=== PATIENT | female | born 1940 | race Caucasian/White ===

== ENCOUNTER → 2016-08-15 | Outpatient (CLI) | payer MEDICARE ==
[2016-08-15 12:30] LABS: Anion Gap 9 mmol/L; Blood Urea Nitrogen 22 mg/dL (7-17); Calcium 9.4 mg/dL (8.4-10.2); Carbon Dioxide 34 mmol/L (22-30); Chloride 99 mmol/L (98-107); Glucose 101 mg/dL (74-99); Magnesium 1.9 mg/dL (1.6-2.3); Non-African American GFR(MDRD) >60 (>60 ml/min/1.73 sqM); Sodium 142 mmol/L (137-145)
== END | disposition home or self-care (01) ==
LOC: LABWHC1 11:45
PROVIDERS: ATTEND Internal Medicine Interventional Cardiology
DX: I50.9 Heart failure, unspecified (principal); I10 Essential (primary) hypertension
CPT/HCPCS: 36415; 80048; 83735

== ENCOUNTER → 2016-09-29 | Outpatient (CLI) | payer MEDICARE ==
[2016-09-29 09:06] LABS: Basophils % (A) 1 %; CH 31.2; CHCM 31.3; Eosinophils # (A) 0.1 k/uL (0-0.7); Eosinophils % (A) 3 %; HCT 42.8 % (34.0-46.0); HGB 13.5 gm/dL (11.4-16.0); Hypochromasia Slight; Luc # (Auto) 0.16; Luc % (Auto) 3; Lymphocytes # (A) 1.6 k/uL (1.0-4.8); Lymphocytes % (A) 34 %; MCH 31.6 pg (25.0-35.0); MCHC 31.5 g/dL (31.0-37.0); MCV 100.2 fL (80.0-100.0); Macrocytosis Slight; Mean Platelet Volume 9.6; Monocytes # (A) 0.5 k/uL (0-1.0); Monocytes % (A) 10 %; Neutrophils # (A) 2.4 k/uL (1.3-7.7); Neutrophils % (A) 50 %; RBC 4.27 m/uL (3.80-5.40); RDW 14.4 % (11.5-15.5); WBC 4.8 k/uL (3.8-10.6); WBC (Perox) 5.26
[2016-09-29 09:08] LABS: INR 4.7 (<1.1); Prothrombin Time 46.1 sec (9.0-12.0)
[2016-09-29 09:20] LABS: Anion Gap 10 mmol/L; Blood Urea Nitrogen 18 mg/dL (7-17); Calcium 9.3 mg/dL (8.4-10.2); Carbon Dioxide 33 mmol/L (22-30); Chloride 101 mmol/L (98-107); Glucose 112 mg/dL (74-99); Non-African American GFR(MDRD) >60 (>60 ml/min/1.73 sqM); Potassium 4.1 mmol/L (3.5-5.1); Sodium 144 mmol/L (137-145)
== END | disposition home or self-care (01) ==
LOC: LABWHC1 08:35
PROVIDERS: ATTEND Internal Medicine Clinical Cardiac Electrophysiology
DX: E78.00 Pure hypercholesterolemia, unspecified (principal); I42.8 Other cardiomyopathies; I10 Essential (primary) hypertension
CPT/HCPCS: 36415; 80048; 85025; 85610

== ENCOUNTER 2016-10-02 14:30 | Day surgery (SDC) | payer MEDICARE ==
[2016-09-30 08:52] VITALS: BMI 31.0
[~2016-10-02 14:30] MED LIST: LACTATED RINGERS 1,000 ML IV SCH; LIDOCAINE 2% INJ 20 MG/ML SQ ONE; SODIUM CHLORIDE 0.9% 1,000 ML IV SCH; ceFAZolin 1,000 MG in SODIUM CHLORIDE 0.9% IRRIGATIO 250 ML IRRIGATION ONE; ceFAZolin 2 GM in SODIUM CHLORIDE 0.9% 100 ML IVPB ONE
[2016-10-02 15:20] LABS: INR 3.4 (<1.1); Prothrombin Time 33.3 sec (9.0-12.0)
--- NOTE | 2016-10-02 16:06 | P.PN ---
Progress Note - Text Patient arrived in the ESU at 1436 It is 4:06 PM at this time and the patient is not in the room on account of patient not being seen by the page designer
[2016-10-02] MEDS ORDERED: PROPOFOL 10 MG/ML 20 ML VIAL IV ONE (16:08)
[2016-10-02] MEDS ORDERED: MIDAZOLAM 2 MG/2 ML VIAL ONE (16:08)
[2016-10-02] MEDS ORDERED: ePHEDrine 50 MG/ML 1 ML AMP ONE (16:08)
[2016-10-02] MEDS ORDERED: fentaNYL (PF) 50 MCG/ML 2 ML AMP ONE (16:08)
[2016-10-02] MEDS ORDERED: IV FLUID CONTINUATION 1,000 ML IV ONE (16:08)
[2016-10-02] MEDS: ceFAZolin 1,000 MG in DEXTROSE/WATER 1 50ML.BAG IVPB STA ×2 (16:10→16:40)
--- NOTE | 2016-10-02 16:48 | P.PCN ---
Preoperative Diagnosis: Transvenous temporary pacing procedure Indication for the procedure: Severe underlying bradycardia, complete heart block, awaiting biventricular ICD generator change Patient was brought to the EP lab in a fasting state. Written informed consent was obtained prior to the procedure. The right groin was prepped and draped as a protocol. A 6-Kiswahili sheath was placed in the right femoral vein. Via this, a temporary pacing catheter was placed in the right ventricle. Thresholds were interrogated. Temporary pacing was performed through the rest of the procedure. At the end of the entire procedure, the TVP was removed. The sheath was removed and hemostasis was assured. Patient tolerated the procedure well without any acute complications. Procedure performed Transvenous temporary pacing
[2016-10-02] MEDS ORDERED: LIDOCAINE 1% INJ 10MG/ML (20 ML MDV) SQ ONE ×2 (17:06→17:25)
[2016-10-02] MEDS ORDERED: ACETAMINOPHEN TAB 325 MG TAB PO PRN (17:46)
[2016-10-02] MEDS ORDERED: HYDROcodone/APAP 5-325MG 1 EACH TAB PO PRN (17:46)
[2016-10-02] MEDS ORDERED: LORazepam 0.5 MG TAB PO PRN (17:47)
[2016-10-02] MEDS ORDERED: ACETAMINOPHEN IV (For NPO) 1,000 MG in EMPTY BAG 1 BAG IVPB ONE (18:15)
[2016-10-02] MEDS ORDERED: SODIUM CHLORIDE 0.9% 1,000 ML IV ONE ×2 (18:19)
[2016-10-02 18:35] VITALS: RESP 16
--- NOTE | 2016-10-02 19:12 | PCN ---
DATE OF PROCEDURE: Glenis Feliciano is a 75-year-old female with severe nonischemic cardiomyopathy with severe LV dysfunction and worsening heart failure status, class III. Over the last one year she has been more and more short of breath with tiredness and fatigue. She has also developed persistent atrial fibrillation. She has a biventricular ICD and is undergoing biventricular ICD generator change for normal battery depletion. The patient was brought to the EP lab in a fasting state. Written informed consent was obtained prior to the procedure. After the TVP was placed IV antibiotics were administered and then the left pectoral area was prepped and draped as per protocol. Lidocaine 1% was used for local anesthesia. An incision was made over the previous surgical site and carried down to the level of the generator. The old generator was explanted. The new generator was implanted. The leads were interrogated. The new generator was then implanted and secured to the underlying pectoralis muscle. The wound was closed in 3 layers and dressed per protocol. The chronic atrial lead was a Medtronic model #5076, serial #[id number]. She was in atrial fibrillation, pacing impedance 480 ohms. Chronic RV lead is a Medtronic model #6935, serial #[id number]. The patient has complete heart block, impedance 390 ohms. Pacing threshold 1 v at 0.5 ms. LV lead was a Medtronic model #4396, serial #[id number]. Pacing impedance 330 ohms. Pacing threshold 0.6 v at 0.5 ms. The old generator was a Medtronic [id number], serial #[id number]. The new generator was a [employer] model #ZV8747-52X, serial #[id number]. PROCEDURE: DFT testing under anesthesia. A shock and T-wave protocol was used to induce ventricular fibrillation. This was adequately and appropriately detected at least sensitivity and successfully internally defibrillated with a 10-joule shock. The charge time was 1.5 seconds. Shocking impedance 51 ohms. No post-shock noise. The device was then programmed to the MADIT-RIT programming. However, she does have complete heart block. PLAN: IV antibiotics. Start spironolactone. Check BNP. TSH was normal within the last 3 months. In view of worsening heart failure status, I would consider Entresto and conversion to sinus rhythm and maintenance rhythm with dofetilide.
--- NOTE | 2016-10-02 19:20 | LTR ---
October 02, 2016 RE: Glenis Feliciano Dear Taina, I had the pleasure of seeing Glenis Saezarirohit in electrophysiology followup. Taina underwent biventricular ICD generator change successfully. Leads are functioning normally. From a heart failure standpoint, she has shown progressive worsening over the last one year, probably corresponding with atrial fibrillation, and we will consider antiarrhythmic drug therapy for maintenance of sinus rhythm. I have also added spironolactone and will speak to Dr. Sanchez regarding addition of Entresto. Thank you for entrusting us with the care of your patient. Sincerely, ELIZABETH BADILLO MD
[2016-10-02] MEDS: SPIRONOLACTONE 25 MG TAB PO SCH (20:26)
[2016-10-02] MEDS: CARVEDILOL 6.25 MG TAB PO SCH (20:26)
[2016-10-02] MEDS: levETIRAcetam 500 MG TAB PO SCH (20:26)
[2016-10-02 20:38] LABS: Anion Gap 7 mmol/L; Blood Urea Nitrogen 14 mg/dL (7-17); Calcium 8.8 mg/dL (8.4-10.2); Carbon Dioxide 31 mmol/L (22-30); Chloride 102 mmol/L (98-107); Glucose 89 mg/dL (74-99); Non-African American GFR(MDRD) >60 (>60 ml/min/1.73 sqM); Potassium 3.9 mmol/L (3.5-5.1); Sodium 140 mmol/L (137-145)
[2016-10-02] MEDS: ceFAZolin 2 GM in SODIUM CHLORIDE 0.9% 100 ML IVPB SCH (22:27)
[2016-10-03] MEDS: ceFAZolin 2 GM in SODIUM CHLORIDE 0.9% 100 ML IVPB SCH ×3 (04:12→15:08)
[2016-10-03] MEDS ORDERED: LEVOTHYROXINE 100 MCG TAB PO SCH (06:30)
[2016-10-03] MEDS: CARVEDILOL 6.25 MG TAB PO SCH ×2 (08:10→18:36)
[2016-10-03] MEDS: SPIRONOLACTONE 25 MG TAB PO SCH (08:11)
[2016-10-03] MEDS: levETIRAcetam 500 MG TAB PO SCH (08:11)
--- NOTE | 2016-10-03 08:25 | DS ---
DATE OF ADMISSION: 10/02/2016 DATE OF DISCHARGE: Glenis is doing well. She is lying flat in bed. There is minimal soakage of the dressing. I removed her dressing over the ICD site. It is healing well. Heart sounds are normal. Breath sounds are normal. Her blood pressure is in normal range. She does have bilateral lower extremity edema and she is in atrial fibrillation. SUGGEST: Discharge home after completion of IV antibiotics, start spironolactone 25 mg p.o. daily and maximize further as tolerated. Her potassium is normal. Kidney function is normal. She has been complaining of increasing shortness of breath on exertion especially now more so with activities of daily living. She has been in atrial fibrillation for almost 1 year now. ( ) include maintenance of sinus rhythm with dofetilide since his renal function and potassium is normal and consideration for Entresto.
[2016-10-03 09:00] LABS: INR 3.2 (<1.1); Partial Thromboplastin Time 33.7 sec (22.0-30.0)
[2016-10-03] MEDS ORDERED: ASPIRIN 81 MG CHEW PO SCH (09:00)
[2016-10-03] MEDS ORDERED: FUROSEMIDE 20 MG TAB PO SCH (09:00)
[2016-10-03] MEDS ORDERED: LOSARTAN 50 MG TAB PO SCH (12:00)
[2016-10-03 12:56] VITALS: PULSE 59
[2016-10-03 16:17] VITALS: BP 116/68; TEMP 98.1
== END 2016-10-03 18:32 | disposition home or self-care (01) ==
LOC: CATHEP 14:30 → 3OBS 17:50 → CATHEP 10-03 18:32
PROVIDERS: ATTEND Internal Medicine Clinical Cardiac Electrophysiology
DX: Z45.02 Encounter for adjustment and management of automatic implantable cardiac defibrillator (principal); I44.2 Atrioventricular block, complete; R00.1 Bradycardia, unspecified; I48.2 Chronic atrial fibrillation; I34.0 Nonrheumatic mitral (valve) insufficiency; I42.8 Other cardiomyopathies; E78.00 Pure hypercholesterolemia, unspecified; I10 Essential (primary) hypertension; E03.9 Hypothyroidism, unspecified; G40.909 Epilepsy, unspecified, not intractable, without status epilepticus; Z86.73 Personal history of transient ischemic attack (TIA), and cerebral infarction without residual deficits; E78.5 Hyperlipidemia, unspecified; Z79.01 Long term (current) use of anticoagulants; Z79.82 Long term (current) use of aspirin; Z79.899 Other long term (current) drug therapy; Z88.8 Allergy status to other drugs, medicaments and biological substances; Z91.013 Allergy to seafood; Z87.891 Personal history of nicotine dependence
CPT/HCPCS: 93641; 33264; 80048; 85610 ×2; 85730; C1894; C1769; C1730; C1882; J2001 ×2; J2250; J0690 ×4; J3010; J2704

== ENCOUNTER 2016-10-30 12:05 | Day surgery (SDC) | payer MEDICARE ==
[~2016-10-30 12:05] MED LIST changes: -LACTATED RINGERS 1,000 ML IV SCH; -LIDOCAINE 2% INJ 20 MG/ML SQ ONE; -ceFAZolin 1,000 MG in SODIUM CHLORIDE 0.9% IRRIGATIO 250 ML IRRIGATION ONE
[2016-10-30 12:44] LABS: CH 32.1; HCT 36.7 % (34.0-46.0); HDW 2.15; HGB 11.9 gm/dL (11.4-16.0); MCH 32.8 pg (25.0-35.0); MCHC 32.5 g/dL (31.0-37.0); Macrocytosis Slight; Mean Platelet Volume 9.1; RBC 3.63 m/uL (3.80-5.40); RDW 14.9 % (11.5-15.5); WBC 4.2 k/uL (3.8-10.6)
[2016-10-30] MEDS ORDERED: LIDOCAINE 1% (PF) 10MG/ML VIAL SQ ONE ×2 (12:48)
[2016-10-30 12:50] LABS: INR 2.2 (<1.1); Prothrombin Time 21.1 sec (9.0-12.0)
[2016-10-30] MEDS ORDERED: CEPHALEXIN 500 MG CAP PO STA (12:56)
[2016-10-30 13:11] LABS: Anion Gap 8 mmol/L; Blood Urea Nitrogen 30 mg/dL (7-17); Calcium 9.6 mg/dL (8.4-10.2); Carbon Dioxide 30 mmol/L (22-30); Chloride 100 mmol/L (98-107); Glucose 91 mg/dL (74-99); Non-African American GFR(MDRD) >60 (>60 ml/min/1.73 sqM); Potassium 4.6 mmol/L (3.5-5.1); Sodium 138 mmol/L (137-145)
--- NOTE | 2016-10-30 13:18 | PCN ---
DATE OF PROCEDURE: Glenis Feliciano is an elderly female who underwent a generator change. She has a hematoma with a small area of oozing at the lateral border of the incision. She is brought in for suturing of that skin at the edge of the wound. Under local anesthesia, 3 silk sutures were placed at the lateral end of the wound; approximated the skin better. This was then dressed per protocol. Oral antibiotics were administered and she was discharged home in stable condition. We will see her in a week's time for suture removal.
== END 2016-10-30 13:25 | disposition home or self-care (01) ==
LOC: CATHEP 12:05
PROVIDERS: ATTEND Internal Medicine Clinical Cardiac Electrophysiology
DX: T81.31XA Disruption of external operation (surgical) wound, not elsewhere classified, initial encounter (principal); Z95.810 Presence of automatic (implantable) cardiac defibrillator; I48.2 Chronic atrial fibrillation; Z79.01 Long term (current) use of anticoagulants; I42.8 Other cardiomyopathies; E78.00 Pure hypercholesterolemia, unspecified; I10 Essential (primary) hypertension; E78.5 Hyperlipidemia, unspecified; Z87.891 Personal history of nicotine dependence; Z79.82 Long term (current) use of aspirin; Z79.899 Other long term (current) drug therapy; Z88.8 Allergy status to other drugs, medicaments and biological substances; Z91.013 Allergy to seafood
CPT/HCPCS: 83880; 80048; 85027; 85610; 12020; J2001

== ENCOUNTER → 2017-03-20 | Outpatient (CLI) | payer MEDICARE ==
[2017-03-20 11:46] LABS: CH 32.1; HCT 34.7 % (34.0-46.0); HDW 2.12; HGB 11.5 gm/dL (11.4-16.0); MCH 33.4 pg (25.0-35.0); MCHC 33.1 g/dL (31.0-37.0); MCV 100.9 fL (80.0-100.0); Mean Platelet Volume 9.1; RBC 3.44 m/uL (3.80-5.40); RDW 12.9 % (11.5-15.5); WBC 4.8 k/uL (3.8-10.6)
[2017-03-20 11:59] LABS: Anion Gap 8 mmol/L; Blood Urea Nitrogen 39 mg/dL (7-17); Calcium 9.5 mg/dL (8.4-10.2); Carbon Dioxide 27 mmol/L (22-30); Chloride 104 mmol/L (98-107); Cholesterol 182 mg/dL (<200); Glucose 99 mg/dL (74-99); HDL Cholesterol 76 mg/dL (40-60); Magnesium 1.8 mg/dL (1.6-2.3); Non-African American GFR(MDRD) 51 (>60 ml/min/1.73 sqM); Potassium 4.7 mmol/L (3.5-5.1); Sodium 139 mmol/L (137-145)
== END | disposition home or self-care (01) ==
LOC: LABWHC1 11:07
PROVIDERS: ATTEND Internal Medicine Interventional Cardiology
DX: E03.9 Hypothyroidism, unspecified (principal)
CPT/HCPCS: 36415; 80048; 80061; 83735; 84439; 84443; 85027

== ENCOUNTER → 2017-07-30 | Outpatient (CLI) | payer MEDICARE | END | disposition home or self-care (01) | LOC: MMGSC 15:39 | PROVIDERS: ATTEND Family Medicine | DX: R31.9 Hematuria, unspecified (principal) | CPT/HCPCS: 87086 ==

== ENCOUNTER 2017-12-03 10:26 | Day surgery (SDC) | payer MEDICARE ==
[2017-12-01 15:26] VITALS: BMI 25.4
[~2017-12-03 10:26] MED LIST changes: +LACTATED RINGERS 1,000 ML IV SCH; -SODIUM CHLORIDE 0.9% 1,000 ML IV SCH; -ceFAZolin 2 GM in SODIUM CHLORIDE 0.9% 100 ML IVPB ONE
[2017-12-03 11:19] VITALS: RESP 16; TEMP 97
[2017-12-03] MEDS ORDERED: LIDOCAINE 1% 20 ML VIAL (10MG/ML) FOR IV START INTRADERMA ONE (11:24)
[2017-12-03] MEDS ORDERED: PROPOFOL 10 MG/ML 20 ML VIAL IV ONE (11:47)
--- NOTE | 2017-12-03 12:31 | P.PCN ---
Date of Procedure: 12/03/17 Procedure(s) Performed: Procedure: Esophagogastroduodenoscopy and biopsy and esophageal dilation using the Microvasive mimtfem-cko-udpra balloon dilator up to 11 mm.. Preoperative diagnosis: Dysphagia. Postoperative diagnosis: 1. Hiatal hernia and stenosis in the distal esophagus that could represent benign or malignant stricture with retained food material proximal to the stricture. 2. Microvasive xuoqphu-fcd-cwzhs balloon dilator size then to 12 mm was used and was inflated to 11 mm to allow the advancement of the pediatric upper endoscope. 3. No obvious pathology in the stomach and duodenum including the retroflex view in the cardia. 4. Biopsies obtained in the distal esophagus to rule out malignancy. Preparation and sedation: Was provided by anesthesia. Brief clinical history: The patient is a 77-year-old female who was evaluated in the office and scheduled for this examination because of dysphagia of 1 month duration and weight loss. Procedure: With the patient on her left lateral decubitus position and after informed consent and adequate sedation, I passed the Olympus-GIF 160 video upper endoscope, which measures 9.9 mm, through the cricopharyngeus down the esophagus. There was retained food material in the esophagus that was gently advanced into the stomach by pressure with the endoscope. There was stenosis in the distal esophagus that would not allow the advancement of the endoscope. The distal esophagus showed irregularity and friability that in part could be related to the impacted food material as well as trauma from the endoscope. I proceeded to dilate the esophagus using the Microvasive alphrsl-oqk-mzqys balloon dilator size 10 to 12 mm., I centered it at the level of the stricture and inflated it in a stepwise fashion to 11 mm. As I was still not able to pass the endoscope through into the stomach despite dilation, I exchanged the endoscope for a pediatric upper endoscope which measured 9.2 mm. I was then able to pass the endoscope across the distal esophagus through a hiatal hernia into the stomach. The distal esophagus was showing some friability, nodularity and edema limited to the level of the GE junction and I suspected there could be a short segment of Paz's esophagus. I insufflated the stomach with air and inspected in the retroflex view in the cardia. No obvious abnormalities seen. Pyloric channel, duodenal bulb, post bulbar area and descending duodenum appeared within normal limits. At this point, I obtained biopsies in the distal esophagus before the endoscope was withdrawn. The patient tolerated the procedure well. Plan: I summarized the findings to the patient and the family. We will keep on clear liquids today before she can advance her diet tomorrow to full fluids then to advance further after that as tolerated. I will see her in the office in follow-up in a week or 10 days and consider repeat endoscopy and dilation or other interventions depending on her symptoms and biopsy results. I will keep you updated on her progress.
[2017-12-03 12:57] VITALS: BP 95/53; PULSE 62
== END 2017-12-03 13:18 | disposition home or self-care (01) ==
LOC: ORWHC2ENDO 10:26
DX: C15.9 Malignant neoplasm of esophagus, unspecified (principal); K44.9 Diaphragmatic hernia without obstruction or gangrene; K22.2 Esophageal obstruction; I48.91 Unspecified atrial fibrillation; I11.0 Hypertensive heart disease with heart failure; I50.9 Heart failure, unspecified; R56.9 Unspecified convulsions; E78.5 Hyperlipidemia, unspecified; Z95.810 Presence of automatic (implantable) cardiac defibrillator; Z86.73 Personal history of transient ischemic attack (TIA), and cerebral infarction without residual deficits; Z79.82 Long term (current) use of aspirin; Z79.899 Other long term (current) drug therapy; Z88.8 Allergy status to other drugs, medicaments and biological substances; Z91.013 Allergy to seafood
CPT/HCPCS: 88305; 43239; 43249; J2704; C1726

== ENCOUNTER → 2017-12-26 | Outpatient (CLI) | payer MEDICARE | END | disposition home or self-care (01) | LOC: RADPETMAIN 09:31 | PROVIDERS: ATTEND Internal Medicine Hematology & Oncology | DX: C15.9 Malignant neoplasm of esophagus, unspecified (principal); Z53.9 Procedure and treatment not carried out, unspecified reason ==

== ENCOUNTER 2018-01-28 14:18 | Observation (INO) | payer MEDICARE ==
[2018-01-28] MEDS ORDERED: IPRATROPIUM-ALBUTEROL 3 ML NEB INHALATION STA (14:52)
--- NOTE | 2018-01-28 14:58 | ED ---
General Adult HPI - General Chief complaint: Shortness of Breath Stated complaint: FAUSTINO/Esophagal Ca Time Seen by Provider: 01/28/18 14:36 Source: patient, family, RN notes reviewed Mode of arrival: wheelchair Limitations: no limitations - History of Present Illness Initial comments: Patient is a pleasant 77-year-old female presenting to the emergency department with shortness of breath and pain. Pain is throughout her abdomen and somewhat the left chest. Symptoms started around 24 hours or so ago. Patient has a known history of blood clots in her legs and is on anticoagulation for this. Patient has a recent diagnosis less than 2 months ago esophageal cancer. Patient did have PET scan showing metastasis to the liver. Patient has been here as well as on for hospital as well as [facility]. Patient did have stent placement of the esophagus twice and removed. Patient now does have a feeding tube present. - Related Data Home Medications Medication Instructions Recorded Confirmed Aspirin 81 mg PO DAILY 08/01/14 01/28/18 Levothyroxine Sodium [Synthroid] 100 mcg PO QAM 08/01/14 01/28/18 Sacubitril/Valsartan [Entresto 24 1 each PO BID 12/01/17 01/28/18 mg-26 mg Tablet] Acetaminophen Tab [Tylenol Tab] 325 - 650 mg PO Q4H PRN 01/28/18 01/28/18 Enoxaparin [Lovenox] 80 mg SQ Q12H 01/28/18 01/28/18 Folic Acid 1 mg PO DAILY 01/28/18 01/28/18 Furosemide [Lasix] 40 mg PO BID 01/28/18 01/28/18 Gabapentin [Neurontin] 100 mg PO TID 01/28/18 01/28/18 Hydrocodone/Acetaminophen [Hycet 5 - 10 ml PO Q4HR PRN 01/28/18 01/28/18 7.5 mg-325 mg/15 ml Soln] Omeprazole [PriLOSEC] 20 mg PO AC-BRKFST 01/28/18 01/28/18 Thiamine [Vitamin B-1] 100 mg PO DAILY 01/28/18 01/28/18 Allergies Allergy/AdvReac Type Severity Reaction Status Date / Time shellfish derived Allergy Vomiting Verified 01/28/18 15:56 Qxskyhh-Mfb-Rxz Reductase AdvReac MUSCLE Verified 01/28/18 15:56 Inhibitor PAINS Review of Systems ROS Statement: Those systems with pertinent positive or pertinent negative responses have been documented in the HPI. ROS Other: All systems not noted in ROS Statement are negative. Constitutional: Denies: fever Eyes: Denies: eye pain ENT: Denies: ear pain Respiratory: Reports: dyspnea. 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, pneumonia,bronchitis, esaphegal cancer History of Any Multi-Drug Resistant Organisms: None Reported Past Surgical History: AICD, Bladder Surgery, Cholecystectomy, Hysterectomy Additional Past Surgical History / Comment(s): difibrillator/pacemaker left chest-Medtronic, stent in esaphagus december 2017, feeding tube Past Anesthesia/Blood Transfusion Reactions: No Reported Reaction, Family History of Problems w/ Anesthesia Additional Past Anesthesia/Blood Transfusion Reaction / Comment(s): father had anesthesia for bladder bx and did not wake up after surgery at age 80 Type of Cardiac Device: AICD Device Placement Date:: 2016 Past Psychological History: No Psychological Hx Reported Smoking Status: Former smoker Past Alcohol Use History: Rare Past Drug Use History: None Reported - Past Family History father Family Medical History: Cancer Additional Family Medical History / Comment(s): bladder mother Family Medical History: Congestive Heart Failure (CHF), Deep Vein Thrombosis ( DVT) General Exam Limitations: no limitations General appearance: alert, in no apparent distress Head exam: Present: atraumatic Eye exam: Present: normal appearance, PERRL ENT exam: Present: normal oropharynx Neck exam: Present: normal inspection Respiratory exam: Present: decreased breath sounds (Left lower lobe) Cardiovascular Exam: Present: irregular rhythm GI/Abdominal exam: Present: soft, tenderness (Diffuse abdominal tenderness). Absent: distended Extremities exam: Present: pedal edema. Absent: calf tenderness Neurological exam: Present: alert Psychiatric exam: Present: normal affect, normal mood Skin exam: Present: normal color Course Vital Signs 07/26/18 07/26/18 07/26/18 14:21 15:15 15:27 Temperature 98.2 F Pulse Rate 61 55 L 49 L Respiratory 22 Rate Blood Pressure 106/66 O2 Sat by Pulse 99 Oximetry EKG Findings - EKG Comments: EKG Findings:: Atrial flutter with a rate of 67. QRS 152. QT 508. QTC 536. Normal axis. Left bundle branch block. Nonspecific ST-T. Medical Decision Making - Medical Decision Making Patient does have CHF. Case was discussed in detail with Dr. Dyson, covering with [facility], who will admit for Dr. Denis. He is aware CT is pending. Patient updated. - Lab Data Result diagrams: 01/28/18 14:58 01/28/18 14:58 Lab Results 01/28/18 01/28/18 01/28/18 Range/Units 14:58 14:58 14:58 WBC 8.1 (3.8-10.6) k/uL RBC 2.91 L (3.80-5.40) m/uL Hgb 8.7 L (11.4-16.0) gm/dL Hct 27.6 L (34.0-46.0) % MCV 94.7 (80.0-100.0) fL MCH 30.0 (25.0-35.0) pg MCHC 31.6 (31.0-37.0) g/dL RDW 15.4 (11.5-15.5) % Plt Count 307 (150-450) k/uL Neutrophils % 71 % Lymphocytes % 19 % Monocytes % 7 % Eosinophils % 0 % Basophils % 0 % Neutrophils # 5.7 (1.3-7.7) k/uL Lymphocytes # 1.5 (1.0-4.8) k/uL Monocytes # 0.6 (0-1.0) k/uL Eosinophils # 0.0 (0-0.7) k/uL Basophils # 0.0 (0-0.2) k/uL Hypochromasia Marked Poikilocytosis Slight PT (9.0-12.0) sec INR (<1.2) APTT (22.0-30.0) sec Sodium 134 L (137-145) mmol/L Potassium 4.1 (3.5-5.1) mmol/L Chloride 91 L (98-107) mmol/L Carbon Dioxide 32 H (22-30) mmol/L Anion Gap 11 mmol/L BUN 24 H (7-17) mg/dL Creatinine 0.60 (0.52-1.04) mg/dL Est GFR (CKD-EPI)AfAm >90 (>60 ml/min/1.73 sqM) Est GFR (CKD-EPI)NonAf 89 (>60 ml/min/1.73 sqM) Glucose 145 H (74-99) mg/dL Calcium 8.3 L (8.4-10.2) mg/dL Total Bilirubin 0.6 (0.2-1.3) mg/dL AST 58 H (14-36) U/L ALT 52 (9-52) U/L Alkaline Phosphatase 133 H (38-126) U/L NT-Pro-B Natriuret Pep 8570 pg/mL Total Protein 7.0 (6.3-8.2) g/dL Albumin 3.0 L (3.5-5.0) g/dL 01/28/18 Range/Units 14:58 WBC (3.8-10.6) k/uL RBC (3.80-5.40) m/uL Hgb (11.4-16.0) gm/dL Hct (34.0-46.0) % MCV (80.0-100.0) fL MCH (25.0-35.0) pg MCHC (31.0-37.0) g/dL RDW (11.5-15.5) % Plt Count (150-450) k/uL Neutrophils % % Lymphocytes % % Monocytes % % Eosinophils % % Basophils % % Neutrophils # (1.3-7.7) k/uL Lymphocytes # (1.0-4.8) k/uL Monocytes # (0-1.0) k/uL Eosinophils # (0-0.7) k/uL Basophils # (0-0.2) k/uL Hypochromasia Poikilocytosis PT 13.2 H (9.0-12.0) sec INR 1.4 H (<1.2) APTT 36.6 H (22.0-30.0) sec Sodium (137-145) mmol/L Potassium (3.5-5.1) mmol/L Chloride (98-107) mmol/L Carbon Dioxide (22-30) mmol/L Anion Gap mmol/L BUN (7-17) mg/dL Creatinine (0.52-1.04) mg/dL Est GFR (CKD-EPI)AfAm (>60 ml/min/1.73 sqM) Est GFR (CKD-EPI)NonAf (>60 ml/min/1.73 sqM) Glucose (74-99) mg/dL Calcium (8.4-10.2) mg/dL Total Bilirubin (0.2-1.3) mg/dL AST (14-36) U/L ALT (9-52) U/L Alkaline Phosphatase (38-126) U/L NT-Pro-B Natriuret Pep pg/mL Total Protein (6.3-8.2) g/dL Albumin (3.5-5.0) g/dL - Radiology Data Radiology results: image reviewed (Chest x-ray shows cardiomegaly with pulmonary venous congestion. Left basilar infiltrate.) Disposition Clinical Impression: Congestive heart failure Disposition: ADMITTED IP TO THIS HOSP Is patient prescribed a controlled substance at d/c from ED?: No Referrals: Taina Ramirez MD [Primary Care Provider] - 1-2 days Decision Time: 17:22
[2018-01-28 15:14] LABS: Basophils % (A) 0 %; Eosinophils % (A) 0 %; HCT 27.6 % (34.0-46.0); HGB 8.7 gm/dL (11.4-16.0); Hypochromasia Marked; Lymphocytes # (A) 1.5 k/uL (1.0-4.8); Lymphocytes % (A) 19 %; MCHC 31.6 g/dL (31.0-37.0); MCV 94.7 fL (80.0-100.0); Monocytes # (A) 0.6 k/uL (0-1.0); Monocytes % (A) 7 %; Neutrophils # (A) 5.7 k/uL (1.3-7.7); Neutrophils % (A) 71 %; Platelet Count 307 k/uL (150-450); Poikilocytosis Slight; RBC 2.91 m/uL (3.80-5.40); RDW 15.4 % (11.5-15.5); WBC 8.1 k/uL (3.8-10.6)
[2018-01-28 15:20] LABS: ALT 52 U/L (9-52); Alkaline Phosphatase 133 U/L (38-126); Anion Gap 11 mmol/L; Calcium 8.3 mg/dL (8.4-10.2); Carbon Dioxide 32 mmol/L (22-30); Chloride 91 mmol/L (98-107); Glucose 145 mg/dL (74-99); Sodium 134 mmol/L (137-145); Total Bilirubin 0.6 mg/dL (0.2-1.3)
[2018-01-28 15:27] LABS: INR 1.4 (<1.2); Partial Thromboplastin Time 36.6 sec (22.0-30.0); Prothrombin Time 13.2 sec (9.0-12.0)
[2018-01-28 15:31] LABS: AST 58 U/L (14-36); Blood Urea Nitrogen 24 mg/dL (7-17); Potassium 4.1 mmol/L (3.5-5.1)
[2018-01-28] MEDS ORDERED: methylPREDNISolone SOD SUCCI 125 MG/2 ML VIAL IV STA (15:40)
[2018-01-28] MEDS ORDERED: FAMOTIDINE 20 MG/2 ML VIAL IV STA (15:40)
[2018-01-28] MEDS ORDERED: diphenhydrAMINE 50 MG/ML 1 ML VIAL IVP STA (15:40)
--- NOTE | 2018-01-28 15:54 | XR ---
EXAMINATION TYPE: XR chest 2V DATE OF EXAM: 01/28/2018 COMPARISON: August 29, 2015 HISTORY: Shortness of breath TECHNIQUE: Frontal and lateral views of the chest are obtained. FINDINGS: Scattered senescent parenchymal changes noted. Hyperinflation compatible with COPD. Cardiomegaly with pulmonary venous congestion and left basilar infiltrate. Mediastinal structures are stable and grossly unremarkable. No evidence for hilar prominence. Degenerative changes dorsal spine. IMPRESSION: 1. Cardiomegaly with pulmonary venous congestion and left basilar infiltrate.
[2018-01-28] MEDS ORDERED: ASPIRIN 325 MG TAB PO STA (17:23)
--- NOTE | 2018-01-28 17:39 | CT ---
EXAMINATION TYPE: CT angio chest with contrast and with 3-D reconstruction renderings DATE OF EXAM: 01/28/2018 5:29 PM COMPARISON: None. HISTORY: Difficulty breathing. CT DLP: 110.2 mGycm Automated exposure control for dose reduction was used. CONTRAST: CTA scan of the thorax is performed with IV Contrast, patient injected with 100 mL of Isovue 370, pul monary embolism protocol. 3-D reconstructions. FINDINGS: There is marked cardiomegaly and panchamber enlargement with coronary calcifications. There are moderate bilateral pleural effusions with moderate passive atelectasis of the lower lobes b ilaterally. There is evidence of interstitial phase pulmonary edema. The pulmonary arterial tree is widely patent without evidence of pulmonary emboli, but the pulmonary arterial tree is prominent in caliber which can correlate with a clinical diagnosis of pulmonary hype rtension. The aorta is not opacified well, but is unremarkable as seen. Skeletal structures are unremarkable. Visualized extrathoracic soft tissues are unremarkable. IMPRESSION: 1. Negative for pulmonary embolism. 2. Positive for bilateral pleural effusions and bibasilar atelectasis and interstitial phase pulmonar y edema.
[2018-01-28] MEDS: FUROSEMIDE 10 MG/ML 4 ML VIAL IV SCH (17:57)
--- NOTE | 2018-01-28 17:58 | CT ---
EXAMINATION TYPE: CT abdomen pelvis w con DATE OF EXAM: 01/28/2018 COMPARISON: None HISTORY: Pain CT DLP: 1301.6 mGycm Automated exposure control for dose reduction was used. TECHNIQUE: Helical acquisition of images was performed from the lung bases through the pelvis. CONTRAST: Performed without Oral Contrast and with IV Contrast, patient injected with 100 mL of Isovu e 370. FINDINGS: VISUALIZED SUPRADIAPHRAGMATIC STRUCTURES: Please refer to chest CTA report. Moderate bilateral pleura l effusions with prominent bibasilar atelectasis. Marked cardiomegaly with interstitial phase pulmona ry edema. LIVER/GB: There are numerous 1 cm, too centimeter and 3 cm low-attenuation spherical lesions within t he liver, having the appearance of metastatic neoplasm. Biliary tree unremarkable. PANCREAS: No significant abnormality is seen. SPLEEN: No significant abnormality is seen. ADRENALS: No significant abnormality is seen. KIDNEYS: No significant abnormality is seen. PERITONEAL CAVITY: There is a small volume of dependent fluid in the pelvic cul-de-sac. No pneumoperi toneum. ADENOPATHY: None visualized REPRODUCTIVE ORGANS: No significant abnormality is seen URINARY BLADDER: No significant abnormality is seen. PELVIC ADENOPATHY: None visualized. OSSEOUS STRUCTURES: No significant abnormality is seen. BOWEL: No significant abnormality is seen. VASCULATURE: No acute findings. OTHER: Prominent subcutaneous edematous changes seen circumferentially. IMPRESSION: 1. MULTIFOCAL LIVER LESIONS, HAVING THE APPEARANCE OF METASTATIC NEOPLASM. 2. MILD VOLUME SIMPLE-APPEARING PERITONEAL FLUID WITHIN THE CUL-DE-SAC.
[2018-01-28] MEDS ORDERED: Potassium Replacement Protocol 1 EACH MISC MISCELLANE PRN (17:59)
[2018-01-28] MEDS ORDERED: Magnesium Replacement Protocol 1 EACH MISC MISCELLANE PRN (17:59)
[2018-01-28] MEDS ORDERED: LACTULOSE 20 GM/30 ML CUP PO ONE (18:03)
--- NOTE | 2018-01-28 18:12 | P.HPIM ---
History of Present Illness H&P Date: 01/28/18 Chief Complaint: Shortness of breath This is a 77-year-old female with very complex past medical history significant for recently diagnosed metastatic esophageal cancer, underlying systolic heart failure, and chronic atrial fibrillation who presented to the emergency room with shortness of breath. Patient is a very poor historian. She told me that she had a follow-up appointment with her oncologist last week and after work she started feeling more short of breath. She said that her shortness of breath got significantly worse yesterday and today. She said that usually she is able to ambulate but in the last 24 hours she was feeling short of breath with minimal exertion. She also reported worsening bilateral lower extremity edema. Apparently, patient was diagnosed with metastatic esophageal cancer approximately 2 months ago and subsequently had an esophageal stent placed twice that failed and subsequently underwent a PEG tube insertion and currently getting all of her feeding through the PEG tube. Patient is also complaining of abdominal pain that she describes as generalized. She said that this being going on for 2 months. It's all over her abdomen. She rated as mild and 4 out of 10 in severity. Patient reports constipation and last bowel movement was several days ago. She otherwise denies nausea or vomiting. No fevers or chills. Patient was evaluated in the emergency room, and was found to have significant fluid overload both clinically and on chest x-ray. She underwent computed tomography scan of the chest, abdomen, and pelvis that report is still pending. She is being admitted for further evaluation. Review of Systems Review of system: 14 points review of systems were obtained and were negative except to what were mentioned in the HPI. 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, pneumonia,bronchitis, esaphegal cancer History of Any Multi-Drug Resistant Organisms: None Reported Past Surgical History: AICD, Bladder Surgery, Cholecystectomy, Hysterectomy Additional Past Surgical History / Comment(s): difibrillator/pacemaker left chest-Medtronic, stent in esaphagus december 2017, feeding tube Past Anesthesia/Blood Transfusion Reactions: No Reported Reaction, Family History of Problems w/ Anesthesia Additional Past Anesthesia/Blood Transfusion Reaction / Comment(s): father had anesthesia for bladder bx and did not wake up after surgery at age 80 Type of Cardiac Device: AICD Device Placement Date:: 2016 Past Psychological History: No Psychological Hx Reported Smoking Status: Former smoker Past Alcohol Use History: Rare Past Drug Use History: None Reported - Past Family History father Family Medical History: Cancer Additional Family Medical History / Comment(s): bladder mother Family Medical History: Congestive Heart Failure (CHF), Deep Vein Thrombosis ( DVT) Medications and Allergies Home Medications Medication Instructions Recorded Confirmed Type Aspirin 81 mg PO DAILY 08/01/14 01/28/18 History Levothyroxine Sodium [Synthroid] 100 mcg PO QAM 08/01/14 01/28/18 History Sacubitril/Valsartan [Entresto 24 1 each PO BID 12/01/17 01/28/18 History mg-26 mg Tablet] Acetaminophen Tab [Tylenol Tab] 325 - 650 mg PO Q4H PRN 01/28/18 01/28/18 History Enoxaparin [Lovenox] 80 mg SQ Q12H 01/28/18 01/28/18 History Folic Acid 1 mg PO DAILY 01/28/18 01/28/18 History Furosemide [Lasix] 40 mg PO BID 01/28/18 01/28/18 History Gabapentin [Neurontin] 100 mg PO TID 01/28/18 01/28/18 History Hydrocodone/Acetaminophen [Hycet 5 - 10 ml PO Q4HR PRN 01/28/18 01/28/18 History 7.5 mg-325 mg/15 ml Soln] Omeprazole [PriLOSEC] 20 mg PO AC-BRKFST 01/28/18 01/28/18 History Thiamine [Vitamin B-1] 100 mg PO DAILY 01/28/18 01/28/18 History Allergies Allergy/AdvReac Type Severity Reaction Status Date / Time shellfish derived Allergy Vomiting Verified 01/28/18 15:56 Zwqqqcj-Wai-Yqi Reductase AdvReac MUSCLE Verified 01/28/18 15:56 Inhibitor PAINS Physical Exam Vitals: Vital Signs Temp Pulse Resp BP Pulse Ox 01/28/18 18:00 97.9 F 60 18 131/70 98 01/28/18 15:27 49 L 01/28/18 15:15 55 L 07/26/18 14:21 98.2 F 61 22 106/66 99 Intake and Output 01/28/18 01/28/18 01/28/18 06:59 14:59 22:59 Other: Weight 68.039 kg General: The patient is awake and alert, in no distress. She appears chronically ill Eye: there is normal conjunctiva bilaterally. Neck: The neck is supple Cardiovascular: Heart sounds are distant. Normal S1-S2, no S3-S4, no murmurs. Respiratory: Lungs with bibasilar crackles Gastrointestinal: Abdomen is soft, nontender. PEG tube in place Musculoskeletal: There is +2-3 pedal edema. Neurological:. Speech is normal. Skin: Skin is warm and dry Results CBC & Chem 7: 01/28/18 14:58 01/28/18 14:58 Labs: Abnormal Lab Results - Last 24 Hours (Table) 01/28/18 01/28/18 01/28/18 Range/Units 14:58 14:58 14:58 RBC 2.91 L (3.80-5.40) m/uL Hgb 8.7 L (11.4-16.0) gm/dL Hct 27.6 L (34.0-46.0) % PT 13.2 H (9.0-12.0) sec INR 1.4 H (<1.2) APTT 36.6 H (22.0-30.0) sec Sodium 134 L (137-145) mmol/L Chloride 91 L (98-107) mmol/L Carbon Dioxide 32 H (22-30) mmol/L BUN 24 H (7-17) mg/dL Glucose 145 H (74-99) mg/dL Calcium 8.3 L (8.4-10.2) mg/dL AST 58 H (14-36) U/L Alkaline Phosphatase 133 H (38-126) U/L Albumin 3.0 L (3.5-5.0) g/dL Assessment and Plan Assessment: 1. Acute systolic heart failure exacerbation, with elevated BNP and evidence of fluid overload both clinically and on x-ray. Started on IV Lasix 40 mg every 8 hours. I would obtain echocardiogram as no recent echo is available for me to review. Cardiology consulted. We will continue telemetry monitoring. Monitor kidney function and electrolytes closely. 2. Dyspnea, most likely secondary to underlying heart failure exacerbation. Computed tomography scan of the chest was negative for PE. 3. 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 Plan to follow up with her oncologist at [facility] as directed in February. Not on any chemotherapy as of now 4. Chronic atrial fibrillation: Rate controlled. 12-lead ECG in the emergency room showed atrial flutter. Cardiology consulted for further evaluation 5. History of chronic lower extremity DVT, on anticoagulation with Lovenox. We will continue 6. Constipation, awaiting computed tomography scan of the abdomen report. I would give one-time dose of lactulose. Abdomen is soft and nontender. 7. Status post PEG tube insertion secondary to underlying esophageal cancer. Continue tube feeding. Dietitian consulted. Today, I reviewed her medication list and lab work results. No family members at bedside at this time. We will continue current regimen. Repeat lab work in the morning. Appreciate consultants recommendations.
[2018-01-28] MEDS: NITROGLYCERIN OINT 1 INCH/GM PACKET TOPICAL SCH ×2 (18:40→21:57)
[2018-01-28 18:47] LABS: Amylase 116 U/L (30-110); Lipase 652 U/L (23-300)
[2018-01-28] MEDS: ENOXAPARIN 80 MG/0.8 ML SYRINGE SQ SCH (21:43)
[2018-01-28] MEDS: GABAPENTIN 100 MG CAP PO SCH (21:44)
[2018-01-28] MEDS: SACUBITRIL/VALSARTAN 24 MG-26 MG TABLET PO SCH (21:44)
[2018-01-29] MEDS: FUROSEMIDE 10 MG/ML 4 ML VIAL IV SCH ×3 (01:12→21:07)
[2018-01-29] MEDS: HYDROcodone/APAP 7.5-325MG 1 EACH TAB PO PRN ×2 (04:34→12:54)
[2018-01-29] MEDS ORDERED: LEVOTHYROXINE 100 MCG TAB PO SCH ×2 (06:30→09:00)
[2018-01-29 06:32] LABS: Anion Gap 5 mmol/L; Blood Urea Nitrogen 22 mg/dL (7-17); Calcium 8.1 mg/dL (8.4-10.2); Carbon Dioxide 35 mmol/L (22-30); Chloride 93 mmol/L (98-107); Glucose 137 mg/dL (74-99); Magnesium 1.8 mg/dL (1.6-2.3); Potassium 3.6 mmol/L (3.5-5.1); Sodium 133 mmol/L (137-145)
[2018-01-29] MEDS: PANTOPRAZOLE 40 MG TABLET PO SCH (06:35)
[2018-01-29] MEDS: LEVOTHYROXINE 100 MCG TAB PO SCH (06:36)
[2018-01-29 06:38] LABS: Basophils % (A) 0 %; Eosinophils % (A) 0 %; HCT 23.4 % (34.0-46.0); HGB 7.4 gm/dL (11.4-16.0); Hypochromasia Marked; Lymphocytes # (A) 0.9 k/uL (1.0-4.8); Lymphocytes % (A) 17 %; MCH 30.9 pg (25.0-35.0); MCHC 31.9 g/dL (31.0-37.0); MCV 96.9 fL (80.0-100.0); Mean Platelet Volume 9.1; Monocytes # (A) 0.2 k/uL (0-1.0); Monocytes % (A) 3 %; Neutrophils # (A) 4.1 k/uL (1.3-7.7); Neutrophils % (A) 79 %; Platelet Count 249 k/uL (150-450); Poikilocytosis Slight; RBC 2.41 m/uL (3.80-5.40); RDW 15.9 % (11.5-15.5); WBC 5.2 k/uL (3.8-10.6)
[2018-01-29] MEDS ORDERED: PANTOPRAZOLE 40 MG TABLET PO SCH ×2 (07:30→09:00)
[2018-01-29] MEDS ORDERED: ASPIRIN 81 MG PO SCH (09:00)
[2018-01-29] MEDS: SACUBITRIL/VALSARTAN 24 MG-26 MG TABLET PO SCH ×2 (09:44→21:07)
[2018-01-29] MEDS: ENOXAPARIN 80 MG/0.8 ML SYRINGE SQ SCH ×2 (09:44→21:07)
[2018-01-29] MEDS: THIAMINE 100 MG TAB PO SCH (09:45)
[2018-01-29] MEDS: GABAPENTIN 100 MG CAP PO SCH ×3 (09:45→21:07)
[2018-01-29] MEDS: FOLIC ACID 1 MG TAB PO SCH (09:45)
--- NOTE | 2018-01-29 09:48 | P.CRDCN ---
History of Present Illness Consult date: 01/29/18 Requesting physician: Daina Ni Reason for Consult (text): CHF Chief complaint: shortness of breath History of present illness: This is a pleasant 77-year-old female patient who follows with Dr. CAROLYNN Sanchez in the office. She has a known history of nonischemic cardiomyopathy, biventricular ICD, CVA, seizure disorders, dyslipidemia, hypertension, persistent atrial fibrillation, recent G-tube placement and recent diagnosis of esophageal cancer with liver metastasis. She was apparently off of Entresto for about 2 weeks. She presented to the emergency department with complaints of progressively worsening shortness of breath as well as abdominal pain. She denied PND or orthopnea but did notice some increased edema in her lower extremities. This x-ray on admission showed cardiomegaly with pulmonary venous congestion and a left basilar infiltrate. Computed tomography scan of the abdomen showed multifocal liver lesions having the appearance of metastatic neoplasm. CTA of the chest was negative for pulmonary embolism but did show positive for bilateral pleural effusions and bibasilar atelectasis and interstitial phase pulmonary edema. EKG on admission showed atrial flutter with a biventricular pacing. She is currently on Lovenox. Laboratory values were reviewed and showed hemoglobin of 7.4 this morning, down from 8.7. BUN of 22, creatinine 0.59, NT proBNP 8570 with elevated AST, alkaline phosphatase, amylase and lipase. Available echocardiogram from the office done in October 2016 showed severely decreased systolic function with ejection fraction of 35%, mild mitral regurgitation, mild to moderate aortic regurgitation and moderate tricuspid regurgitation with moderately increased PASP. She did have repeat echocardiogram done yesterday for which results are not available. Upon examination, patient is resting in bed. She continues to complain of abdominal pain however feels her breathing has significantly improved. She is currently on Lasix 40 mg IV push every 8 hours. She is diuresing well. Her Entresto has been resumed. Past Medical History Past Medical History: Atrial Fibrillation, Cancer, Heart Failure, CVA/TIA, Deep Vein Thrombosis (DVT), Pneumonia, Seizure Disorder, Thyroid Disorder Additional Past Medical History / Comment(s): hx difficulty swallowing and keeping solids down specifically meats/had egd w/ bx -positive for esophageal cancer-has had esophageal dilations w/2 stents since removed no chemo or radiation. pt stated pet scan spots on liver. last stroke mar 2011 (rt hand weaker), post stroke seizures last seizure December 2013, pneumonia,bronchitis, uti History of Any Multi-Drug Resistant Organisms: None Reported Past Surgical History: AICD, Bladder Surgery, Cholecystectomy, Hysterectomy Additional Past Surgical History / Comment(s): difibrillator/pacemaker 2016, left chest-Medtronic, stent in esaphagus december 2017, feeding tube ,egd/ dilations. stents(since removed) Past Anesthesia/Blood Transfusion Reactions: No Reported Reaction, Family History of Problems w/ Anesthesia Additional Past Anesthesia/Blood Transfusion Reaction / Comment(s): father had anesthesia for bladder bx and did not wake up after surgery at age 80 Type of Cardiac Device: AICD Device Placement Date:: 2016 Smoking Status: Never smoker - Past Family History father Family Medical History: Cancer Additional Family Medical History / Comment(s): bladder mother Family Medical History: Congestive Heart Failure (CHF), Deep Vein Thrombosis ( DVT) Medications and Allergies Home Medications Medication Instructions Recorded Confirmed Type Aspirin 81 mg PO DAILY 08/01/14 01/28/18 History Levothyroxine Sodium [Synthroid] 100 mcg PO QAM 08/01/14 01/28/18 History Sacubitril/Valsartan [Entresto 24 1 each PO BID 12/01/17 01/28/18 History mg-26 mg Tablet] Acetaminophen Tab [Tylenol Tab] 325 - 650 mg PO Q4H PRN 01/28/18 01/28/18 History Enoxaparin [Lovenox] 80 mg SQ Q12H 01/28/18 01/28/18 History Folic Acid 1 mg PO DAILY 01/28/18 01/28/18 History Furosemide [Lasix] 40 mg PO BID 01/28/18 01/28/18 History Gabapentin [Neurontin] 100 mg PO TID 01/28/18 01/28/18 History Hydrocodone/Acetaminophen [Hycet 5 - 10 ml PO Q4HR PRN 01/28/18 01/28/18 History 7.5 mg-325 mg/15 ml Soln] Omeprazole [PriLOSEC] 20 mg PO AC-BRKFST 01/28/18 01/28/18 History Thiamine [Vitamin B-1] 100 mg PO DAILY 01/28/18 01/28/18 History Allergies Allergy/AdvReac Type Severity Reaction Status Date / Time shellfish derived Allergy Vomiting Verified 01/28/18 15:56 Gcxjwde-Vcm-Con Reductase AdvReac MUSCLE Verified 01/28/18 15:56 Inhibitor PAINS Physical Exam Vitals: Vital Signs Temp Pulse Pulse Resp BP BP Pulse Ox 01/29/18 08:53 99 01/29/18 04:00 97.6 F 60 16 103/57 99 01/29/18 00:35 96.5 F L 60 16 100/53 96 01/28/18 20:30 97.4 F L 60 16 119/62 99 01/28/18 18:00 97.9 F 60 18 131/70 98 01/28/18 15:27 49 L 01/28/18 15:15 55 L 01/28/18 14:21 98.2 F 61 22 106/66 99 Intake and Output 01/28/18 01/29/18 01/29/18 22:59 06:59 14:59 Intake Total 10 20 Output Total 1200 Balance 10 20 -1200 Intake: IV 10 20 0.9% NS FLUSH 10 20 Tube Feeding 0 Output: Urine 1200 Other: Voiding Method Indwelling Catheter PHYSICAL EXAMINATION: HEENT: Head is atraumatic, normocephalic. Pupils equal, round. Neck is supple. There is no elevated jugular venous pressure. HEART EXAMINATION: Heart sounds regular, S1 and S2 with a systolic murmur. CHEST EXAMINATION: Lungs diminished air entry throughout with faint crackles at bilateral bases. No chest wall tenderness is noted on palpation or with deep breathing. ABDOMEN: Soft, diffuse tenderness. Bowel sounds are hypoactive. No organomegaly noted. EXTREMITIES: 1+ peripheral pulses with evidence of 1-2+ peripheral edema and no calf tenderness noted. NEUROLOGIC patient is awake, alert and oriented x3. . Results 01/29/18 05:18 01/29/18 05:18 Cardiac Enzymes 01/28/18 Range/Units 14:58 AST 58 H (14-36) U/L Coagulation 01/28/18 Range/Units 14:58 PT 13.2 H (9.0-12.0) sec APTT 36.6 H (22.0-30.0) sec CBC 01/28/18 01/29/18 Range/Units 14:58 05:18 WBC 8.1 5.2 (3.8-10.6) k/uL RBC 2.91 L 2.41 L (3.80-5.40) m/uL Hgb 8.7 L 7.4 L (11.4-16.0) gm/dL Hct 27.6 L 23.4 L (34.0-46.0) % Plt Count 307 249 (150-450) k/uL Comprehensive Metabolic Panel 01/28/18 01/29/18 Range/Units 14:58 05:18 Sodium 134 L 133 L (137-145) mmol/L Potassium 4.1 3.6 (3.5-5.1) mmol/L Chloride 91 L 93 L (98-107) mmol/L Carbon Dioxide 32 H 35 H (22-30) mmol/L BUN 24 H 22 H (7-17) mg/dL Creatinine 0.60 0.59 (0.52-1.04) mg/dL Glucose 145 H 137 H (74-99) mg/dL Calcium 8.3 L 8.1 L (8.4-10.2) mg/dL AST 58 H (14-36) U/L ALT 52 (9-52) U/L Alkaline Phosphatase 133 H (38-126) U/L Total Protein 7.0 (6.3-8.2) g/dL Albumin 3.0 L (3.5-5.0) g/dL Current Medications Generic Name Dose Route Start Last Admin Trade Name Freq PRN Reason Stop Dose Admin Hydrocodone Bitart/Acetaminophen 1 each 01/28/18 21:41 01/29/18 04:34 [place] 7.5-325 PO 1 each Q6H PRN Administration Moderate Pain Aspirin 81 mg 01/29/18 09:00 Aspirin PO DAILY [facility] Enoxaparin Sodium 70 mg 01/28/18 21:00 01/28/18 21:43 Lovenox SQ 70 mg Q12HR SHEA Administration Folic Acid 1 mg 01/29/18 12:00 Folic Acid PO DAILY@1200 SHEA Furosemide 40 mg 01/28/18 17:30 01/29/18 01:12 Lasix IV 40 mg Q8H SHEA Administration Gabapentin 100 mg 01/28/18 22:00 01/28/18 21:44 Neurontin PO 100 mg TID SHEA Administration Levothyroxine Sodium 100 mcg 01/29/18 07:00 01/29/18 06:36 Synthroid PO 100 mcg 0700 SHEA Administration Miscellaneous Information 1 each 01/28/18 17:59 Magnesium Per Protocol MISCELLANE DAILY PRN Per Protocol Protocol Miscellaneous Information 1 each 01/28/18 17:59 Potassium Per Protocol MISCELLANE DAILY PRN Per Protocol Protocol Nitroglycerin 1 inch 01/28/18 18:00 01/28/18 21:57 Nitro-Bid Oint TOPICAL Not Given QID SHEA Pantoprazole Sodium 40 mg 01/29/18 07:00 01/29/18 06:35 Protonix PO 40 mg 0700 SHEA Administration Sacubitril/Valsartan 1 each 01/28/18 21:00 01/28/18 21:44 Entresto 24 Mg-26 Mg Tablet PO 1 each BID SHEA Administration Sodium Chloride 10 ml 01/28/18 21:00 01/28/18 21:44 Saline Flush IV 10 ml BID SHEA Administration Thiamine HCl 100 mg 01/29/18 09:00 Vitamin B-1 PO DAILY SHEA Intake and Output 01/28/18 01/29/18 01/29/18 22:59 06:59 14:59 Intake Total 10 20 Output Total 1200 Balance 10 20 -1200 Intake: IV 10 20 0.9% NS FLUSH 10 20 Tube Feeding 0 Output: Urine 1200 Other: Voiding Method Indwelling Catheter 01/29/18 05:18 01/29/18 05:18 Assessment and Plan Assessment: #1 severe ischemic cardiomyopathy with last known ejection fraction of 35%, status post biventricular ICD #2 acute and chronic systolic congestive heart failure #3 chronic persistent atrial fibrillation and flutter, currently on Lovenox #4 history of CVA #5 history of seizure disorder #6 recent diagnosis of esophageal cancer with liver metastasis, status post esophageal stenting 2 that was unsuccessful #7 status post PEG tube placement #8 elevated amylase and lipase Plan: From 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 Continue Entresto. We will obtain records from [facility]. Review echocardiogram done yesterday. Discontinue aspirin due to anemia We will continue to follow the patient provide further recommendations accordingly. SHOPPING CENTRE MANAGER note has been reviewed, I agree with a documented findings and plan of care. Patient was seen and examined.
--- NOTE | 2018-01-29 10:17 | P.PN ---
Progress Note - Text this is an addendum to the dictated cardiology consultation. The patient has a history of severe nonischemic cardiomyopathy, chronic persistent atrial fibrillation, status post ICD biventricular implant who presents with symptoms of progressive dyspnea and peripheral edema. She was diagnosed recently with esophageal cancer and had a long admission at [facility] with esophageal stenting and subsequently a PEG tube placement.she has not started chemotherapy yet. She is not a candidate for surgery according to her daughter. According to her daughter who is a nurse she was told at [facility] that her echocardiogram showed a normalized systolic function which is quite surprising since cardiomyopathy was diagnosed in 2011. On her examination she has few rales bilaterally, she is in atrial fibrillation with a systolic murmur and has 2+ bilateral edema. The patient has been restarted on Entresto, she is receiving intravenous diuretics. We will try to obtain the records from [facility], review the results of the echo done yesterday. If her blood pressure is stable I will reinitiate treatment with her beta thomas. Depending on her progress further recommendations will be made. Thank you for this consult we will follow with you.
[2018-01-29] MEDS: NITROGLYCERIN OINT 1 INCH/GM PACKET TOPICAL SCH (10:29)
--- NOTE | 2018-01-29 10:47 | ECHOF ---
Referral Reason:Heart failure, edema MEASUREMENTS -------- HEIGHT: 152.4 cm WEIGHT: 68.0 kg BP: 103/57 IVSd: 1.0 cm (0.6 - 1.1) LVIDd: 4.8 cm (3.9 - 5.3) LVPWd: 1.5 cm (0.6 - 1.1) IVSs: 1.1 cm LVIDs: 4.1 cm LVPWs: 1.2 cm LA Diam: 4.8 cm (2.7 - 3.8) LAESV Index (A-L): 69.63 ml/m Ao Diam: 3.3 cm (2.0 - 3.7) AV Cusp: 1.7 cm (1.5 - 2.6) LA Diam: 4.7 cm (2.7 - 3.8) MV EXCURSION: 18.048 mm (> 18.000) MV EF SLOPE: 38 mm/s (70 - 150) EPSS: 1.3 cm MV E Armando: 0.60 m/s MV DecT: 160 ms MV A Amrando: 0.24 m/s MV E/A Ratio: 2.48 RAP: 5.00 mmHg RVSP: 38.56 mmHg FINDINGS -------- Paced rhythm. This was a technically good study. The left ventricular size is normal. There is borderline concentric left ventricular hypertrophy. Overall left ventricular systolic function is moderate-severely impaired with, an EF between 30 - 35 %. The right ventricle is normal in size. The left atrium is markedly dilated. LA is severely dilated >40 ml/m2 The right atrial size is normal. There is mild aortic regurgitation. Mild mitral annular calcification present. Moderate mitral regurgitation is present. Mild tricuspid regurgitation present. There is mild pulmonary hypertension. The right ventricular systolic pressure, as measured by Doppler, is 38.56mmHg. There is no pulmonic regurgitation present. The aortic root size is normal. There is no pericardial effusion. CONCLUSIONS -------- 1. The left ventricular size is normal. 2. There is borderline concentric left ventricular hypertrophy. 3. Overall left ventricular systolic function is moderate-severely impaired with, an EF between 30 - 35 %. 4. The right ventricle is normal in size. 5. The left atrium is markedly dilated. 6. LA is severely dilated >40 ml/m2 7. The right atrial size is normal. 8. There is mild aortic regurgitation. 9. Mild mitral annular calcification present. 10. Moderate mitral regurgitation is present. 11. Mild tricuspid regurgitation present. 12. There is mild pulmonary hypertension. 13. The right ventricular systolic pressure, as measured by Doppler, is 38.56mmHg. 14. There is no pulmonic regurgitation present. 15. The aortic root size is normal. 16. There is no pericardial effusion. TEXTILE MACHINERY SALES REPRESENTATIVE: Viridiana Braun RDCS
--- NOTE | 2018-01-29 10:52 | P.PN ---
Subjective Progress Note Date: 01/29/18 Principal diagnosis: Systolic heart failure exacerbation Patient is doing well today. She said that her shortness of breath is improved slightly. She is complaining of nonspecific pain mostly in her upper abdomen and chest area. Objective - Vital Signs Vital signs: Vital Signs Temp 97.5 F L 01/29/18 09:38 Pulse 60 01/29/18 09:38 Resp 16 01/29/18 09:38 BP 97/60 01/29/18 09:38 Pulse Ox 95 01/29/18 09:38 Intake & Output 01/28/18 01/29/18 01/29/18 18:59 06:59 18:59 Intake Total 30 Output Total 1200 Balance 30 -1200 Weight 68.039 kg 68.039 kg Intake: IV 30 0.9% NS FLUSH 30 Tube Feeding 0 Output: Urine 1200 Other: Voiding Method Indwelling Catheter Indwelling Catheter - Exam General: The patient is awake and alert, in no distress. She appears chronically ill Eye: there is normal conjunctiva bilaterally. Neck: The neck is supple, there is no JVD. Cardiovascular: Normal S1-S2, no S3-S4, no murmurs. Respiratory: Lungs clear to anterior chest auscultation bilaterally Gastrointestinal: Abdomen is soft, there is mild to moderate tenderness in the epigastric area Musculoskeletal: There is +1-2 pedal edema. Neurological:. Speech is normal. Skin: Skin is warm and dry - Labs CBC & Chem 7: 01/29/18 05:18 01/29/18 05:18 Labs: Abnormal Lab Results - Last 24 Hours (Table) 01/28/18 01/28/18 01/28/18 Range/Units 14:58 14:58 14:58 RBC 2.91 L (3.80-5.40) m/uL Hgb 8.7 L (11.4-16.0) gm/dL Hct 27.6 L (34.0-46.0) % RDW (11.5-15.5) % Lymphocytes # (1.0-4.8) k/uL PT 13.2 H (9.0-12.0) sec INR 1.4 H (<1.2) APTT 36.6 H (22.0-30.0) sec Sodium 134 L (137-145) mmol/L Chloride 91 L (98-107) mmol/L Carbon Dioxide 32 H (22-30) mmol/L BUN 24 H (7-17) mg/dL Glucose 145 H (74-99) mg/dL Calcium 8.3 L (8.4-10.2) mg/dL AST 58 H (14-36) U/L Alkaline Phosphatase 133 H (38-126) U/L Albumin 3.0 L (3.5-5.0) g/dL Amylase (30-110) U/L Lipase (23-300) U/L 01/28/18 01/29/18 01/29/18 Range/Units 14:58 05:18 05:18 RBC 2.41 L (3.80-5.40) m/uL Hgb 7.4 L (11.4-16.0) gm/dL Hct 23.4 L (34.0-46.0) % RDW 15.9 H (11.5-15.5) % Lymphocytes # 0.9 L (1.0-4.8) k/uL PT (9.0-12.0) sec INR (<1.2) APTT (22.0-30.0) sec Sodium 133 L (137-145) mmol/L Chloride 93 L (98-107) mmol/L Carbon Dioxide 35 H (22-30) mmol/L BUN 22 H (7-17) mg/dL Glucose 137 H (74-99) mg/dL Calcium 8.1 L (8.4-10.2) mg/dL AST (14-36) U/L Alkaline Phosphatase (38-126) U/L Albumin (3.5-5.0) g/dL Amylase 116 H (30-110) U/L Lipase 652 H (23-300) U/L 01/29/18 Range/Units 05:18 RBC (3.80-5.40) m/uL Hgb (11.4-16.0) gm/dL Hct (34.0-46.0) % RDW (11.5-15.5) % Lymphocytes # (1.0-4.8) k/uL PT (9.0-12.0) sec INR (<1.2) APTT (22.0-30.0) sec Sodium (137-145) mmol/L Chloride (98-107) mmol/L Carbon Dioxide (22-30) mmol/L BUN (7-17) mg/dL Glucose (74-99) mg/dL Calcium (8.4-10.2) mg/dL AST (14-36) U/L Alkaline Phosphatase (38-126) U/L Albumin (3.5-5.0) g/dL Amylase (30-110) U/L Lipase 307 H (23-300) U/L Assessment and Plan Assessment: 1. Acute systolic heart failure exacerbation, with elevated BNP and evidence of fluid overload both clinically and on x-ray. Started on IV Lasix 40 mg every 8 hours. I would switch her to 40 mg every 12 hours given hypotension. Echocardiogram showed EF of 35%. Cardiology consulted, appreciate recommendation . We will continue telemetry monitoring. Monitor kidney function and electrolytes closely. 2. Dyspnea, most likely secondary to underlying heart failure exacerbation. Computed tomography scan of the chest was negative for PE. 3. 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 Plan to follow up with her oncologist at [facility] as directed in February. Not on any chemotherapy as of now 4. Chronic atrial fibrillation: Rate controlled. 12-lead ECG in the emergency room showed atrial flutter. Cardiology following 5. History of chronic lower extremity DVT, on anticoagulation with Lovenox. We will continue 6. Constipation, started on bowel regimen. Computed tomography scan of the abdomen with no obstruction. 7. Status post PEG tube insertion secondary to underlying esophageal cancer. Continue tube feeding. Dietitian consulted. 8. Mild pancreatitis on presentation, lipase level improved. We will continue to monitor clinically. Start tube feeding Today, I reviewed her medication list and lab work results. I discussed her current condition with her daughter at bedside who is a RN. We will continue current regimen. Repeat lab work in the morning. Appreciate consultants recommendations.
[2018-01-29] MEDS ORDERED: FUROSEMIDE 10 MG/ML 4 ML VIAL IV SCH (11:00)
[2018-01-29] MEDS: SPIRONOLACTONE 25 MG TAB PO SCH (12:55)
--- NOTE | 2018-01-29 14:49 | P.CONS ---
History of Present Illness - Reason for Consult Consult date: 01/29/18 Requesting physician: Daina Ni - History of Present Illness 77-year-old female recently diagnosed with metastatic esophageal cancer, chronic atrial fibrillation, DVT, maintained on Lovenox, baby aspirin admitted with shortness of breath and CHF exacerbation lower extremity edema. Consult requested for history of known metastatic esophageal cancer. 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 Subsequently underwent esophageal stent 2 at [facility] the first stent migrated into the stomach the second stent was successful but caused increased pain and was removed a week later followed by subsequent PEG tube insertion. She was advised by her oncologist to optimize her nutritional status before chemotherapy could be started. CT chest abdomen and pelvis no evidence of pulmonary embolism, multifocal liver lesions having the appearance of metastatic neoplasm. Admission hemoglobin 8.7 presently 7.4. Platelet 249. INR 1.4. Total bilirubin 0.6. AST 50. ALT 52. AP 33. Lipase 652. Amylase 116. Denies hematemesis, hematochezia, or melena. Minimal abdominal discomfort. Review of Systems Constitutional: Denies fever, chills, sweats, weight gain, reported weight loss. Weakness. HEENT: Negative for migraines, blurred vision or loss, earaches, drainage, tinnitus, oral mucosal lesions, dysphagia, or odynophagia. CARDIAC: Negative for chest pain, arrhythmias, or palpitation. RESPIRATORY: Admitted shortness of breath, denies hemoptysis, cough, or sputum production. GI: See HPI for pertinent findings. : Negative for hematuria, urgency, frequency, polyuria, or dysuria. GYNc: Negative vaginal discharge. MUSCULOSKELETAL: Negative for muscle aches, swelling, arthritis, and arthralgias. NEUROLOGIC: Negative for stroke or TIA. ENDOCRINE: Negative for thyroid problems. SKIN: Negative for rash or itching. PSYCHIATRIC: Negative history for depression and anxiety Past Medical History Past Medical History: Atrial Fibrillation, Cancer, Heart Failure, CVA/TIA, Deep Vein Thrombosis (DVT), Pneumonia, Seizure Disorder, Thyroid Disorder Additional Past Medical History / Comment(s): hx difficulty swallowing and keeping solids down specifically meats/had egd w/ bx -positive for esophageal cancer-has had esophageal dilations w/2 stents since removed no chemo or radiation. pt stated pet scan spots on liver. last stroke mar 2011 (rt hand weaker), post stroke seizures last seizure December 2013, pneumonia,bronchitis, uti History of Any Multi-Drug Resistant Organisms: None Reported Past Surgical History: AICD, Bladder Surgery, Cholecystectomy, Hysterectomy Additional Past Surgical History / Comment(s): difibrillator/pacemaker 2016, left chest-Medtronic, stent in esaphagus december 2017, feeding tube ,egd/ dilations. stents(since removed) Past Anesthesia/Blood Transfusion Reactions: No Reported Reaction, Family History of Problems w/ Anesthesia Additional Past Anesthesia/Blood Transfusion Reaction / Comm: father had anesthesia for bladder bx and did not wake up after surgery at age 80 Type of Cardiac Device: AICD Device Placement Date:: 2016 Smoking Status: Never smoker - Past Family History father Family Medical History: Cancer Additional Family Medical History / Comment(s): bladder mother Family Medical History: Congestive Heart Failure (CHF), Deep Vein Thrombosis ( DVT) Medications and Allergies Home Medications Medication Instructions Recorded Confirmed Type Aspirin 81 mg PO DAILY 08/01/14 01/28/18 History Levothyroxine Sodium [Synthroid] 100 mcg PO QAM 08/01/14 01/28/18 History Sacubitril/Valsartan [Entresto 24 1 each PO BID 12/01/17 01/28/18 History mg-26 mg Tablet] Acetaminophen Tab [Tylenol Tab] 325 - 650 mg PO Q4H PRN 01/28/18 01/28/18 History Enoxaparin [Lovenox] 80 mg SQ Q12H 01/28/18 01/28/18 History Folic Acid 1 mg PO DAILY 01/28/18 01/28/18 History Furosemide [Lasix] 40 mg PO BID 01/28/18 01/28/18 History Gabapentin [Neurontin] 100 mg PO TID 01/28/18 01/28/18 History Hydrocodone/Acetaminophen [Hycet 5 - 10 ml PO Q4HR PRN 01/28/18 01/28/18 History 7.5 mg-325 mg/15 ml Soln] Omeprazole [PriLOSEC] 20 mg PO AC-BRKFST 01/28/18 01/28/18 History Thiamine [Vitamin B-1] 100 mg PO DAILY 01/28/18 01/28/18 History Allergies Allergy/AdvReac Type Severity Reaction Status Date / Time shellfish derived Allergy Vomiting Verified 01/28/18 15:56 Ozaivqw-Evf-Brq Reductase AdvReac MUSCLE Verified 01/28/18 15:56 Inhibitor PAINS Physical Exam Vitals: Vital Signs Temp Pulse Pulse Resp BP BP Pulse Ox 01/29/18 08:53 99 01/29/18 08:00 16 01/29/18 04:00 97.6 F 60 16 103/57 99 01/29/18 00:35 96.5 F L 60 16 100/53 96 01/28/18 20:30 97.4 F L 60 16 119/62 99 01/28/18 18:00 97.9 F 60 18 131/70 98 01/28/18 15:27 49 L 01/28/18 15:15 55 L 01/28/18 14:21 98.2 F 61 22 106/66 99 Intake and Output 01/28/18 01/29/18 01/29/18 22:59 06:59 14:59 Intake Total 10 20 Output Total 1200 Balance 10 20 -1200 Intake: IV 10 20 0.9% NS FLUSH 10 20 Tube Feeding 0 Output: Urine 1200 Other: Voiding Method Indwelling Catheter Indwelling Catheter General appearance: The patient is alert, oriented, in no acute distress. HET: Head is normocephalic and atraumatic. Pupils are equal and reactive. Oropharynx is clear without lesions. Neck: Supple without lymphadenopathy. Trachea midline. Heart: S1 S2. Lungs: No crackles or wheezes are heard. Abdomen: Soft, nontender, nondistended with bowel sounds. PEG tube intact without erythema or drainage. No peritoneal signs. No palpable organomegaly or masses. Extremities: +1 bilateral lower extremity edema. Neurological: No focal deficits. Strength and sensation are grossly intact. Results CBC & Chem 7: 01/29/18 05:18 01/29/18 05:18 Labs: Abnormal Lab Results - Last 24 Hours (Table) 01/28/18 01/28/18 01/28/18 Range/Units 14:58 14:58 14:58 RBC 2.91 L (3.80-5.40) m/uL Hgb 8.7 L (11.4-16.0) gm/dL Hct 27.6 L (34.0-46.0) % RDW (11.5-15.5) % Lymphocytes # (1.0-4.8) k/uL PT 13.2 H (9.0-12.0) sec INR 1.4 H (<1.2) APTT 36.6 H (22.0-30.0) sec Sodium 134 L (137-145) mmol/L Chloride 91 L (98-107) mmol/L Carbon Dioxide 32 H (22-30) mmol/L BUN 24 H (7-17) mg/dL Glucose 145 H (74-99) mg/dL Calcium 8.3 L (8.4-10.2) mg/dL AST 58 H (14-36) U/L Alkaline Phosphatase 133 H (38-126) U/L Albumin 3.0 L (3.5-5.0) g/dL Amylase (30-110) U/L Lipase (23-300) U/L 01/28/18 01/29/18 01/29/18 Range/Units 14:58 05:18 05:18 RBC 2.41 L (3.80-5.40) m/uL Hgb 7.4 L (11.4-16.0) gm/dL Hct 23.4 L (34.0-46.0) % RDW 15.9 H (11.5-15.5) % Lymphocytes # 0.9 L (1.0-4.8) k/uL PT (9.0-12.0) sec INR (<1.2) APTT (22.0-30.0) sec Sodium 133 L (137-145) mmol/L Chloride 93 L (98-107) mmol/L Carbon Dioxide 35 H (22-30) mmol/L BUN 22 H (7-17) mg/dL Glucose 137 H (74-99) mg/dL Calcium 8.1 L (8.4-10.2) mg/dL AST (14-36) U/L Alkaline Phosphatase (38-126) U/L Albumin (3.5-5.0) g/dL Amylase 116 H (30-110) U/L Lipase 652 H (23-300) U/L CT scan - abdomen: report reviewed (Dr. 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 Current Visit: Yes Status: Acute Code(s): C78.89 - SECONDARY MALIGNANT NEOPLASM OF OTHER DIGESTIVE ORGANS SNOMED Code(s): 754401569 (2) Pancreatitis Current Visit: Yes Status: Acute Code(s): K85.90 - ACUTE PANCREATITIS WITHOUT NECROSIS OR INFECTION, UNSP SNOMED Code(s): 34001153 (3) Systolic heart failure Current Visit: Yes Status: Acute Code(s): I50.20 - UNSPECIFIED SYSTOLIC ( CONGESTIVE) HEART FAILURE SNOMED Code(s): 686217052 (4) Chronic atrial fibrillation Current Visit: Yes Status: Acute Code(s): I48.2 - CHRONIC ATRIAL FIBRILLATION SNOMED Code(s): 557961207 (5) H/O deep venous thrombosis Current Visit: Yes Status: Resolved Code(s): Z86.718 - PERSONAL HISTORY OF OTHER VENOUS THROMBOSIS AND EMBOLISM SNOMED Code(s): 393207593 Plan: 1. Continue supportive measures and medications. Tube feeds. 2. Protonix 40 mg daily. Daily chemistries. Prealbumin. Dietary consult. We' ll follow with you. Thank you for this kind referral and the opportunity to participate in the care of your patient. This consultation was discussed with Dr. Lizarraga. The impression and plan of care have been directed as dictated.
[2018-01-29] MEDS ORDERED: levETIRAcetam IV 1,000 MG in SALINE 1 100ML.BAG IVPB STA (16:59)
[2018-01-29] MEDS ORDERED: ASPIRIN 325 MG TAB PO SCH (17:24)
[2018-01-29] MEDS: MORPHINE SULFATE 2 MG/ML SYRINGE IVP PRN (19:10)
[2018-01-29] MEDS: levETIRAcetam ORAL SOLN 500 MG/5 ML CUP PEG/G-TUBE SCH (21:15)
--- NOTE | 2018-01-29 22:34 | P.CNNES ---
History of Present Illness Consult date: 01/29/18 Requesting physician: Brian Grijalva Reason for Consult: Seizure Chief complaint: Seizure History of Present Illness: neurology is consulting on a 77 year old female for seizure. The patient was originally brought to the ED for shortness of breath and pain. The symptoms started on 01/27 and she presented on 01/28/18. Patient has a history of seizure, lower extremity blood clots, anticoagulation use. Patient has a history of esophageal cancer diagnoses 2-3 months ago. Patient has been taking Keppra 1, 000 mg, b.i.d. for several years but recently, there was confusion about her medication and the medication was stopped for approximately 3-5 days prior to presentation. Patient had a seizure at home once her medication was stopped. Patient is known to our practice and is treated in the office by consulting provider. Patient has a long stable history of seizure control on her medication regimen noted above. Patient has an EEG ordered. Patient and family are declining brain imaging given her cancer status and risk benefit ratio to additional imaging. Patient was alert and oriented x3, in no acute distress, resting and her daughter was present. Review of Systems All systems not noted in HPI are negative Past Medical History Past Medical History: Atrial Fibrillation, Cancer, Heart Failure, CVA/TIA, Deep Vein Thrombosis (DVT), Pneumonia, Seizure Disorder, Thyroid Disorder Additional Past Medical History / Comment(s): hx difficulty swallowing and keeping solids down specifically meats/had egd w/ bx -positive for esophageal cancer-has had esophageal dilations w/2 stents since removed no chemo or radiation. pt stated pet scan spots on liver. last stroke mar 2011 (rt hand weaker), post stroke seizures last seizure December 2013, pneumonia,bronchitis, uti History of Any Multi-Drug Resistant Organisms: None Reported Past Surgical History: AICD, Bladder Surgery, Cholecystectomy, Hysterectomy Additional Past Surgical History / Comment(s): difibrillator/pacemaker 2016, left chest-[employer]tronic, stent in esaphagus december 2017, feeding tube ,egd/ dilations. stents(since removed) Past Anesthesia/Blood Transfusion Reactions: No Reported Reaction, Family History of Problems w/ Anesthesia Additional Past Anesthesia/Blood Transfusion Reaction / Comment(s): father had anesthesia for bladder bx and did not wake up after surgery at age 81 Type of Cardiac Device: AICD Device Placement Date:: 2016 Smoking Status: Never smoker - Past Family History father Family Medical History: Cancer Additional Family Medical History / Comment(s): bladder mother Family Medical History: Congestive Heart Failure (CHF), Deep Vein Thrombosis ( DVT) Medications and Allergies Home Medications Medication Instructions Recorded Confirmed Type Aspirin 81 mg PO DAILY 08/01/14 01/28/18 History Levothyroxine Sodium [Synthroid] 100 mcg PO QAM 08/01/14 01/28/18 History Sacubitril/Valsartan [Entresto 24 1 each PO BID 12/01/17 01/28/18 History mg-26 mg Tablet] Acetaminophen Tab [Tylenol Tab] 325 - 650 mg PO Q4H PRN 01/28/18 01/28/18 History Enoxaparin [Lovenox] 80 mg SQ Q12H 01/28/18 01/28/18 History Folic Acid 1 mg PO DAILY 01/28/18 01/28/18 History Furosemide [Lasix] 40 mg PO BID 01/28/18 01/28/18 History Gabapentin [Neurontin] 100 mg PO TID 01/28/18 01/28/18 History Hydrocodone/Acetaminophen [Hycet 5 - 10 ml PO Q4HR PRN 01/28/18 01/28/18 History 7.5 mg-325 mg/15 ml Soln] Omeprazole [PriLOSEC] 20 mg PO AC-BRKFST 01/28/18 01/28/18 History Thiamine [Vitamin B-1] 100 mg PO DAILY 01/28/18 01/28/18 History Allergies Allergy/AdvReac Type Severity Reaction Status Date / Time shellfish derived Allergy Vomiting Verified 01/28/18 15:56 Wzxoqmr-Hea-Udp Reductase AdvReac MUSCLE Verified 01/28/18 15:56 Inhibitor PAINS Physical Examination - Vital Signs Vital Signs: Vital Signs Temp Pulse Resp BP Pulse Ox 01/29/18 20:00 98.8 F 62 17 107/54 99 01/29/18 16:00 96.9 F L 58 L 16 84/60 95 01/29/18 12:00 98 F 60 16 110/58 96 01/29/18 09:38 97.5 F L 60 16 97/60 95 01/29/18 08:53 99 01/29/18 08:00 16 01/29/18 04:00 97.6 F 60 16 103/57 99 01/29/18 00:35 96.5 F L 60 16 100/53 96 Intake and Output 01/29/18 01/29/18 01/29/18 06:59 14:59 22:59 Intake Total 20 0 140 Output Total 1200 725 Balance 20 -1200 -585 Intake: IV 20 0.9% NS FLUSH 20 Tube Feeding 0 0 140 Output: Urine 1200 725 Other: Voiding Method Indwelling Catheter Indwelling Catheter Indwelling Catheter Weight 68.039 kg General appearance: Alert & oriented x3, no apparent distress. Head: Atraumatic, normocephalic, normal inspection Eyes: Well appearance, PERRLA, EOMI. Ear, nose and throat: Normal exam, mucous membranes moist Neck: Normal inspection, absent tenderness, lymphadenopathy. Respiratory: No increased work of breathing Cardiovascular: Regular rate, rhythm GI/abdominal: no guarding Extremities: fulll range of motion, normal capillary refill Neurological: cranial nerves II through XII intact no lateralizing weakness no seizure activity noted on physical exam no pronator drift and no nystagmus. strength equal and symmetrical in all 4 extremities Sensation: Normal to light touch Psychological: Mood and affect appropriate for setting. Results - Laboratory Findings CBC and BMP: 01/29/18 05:18 01/29/18 05:18 Abnormal Lab Findings: Abnormal Labs 01/28/18 01/28/18 01/28/18 14:58 14:58 14:58 RBC 2.91 L Hgb 8.7 L Hct 27.6 L RDW Lymphocytes # PT 13.2 H INR 1.4 H APTT 36.6 H Sodium 134 L Chloride 91 L Carbon Dioxide 32 H BUN 24 H Glucose 145 H Calcium 8.3 L AST 58 H Alkaline Phosphatase 133 H Albumin 3.0 L Amylase Lipase 01/28/18 01/29/18 01/29/18 14:58 05:18 05:18 RBC 2.41 L Hgb 7.4 L Hct 23.4 L RDW 15.9 H Lymphocytes # 0.9 L PT INR APTT Sodium 133 L Chloride 93 L Carbon Dioxide 35 H BUN 22 H Glucose 137 H Calcium 8.1 L AST Alkaline Phosphatase Albumin Amylase 116 H Lipase 652 H 01/29/18 05:18 RBC Hgb Hct RDW Lymphocytes # PT INR APTT Sodium Chloride Carbon Dioxide BUN Glucose Calcium AST Alkaline Phosphatase Albumin Amylase Lipase 307 H - Diagnostic Findings CT scan - chest: report reviewed Additional findings: EEG ordered Assessment and Plan (1) Seizure Narrative/Plan: Patient does have known seizure disorder. Patient is actively treating in our practice for disorder. Patient routinely utilizes Keppra 1000 mg twice a day. Reestablish Keppra at 1000 mg IV loading dose Continue Keppra 1000 mgtwice a day as maintenance dose Repeat Keppra level on 01/31/18 EEG pending Advanced brain imaging declined by patient and family to rule out any other underlying etiology. Risks, benefits and alternatives of declining imaging were discussed with family. Family excepts risks. Continue seizure precautions per protocol. continue neuro checks as implemented. Current Visit: Yes Status: Acute Code(s): R56.9 - UNSPECIFIED CONVULSIONS SNOMED Code(s): 30850060 (2) Altered mental status Narrative/Plan: see #1 above. 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 Current Visit: Yes Status: Acute Code(s): C78.89 - SECONDARY MALIGNANT NEOPLASM OF OTHER DIGESTIVE ORGANS SNOMED Code(s): 179952432 (4) Systolic heart failure Narrative/Plan: defer to primary team and cardiology. Current Visit: Yes Status: Acute Code(s): I50.20 - UNSPECIFIED SYSTOLIC ( CONGESTIVE) HEART FAILURE SNOMED Code(s): 835509398 Plan: STATUS: Neurology will continue to follow provide updates as needed or warranted. Contact our office with any questions I have discussed the plan of care with the physician prior to implementation and he agrees with the plan as implemented.
[2018-01-29] MEDS: HYDROcodone/APAP 15 ML SOLUTION PO PRN (23:09)
[2018-01-30 01:17] LABS: Anion Gap 5 mmol/L; Blood Urea Nitrogen 25 mg/dL (7-17); Calcium 8.1 mg/dL (8.4-10.2); Carbon Dioxide 37 mmol/L (22-30); Chloride 91 mmol/L (98-107); Glucose 132 mg/dL (74-99); Magnesium 1.9 mg/dL (1.6-2.3); Potassium 3.3 mmol/L (3.5-5.1); Sodium 133 mmol/L (137-145)
[2018-01-30 02:07] LABS: Glucose,Whole Blood 128 mg/dL (75-99)
[2018-01-30] MEDS: POTASSIUM CHLORIDE 10 MEQ in WATER FOR INJECTION 1 100ML.BAG IVPB SCH ×2 (02:07→03:17)
[2018-01-30] MEDS: MORPHINE SULFATE 2 MG/ML SYRINGE IVP PRN (03:08)
[2018-01-30 04:14] LABS: Basophils % (A) 0 %; Eosinophils % (A) 0 %; HCT 24.9 % (34.0-46.0); HGB 7.3 gm/dL (11.4-16.0); Hypochromasia Marked; Lymphocytes # (A) 1.5 k/uL (1.0-4.8); Lymphocytes % (A) 17 %; MCH 27.7 pg (25.0-35.0); MCHC 29.1 g/dL (31.0-37.0); MCV 95.2 fL (80.0-100.0); Monocytes # (A) 0.5 k/uL (0-1.0); Monocytes % (A) 6 %; Neutrophils # (A) 6.4 k/uL (1.3-7.7); Neutrophils % (A) 75 %; Platelet Count 270 k/uL (150-450); RBC 2.62 m/uL (3.80-5.40); RDW 14.9 % (11.5-15.5); WBC 8.6 k/uL (3.8-10.6)
[2018-01-30] MEDS: HYDROcodone/APAP 15 ML SOLUTION PO PRN ×3 (05:46→18:18)
[2018-01-30 06:07] LABS: Glucose,Whole Blood 128 mg/dL (75-99)
[2018-01-30] MEDS: LEVOTHYROXINE 100 MCG TAB PO SCH (06:17)
[2018-01-30] MEDS: PANTOPRAZOLE 40 MG TABLET PO SCH (06:17)
[2018-01-30 06:56] LABS: Anion Gap 2 mmol/L; Blood Urea Nitrogen 25 mg/dL (7-17); Calcium 8.2 mg/dL (8.4-10.2); Carbon Dioxide 38 mmol/L (22-30); Chloride 92 mmol/L (98-107); Glucose 97 mg/dL (74-99); Magnesium 1.9 mg/dL (1.6-2.3); Potassium 3.8 mmol/L (3.5-5.1); Sodium 132 mmol/L (137-145)
[2018-01-30] MEDS: ENOXAPARIN 80 MG/0.8 ML SYRINGE SQ SCH (09:15)
[2018-01-30] MEDS: THIAMINE 100 MG TAB PO SCH (09:18)
[2018-01-30] MEDS: FUROSEMIDE 10 MG/ML 4 ML VIAL IV SCH ×2 (09:18→20:35)
[2018-01-30] MEDS: SPIRONOLACTONE 25 MG TAB PO SCH (09:18)
[2018-01-30] MEDS: levETIRAcetam ORAL SOLN 500 MG/5 ML CUP PEG/G-TUBE SCH ×2 (09:18→20:35)
[2018-01-30] MEDS: FOLIC ACID 1 MG TAB PO SCH (09:18)
[2018-01-30] MEDS: GABAPENTIN 100 MG CAP PO SCH ×3 (09:18→20:35)
[2018-01-30] MEDS: SACUBITRIL/VALSARTAN 24 MG-26 MG TABLET PO SCH ×2 (09:18→20:35)
--- NOTE | 2018-01-30 10:00 | P.GSCN ---
History of Present Illness Consult date: 01/30/18 Reason for Consult: Esophageal cancer History of present illness: Patient with recent diagnosis of esophageal cancer. She is to begin FOLFOX treatment in the near future. Requesting Port-A-Cath. Lovenox was placed on hold because of some gastric bleeding. Being followed by GI for that. Patient has poor IV access. Patient apparently is a nonoperative candidate. Review of Systems The patient denies any acute changes in vision or hearing, no dysphagia or odynophagia, no chest pain or shortness of breath, no dysuria or hematuria, no headache, no runny nose, no melena, no unexplained weight loss Past Medical History Past Medical History: Atrial Fibrillation, Cancer, Heart Failure, CVA/TIA, Deep Vein Thrombosis (DVT), Pneumonia, Seizure Disorder, Thyroid Disorder Additional Past Medical History / Comment(s): hx difficulty swallowing and keeping solids down specifically meats/had egd w/ bx -positive for esophageal cancer-has had esophageal dilations w/2 stents since removed no chemo or radiation. pt stated pet scan spots on liver. last stroke mar 2011 (rt hand weaker), post stroke seizures last seizure December 2013, pneumonia,bronchitis, uti History of Any Multi-Drug Resistant Organisms: None Reported Past Surgical History: AICD, Bladder Surgery, Cholecystectomy, Hysterectomy Additional Past Surgical History / Comment(s): difibrillator/pacemaker 2016, left chest-Medtronic, stent in esaphagus december 2017, feeding tube ,egd/ dilations. stents(since removed) Past Anesthesia/Blood Transfusion Reactions: No Reported Reaction, Family History of Problems w/ Anesthesia Additional Past Anesthesia/Blood Transfusion Reaction / Comm: father had anesthesia for bladder bx and did not wake up after surgery at age 80 Type of Cardiac Device: AICD Device Placement Date:: 2016 Smoking Status: Never smoker - Past Family History father Family Medical History: Cancer Additional Family Medical History / Comment(s): bladder mother Family Medical History: Congestive Heart Failure (CHF), Deep Vein Thrombosis ( DVT) Medications and Allergies Home Medications Medication Instructions Recorded Confirmed Type Aspirin 81 mg PO DAILY 08/01/14 01/28/18 History Levothyroxine Sodium [Synthroid] 100 mcg PO QAM 08/01/14 01/28/18 History Sacubitril/Valsartan [Entresto 24 1 each PO BID 12/01/17 01/28/18 History mg-26 mg Tablet] Acetaminophen Tab [Tylenol Tab] 325 - 650 mg PO Q4H PRN 01/28/18 01/28/18 History Enoxaparin [Lovenox] 80 mg SQ Q12H 01/28/18 01/28/18 History Folic Acid 1 mg PO DAILY 01/28/18 01/28/18 History Furosemide [Lasix] 40 mg PO BID 01/28/18 01/28/18 History Gabapentin [Neurontin] 100 mg PO TID 01/28/18 01/28/18 History Hydrocodone/Acetaminophen [Hycet 5 - 10 ml PO Q4HR PRN 01/28/18 01/28/18 History 7.5 mg-325 mg/15 ml Soln] Omeprazole [PriLOSEC] 20 mg PO AC-BRKFST 01/28/18 01/28/18 History Thiamine [Vitamin B-1] 100 mg PO DAILY 01/28/18 01/28/18 History Allergies Allergy/AdvReac Type Severity Reaction Status Date / Time shellfish derived Allergy Vomiting Verified 01/28/18 15:56 Ynmbyby-Fio-Rnw Reductase AdvReac MUSCLE Verified 01/28/18 15:56 Inhibitor PAINS Surgical - Exam Vital Signs Temp Pulse Resp BP Pulse Ox 98.2 F 61 22 106/66 99 01/28/18 14:21 01/28/18 14:21 01/28/18 14:21 01/28/18 14:21 01/28/18 14:21 Physical exam: General: Well-developed, well-nourished HEENT: Normocephalic, sclerae nonicteric Abdomen: Nontender, nondistended, gastric tube noted Extremities: No edema Neuro: Alert and oriented Results - Labs 01/30/18 03:57 01/30/18 05:56 Abnormal Lab Results - Last 24 Hours (Table) 01/29/18 01/30/18 01/30/18 Range/Units 05:18 00:26 01:47 RBC (3.80-5.40) m/uL Hgb (11.4-16.0) gm/dL Hct (34.0-46.0) % MCHC (31.0-37.0) g/dL Sodium 133 L (137-145) mmol/L Potassium 3.3 L (3.5-5.1) mmol/L Chloride 91 L (98-107) mmol/L Carbon Dioxide 37 H (22-30) mmol/L BUN 25 H (7-17) mg/dL Glucose 132 H (74-99) mg/dL POC Glucose (mg/dL) 128 H (75-99) mg/dL Calcium 8.1 L (8.4-10.2) mg/dL Lipase 307 H (23-300) U/L 01/30/18 01/30/18 01/30/18 Range/Units 03:57 05:56 06:05 RBC 2.62 L (3.80-5.40) m/uL Hgb 7.3 L (11.4-16.0) gm/dL Hct 24.9 L (34.0-46.0) % MCHC 29.1 L (31.0-37.0) g/dL Sodium 132 L (137-145) mmol/L Potassium (3.5-5.1) mmol/L Chloride 92 L (98-107) mmol/L Carbon Dioxide 38 H (22-30) mmol/L BUN 25 H (7-17) mg/dL Glucose (74-99) mg/dL POC Glucose (mg/dL) 128 H (75-99) mg/dL Calcium 8.2 L (8.4-10.2) mg/dL Lipase (23-300) U/L Diabetes panel 01/30/18 01/30/18 Range/Units 00:26 05:56 Sodium 133 L 132 L (137-145) mmol/L Potassium 3.3 L 3.8 (3.5-5.1) mmol/L Chloride 91 L 92 L (98-107) mmol/L Carbon Dioxide 37 H 38 H (22-30) mmol/L BUN 25 H 25 H (7-17) mg/dL Creatinine 0.60 0.60 (0.52-1.04) mg/dL Glucose 132 H 97 (74-99) mg/dL Calcium 8.1 L 8.2 L (8.4-10.2) mg/dL Calcium panel 01/30/18 01/30/18 Range/Units 00:26 05:56 Calcium 8.1 L 8.2 L (8.4-10.2) mg/dL Pituitary panel 01/30/18 01/30/18 Range/Units 00:26 05:56 Sodium 133 L 132 L (137-145) mmol/L Potassium 3.3 L 3.8 (3.5-5.1) mmol/L Chloride 91 L 92 L (98-107) mmol/L Carbon Dioxide 37 H 38 H (22-30) mmol/L BUN 25 H 25 H (7-17) mg/dL Creatinine 0.60 0.60 (0.52-1.04) mg/dL Glucose 132 H 97 (74-99) mg/dL Calcium 8.1 L 8.2 L (8.4-10.2) mg/dL Adrenal panel 01/30/18 01/30/18 Range/Units 00:26 05:56 Sodium 133 L 132 L (137-145) mmol/L Potassium 3.3 L 3.8 (3.5-5.1) mmol/L Chloride 91 L 92 L (98-107) mmol/L Carbon Dioxide 37 H 38 H (22-30) mmol/L BUN 25 H 25 H (7-17) mg/dL Creatinine 0.60 0.60 (0.52-1.04) mg/dL Glucose 132 H 97 (74-99) mg/dL Calcium 8.1 L 8.2 L (8.4-10.2) mg/dL Assessment and Plan (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 Risks of bleeding, infection, DVT, pneumothorax, catheter malfunction, anesthesia related complications were discussed. The patient understands and wishes to proceed. Current Visit: Yes Status: Acute Code(s): C78.89 - SECONDARY MALIGNANT NEOPLASM OF OTHER DIGESTIVE ORGANS SNOMED Code(s): 840970339
--- NOTE | 2018-01-30 10:25 | P.PN ---
Subjective Progress Note Date: 01/30/18 Principal diagnosis: Systolic heart failure exacerbation Patient is awake and alert today. She was found to have some blood in the PEG tube as well as blood clots. Her hemoglobin globin drop slightly compared to yesterday. No evidence of severe bleed. She is currently nothing by mouth and tube feeding was discontinued Objective - Vital Signs Vital signs: Vital Signs Temp 97 F L 01/30/18 09:36 Pulse 60 01/30/18 09:36 Resp 20 01/30/18 09:36 BP 102/58 01/30/18 09:36 Pulse Ox 97 01/30/18 03:51 Intake & Output 01/29/18 01/30/18 01/30/18 18:59 06:59 18:59 Intake Total 120 520 0 Output Total 1924 1700 Balance -1805 -1180 0 Weight 68.039 kg Intake: Tube Feeding 120 440 0 Other 80 Output: Urine 19240 Other: Voiding Method Indwelling Catheter Indwelling Catheter Indwelling Catheter - Exam General: The patient is awake and alert, in no distress. She appears chronically ill Eye: there is normal conjunctiva bilaterally. Neck: The neck is supple, there is no JVD. Cardiovascular: Normal S1-S2, no S3-S4, no murmurs. Respiratory: Lungs clear to anterior chest auscultation bilaterally Gastrointestinal: Abdomen is soft, there is mild to moderate tenderness in the epigastric area Musculoskeletal: There is +1-2 pedal edema. Neurological:. Speech is normal. Skin: Skin is warm and dry - Labs CBC & Chem 7: 01/30/18 03:57 01/30/18 05:56 Labs: Abnormal Lab Results - Last 24 Hours (Table) 01/30/18 01/30/18 01/30/18 Range/Units 00:26 01:47 03:57 RBC 2.62 L (3.80-5.40) m/uL Hgb 7.3 L (11.4-16.0) gm/dL Hct 24.9 L (34.0-46.0) % MCHC 29.1 L (31.0-37.0) g/dL Sodium 133 L (137-145) mmol/L Potassium 3.3 L (3.5-5.1) mmol/L Chloride 91 L (98-107) mmol/L Carbon Dioxide 37 H (22-30) mmol/L BUN 25 H (7-17) mg/dL Glucose 132 H (74-99) mg/dL POC Glucose (mg/dL) 128 H (75-99) mg/dL Calcium 8.1 L (8.4-10.2) mg/dL 01/30/18 01/30/18 Range/Units 05:56 06:05 RBC (3.80-5.40) m/uL Hgb (11.4-16.0) gm/dL Hct (34.0-46.0) % MCHC (31.0-37.0) g/dL Sodium 132 L (137-145) mmol/L Potassium (3.5-5.1) mmol/L Chloride 92 L (98-107) mmol/L Carbon Dioxide 38 H (22-30) mmol/L BUN 25 H (7-17) mg/dL Glucose (74-99) mg/dL POC Glucose (mg/dL) 128 H (75-99) mg/dL Calcium 8.2 L (8.4-10.2) mg/dL Assessment and Plan Assessment: 1. Acute systolic heart failure exacerbation, with elevated BNP and evidence of fluid overload both clinically and on x-ray. On IV Lasix 40 mg every 12 hours. Echocardiogram showed EF of 35%. Cardiology consulted, appreciate recommendation . We will continue telemetry monitoring. Monitor kidney function and electrolytes closely. 2. Dyspnea, most likely secondary to underlying heart failure exacerbation. Computed tomography scan of the chest was negative for PE. 3. 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 Plan to switch care locally to Dr. Garrett with oncology. Plan for chest port placement possibly tomorrow. Gen. surgery consulted. Plan to start chemo when patient gets stronger. 4. Chronic atrial fibrillation: Rate controlled. 12-lead ECG in the emergency room showed atrial flutter. Cardiology following 5. History of chronic lower extremity DVT, on anticoagulation with Lovenox. Currently on hold secondary to GI bleed 6. Constipation, started on bowel regimen. Computed tomography scan of the abdomen with no obstruction. 7. Status post PEG tube insertion secondary to underlying esophageal cancer. Dietitian consulted. 8. Mild pancreatitis on presentation, lipase level improved. We will continue to monitor clinically. Start tube feeding 9. Upper GI bleed: With small amount of blood and blood clots noted in the PEG tube. Probably related to tumor bleeds from her esophageal cancer. Seen and evaluated by GI. No endoscopy at this time. Transfuse as needed for hemoglobin below 7. Hold tube feeds for now. Today, I reviewed her medication list and lab work results. I discussed her current condition with her daughter at bedside who is a RN. I answered all of her questions to her satisfaction. We will continue current regimen. Repeat lab work in the morning. Appreciate consultants recommendations. Plan for today: -Hold tube feeds and continue to monitor for worsening upper GI bleed through PEG tube -Discontinue Lovenox for now -Continue supportive care -Chest port placement scheduled tomorrow
--- NOTE | 2018-01-30 10:47 | PN ---
PROGRESS NOTE DATE OF SERVICE: 01/30/2018 The patient is a 77 -year-old female who was recently diagnosed with metastatic esophageal adenocarcinoma in November 2017. She underwent an upper endoscopy by Dr. Hedrick and was noted to have a distal esophageal stricture with infiltrative type adenocarcinoma and subsequently CT showed liver metastasis. She was therefore referred to [facility] where she had esophageal wall flex stent placed. She did not tolerate it and the stent was removed and she had an EGD with PEG tube placement about 2 weeks ago. She was admitted to the hospital yesterday and she was having some bleeding through the PEG tube. She had approximately 100 mL of clots with the old blood that was aspirated from the PEG tube yesterday. She is presently on tube feeds, tolerating reasonably well. She denies any nausea, vomiting. Reports no abdominal pain. PHYSICAL EXAMINATION: She appears comfortable with no apparent distress. VITAL SIGNS: Stable. Blood pressure is 90/50, pulse is 60, temperature 97. HEENT examination unremarkable. Conjunctivae pink. Sclerae anicteric. The oral cavity no lesions. Neck no jugular venous distention or lymph node enlargement. Chest was clear to auscultation. HEART: Regular rate and rhythm. ABDOMEN: Soft. Bowel sounds positive. The PEG tube had some fresh blood around but the mucosa appeared normal. The rest of the abdomen appeared normal. Extremities: No pedal edema. Skin no rashes. NEUROLOGIC: Alert and oriented x3. No focal deficits. LABS: Done yesterday hemoglobin is 8.7. Today it is 7.3. INR is 1.4 yesterday. Rest of the labs are within normal limits. IMPRESSION: 1. Acute upper gastrointestinal bleed with blood noticed via the PEG tube and approximately 100 mL was aspirated with small clots. Most likely the bleeding could be from the distal esophageal carcinoma or at the PEG site. The patient was diagnosed with deep vein thrombosis 2 weeks ago and has been on Lovenox since then. She did have an upper endoscopy with PEG tube placement 2 weeks ago at [facility] and prior to that attempted esophageal wall flex stent placement, but patient did not tolerated the removed. 2. Deep vein thrombosis on Lovenox. RECOMMENDATIONS: 1. Hold anticoagulation. 2. Hold tube feeds. 3. We will start her on clear liquid diet. 4. Continue with Protonix 40 mg b.i.d. 5. Repeat CBC on a daily basis and transfuse if needed. 6. No plans for any endoscopy intervention at the present time. Thank you for this consultation. The plan was discussed with the patient as well as her daughter who is at the bedside. DEVANG / SUBHASH: [id number] /
[2018-01-30 10:52] LABS: Folate, Serum 17.3 ng/mL; Iron Saturation 7.75 (12.00-45.00)
--- NOTE | 2018-01-30 11:17 | PN ---
PROGRESS NOTE Mrs. Feliciano is a 77-year-old female with history of chronic persistent atrial fibrillation. History of cardiomyopathy, recently diagnosis with esophageal cancer with metastasis, who presented with worsening dyspnea and fluid overload. She is feeling better today. Her breathing is better. She has some bleeding around the PEG tube and her Lovenox is on hold. She is scheduled to undergo a PermCath catheter introduction tomorrow for chemotherapy. She denies any chest pain. Repeat echocardiogram yesterday revealed a severely impaired left ventricular systolic function. She continues to be on Lasix 40 mg twice a day, Protonix, Entresto, spironolactone 25 mg daily. PHYSICAL EXAMINATION: Blood pressure 102/50 with a heart rate in the 60s. LUNGS: Clear. HEART: Irregular, irregular. S1, S2. No S3 with systolic murmur. ABDOMEN: Soft. PEG tube in place. EXTREMITIES: 1+ edema, improved compared with yesterday. LAB DATA: Revealed a BUN and creatinine of 25 and 0.6, potassium 3.8, hemoglobin of 7.3. IMPRESSION: 1. Symptoms of congestive heart failure with known systolic dysfunction, improving. 2. Esophageal cancer with metastasis. 3. Atrial fibrillation, Lovenox on hold. 4. Status post ID biventricular pacing. RECOMMENDATION: From the cardiac standpoint, will continue present therapy. I will review the results of her report from [facility]. They report ejection fraction is 63%, but that is quite surprising and questionable in view of her prior history of cardiomyopathy that was diagnosed in 2011. In the meantime, will continue present therapy and depending on her progress, further recommendation will be made. Will follow her renal function and her hemoglobin. MMODL / IJN: [id number] /
--- NOTE | 2018-01-30 16:49 | P.PN ---
Subjective Progress Note Date: 01/30/18 Principal diagnosis: seizure Neurology is following on a 77-year-old female for seizure. Patient was brought to the ED for shortness of breath and pain on 01/28/18. Patient has history of esophageal cancer with a diagnosis of 2-3 months ago. Patient also has a known seizure history with management via Keppra. Patient was off of her medication for approximately 3-5 days and began having breakthrough seizure. Yesterday, patient's Keppra was restarted 1000 mg IV loading and continued at 1000 mg twice a day. Patient has had no breakthrough seizure since reimplementation of medication. Nursing reports no neurological status changes. Family reported no neurological status changes. Today, patient was supine in bed resting in no acute distress. Family is at the bedside. Patient was alert but appeared fatigued. Objective - Vital Signs Vital signs: Vital Signs Temp 96.8 F L 01/30/18 15:36 Pulse 63 01/30/18 15:36 Resp 20 01/30/18 15:36 BP 98/53 01/30/18 15:36 Pulse Ox 92 L 01/30/18 15:36 Intake & Output 01/29/18 01/30/18 01/30/18 18:59 06:59 18:59 Intake Total 120 520 0 Output Total 1924 1700 1625 Balance -1805 -1180 -1625 Weight 68.039 kg Intake: Tube Feeding 120 440 0 Other 80 Output: Urine 1924 1700 1625 Other: Voiding Method Indwelling Catheter Indwelling Catheter Indwelling Catheter - Exam General appearance: Alert & oriented x4, no apparent distress. Head: Atraumatic, normocephalic, normal inspection Eyes: Well appearance, PERRLA, EOMI. Absent scleral icterus, conjunctival injection, nystagmus, periorbital swelling. Ear, nose and throat: Normal exam, mucous membranes moist Neck: Normal inspection, absent tenderness, lymphadenopathy. Respiratory: No increased work of breathing Cardiovascular: Regular rate, rhythm GI/abdominal: Normal bowel sounds, nondistended, no tenderness, no guarding, no rebound, no rigidity. Extremities: full range of motion, normal capillary refill, no tenderness, pedal edema joint swelling, calf tenderness. Neurological: cranial nerves II through XII intact no lateralizing weakness no seizure activity noted on physical exam no pronator drift and no nystagmus. Psychological: Mood and affect appropriate for setting. - Labs CBC & Chem 7: 01/30/18 03:57 01/30/18 05:56 Labs: Abnormal Lab Results - Last 24 Hours (Table) 01/30/18 01/30/18 01/30/18 Range/Units 00:26 01:47 03:57 RBC 2.62 L (3.80-5.40) m/uL Hgb 7.3 L (11.4-16.0) gm/dL Hct 24.9 L (34.0-46.0) % MCHC 29.1 L (31.0-37.0) g/dL Sodium 133 L (137-145) mmol/L Potassium 3.3 L (3.5-5.1) mmol/L Chloride 91 L (98-107) mmol/L Carbon Dioxide 37 H (22-30) mmol/L BUN 25 H (7-17) mg/dL Glucose 132 H (74-99) mg/dL POC Glucose (mg/dL) 128 H (75-99) mg/dL Calcium 8.1 L (8.4-10.2) mg/dL 01/30/18 01/30/18 Range/Units 05:56 06:05 RBC (3.80-5.40) m/uL Hgb (11.4-16.0) gm/dL Hct (34.0-46.0) % MCHC (31.0-37.0) g/dL Sodium 132 L (137-145) mmol/L Potassium (3.5-5.1) mmol/L Chloride 92 L (98-107) mmol/L Carbon Dioxide 38 H (22-30) mmol/L BUN 25 H (7-17) mg/dL Glucose (74-99) mg/dL POC Glucose (mg/dL) 128 H (75-99) mg/dL Calcium 8.2 L (8.4-10.2) mg/dL Assessment and Plan (1) Seizure Narrative/Plan: Patient does have known seizure disorder. Patient is actively treating in our practice for disorder. Patient routinely utilizes Keppra 1000 mg twice a day. Reestablish Keppra at 1000 mg IV loading dose Continue Keppra 1000 mgtwice a day as maintenance dose Repeat Keppra level on 01/31/18 EEG pending Advanced brain imaging declined by patient and family to rule out any other underlying etiology. Risks, benefits and alternatives of declining imaging were discussed with family. Family excepts risks. Continue seizure precautions per protocol. continue neuro checks as implemented. If patient remains asymptomatic and Keppra level is within therapeutic window, patient will likely be cleared from a neurological standpoint on 01/31/18. Current Visit: Yes Status: Acute Code(s): R56.9 - UNSPECIFIED CONVULSIONS SNOMED Code(s): 56280860 (2) Altered mental status Narrative/Plan: see #1 above. 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 Current Visit: Yes Status: Acute Code(s): C78.89 - SECONDARY MALIGNANT NEOPLASM OF OTHER DIGESTIVE ORGANS SNOMED Code(s): 039848625 (4) Systolic heart failure Narrative/Plan: defer to primary team and cardiology. Current Visit: Yes Status: Acute Code(s): I50.20 - UNSPECIFIED SYSTOLIC ( CONGESTIVE) HEART FAILURE SNOMED Code(s): 675931833 Plan: STATUS: Neurology will continue to follow but anticipate neurological clearance on 01/31/18 if patient remains asymptomatic with regard to seizure and her Keppra level is within therapeutic level on updated laboratory blood work. Contact our office with any questions I have discussed the plan of care with the physician prior to implementation and he agrees with the plan as implemented.
[2018-01-30 21:02] LABS: Glucose,Whole Blood 109 mg/dL (75-99)
[2018-01-31 05:45] LABS: Glucose,Whole Blood 95 mg/dL (75-99)
[2018-01-31 06:25] LABS: Basophils % (A) 0 %; Eosinophils % (A) 0 %; HCT 26.2 % (34.0-46.0); HGB 8.3 gm/dL (11.4-16.0); Hypochromasia Marked; Lymphocytes # (A) 1.5 k/uL (1.0-4.8); Lymphocytes % (A) 21 %; MCH 30.3 pg (25.0-35.0); MCHC 31.7 g/dL (31.0-37.0); MCV 95.7 fL (80.0-100.0); Mean Platelet Volume 8.8; Monocytes # (A) 0.5 k/uL (0-1.0); Monocytes % (A) 7 %; Neutrophils % (A) 70 %; Platelet Count 287 k/uL (150-450); Poikilocytosis Slight; RBC 2.73 m/uL (3.80-5.40); RDW 15.5 % (11.5-15.5); WBC 7.1 k/uL (3.8-10.6)
[2018-01-31] MEDS: MORPHINE SULFATE 2 MG/ML SYRINGE IVP PRN (06:35)
[2018-01-31] MEDS: LEVOTHYROXINE 100 MCG TAB PO SCH (06:40)
[2018-01-31 06:42] LABS: Blood Urea Nitrogen 22 mg/dL (7-17); Calcium 8.2 mg/dL (8.4-10.2); Chloride 91 mmol/L (98-107); Glucose 93 mg/dL (74-99); Magnesium 1.8 mg/dL (1.6-2.3); Potassium 3.4 mmol/L (3.5-5.1); Sodium 136 mmol/L (137-145)
[2018-01-31 06:49] LABS: Anion Gap 5 mmol/L
[2018-01-31 07:06] LABS: Carbon Dioxide 40 mmol/L (22-30)
[2018-01-31] MEDS ORDERED: Potassium Replacement Protocol 1 EACH MISC MISCELLANE PRN (07:52)
[2018-01-31] MEDS: FUROSEMIDE 10 MG/ML 4 ML VIAL IV SCH (07:54)
[2018-01-31] MEDS: PANTOPRAZOLE 40 MG/10 ML VIAL IVP SCH (08:32)
[2018-01-31] MEDS: POTASSIUM BICARBONATE/CIT AC 20 MEQ TABLET.EFF NG-TUBE SCH ×2 (08:33→16:25)
[2018-01-31] MEDS ORDERED: HEPARIN SODIUM,PORCINE 100 UNIT/ML 5 ML VIAL IV ONE ×2 (11:24→12:22)
[2018-01-31] MEDS ORDERED: LIDOCAINE (PF) 10 MG/ML 2 ML VIAL SQ ONE (11:24)
[2018-01-31] MEDS ORDERED: PROPOFOL 10 MG/ML 20 ML VIAL IV ONE (11:47)
[2018-01-31] MEDS ORDERED: fentaNYL (PF) 50 MCG/ML 2 ML AMP ONE (11:47)
[2018-01-31] MEDS ORDERED: LACTATED RINGERS 1,000 ML IV ONE (11:47)
[2018-01-31] MEDS ORDERED: MIDAZOLAM 2 MG/2 ML VIAL ONE (11:47)
[2018-01-31] MEDS ORDERED: LIDOCAINE 1% INJ 10MG/ML (20 ML MDV) ONE (11:47)
[2018-01-31] MEDS ORDERED: LIDOCAINE 1% INJ 10MG/ML (20 ML MDV) SQ ONE (12:09)
--- NOTE | 2018-01-31 12:12 | P.PN ---
Subjective Mrs. Feliciano is a pleasant 77-year-old female being followed closely for chronic persistent atrial fibrillation, acute on chronic systolic heart failure , esophageal cancer with metastasis and cardiomyopathy. She follows with Dr. Grier in the office. She has been receiving IV Lasix 40 mg twice a day is diuresing nicely. Her weight is down 4 kg since admission and is in negative fluid balance today 3000 mL. She states her breathing is improving as well as her generalized edema. Family is at the bedside. He is from Mediport insertion today per Dr. Jones. Hemoglobin 8.3, platelets 287, sodium 136, potassium 3.4, creatinine 0.6, CO2 40, magnesium 1.8. Blood pressure 103/52 heart rate 68 afebrile maintaining oxygen saturation on room air. Objective - Vital Signs Vital signs: Vital Signs Temp 98.8 F 01/31/18 08:00 Pulse 60 01/31/18 08:00 Resp 20 01/31/18 08:00 BP 103/52 01/31/18 08:00 Pulse Ox 91 L 01/31/18 08:00 Intake & Output 01/30/18 01/31/18 01/31/18 18:59 06:59 18:59 Intake Total 0 100 210 Output Total 1625 1800 Balance -1625 -1700 210 Weight 64.6 kg Intake: IV 110 0.9% NS FLUSH 110 Tube Feeding 0 0 Other 100 100 Output: Urine 1625 1800 Other: Voiding Method Indwelling Catheter Indwelling Catheter Indwelling Catheter - Exam GENERAL: Well-appearing, well-nourished and in no acute distress. NECK: Supple without JVD or thyromegaly. LUNGS: Breath sounds clear to auscultation bilaterally. Respiration equal and unlabored. No wheezes, rales or rhonchi. HEART: Irregular rate and rhythm with systolic ejection murmur at the base, no rubs or gallops. S1 and S2 heard. EXTREMITIES: Normal range of motion, trace b/l lower extremity edema non- pitting. No clubbing or cyanosis. Peripheral pulses intact. - Labs CBC & Chem 7: 01/31/18 06:03 01/31/18 06:03 Labs: Abnormal Lab Results - Last 24 Hours (Table) 01/30/18 01/31/18 01/31/18 Range/Units 20:40 06:03 06:03 RBC 2.73 L (3.80-5.40) m/uL Hgb 8.3 L (11.4-16.0) gm/dL Hct 26.2 L (34.0-46.0) % Sodium 136 L (137-145) mmol/L Potassium 3.4 L (3.5-5.1) mmol/L Chloride 91 L (98-107) mmol/L Carbon Dioxide 40 H* (22-30) mmol/L BUN 22 H (7-17) mg/dL POC Glucose (mg/dL) 109 H (75-99) mg/dL Calcium 8.2 L (8.4-10.2) mg/dL Assessment and Plan Assessment: ASSESSMENT Acute on chronic systolic congestive heart failure, improving Chronic persistent atrial fibrillation Esophageal cancer with metastasis Status post biventricular pacemaker insertion Hypokalemia, replaced PLAN Patient has shown great improvement in her fluid overload. She has been mildly hypotensive. We will transition to oral diuretics today, 40 mg twice a day. Continue Aldactone, and entresto as previously ordered. Follow renal function and electrolytes tomorrow. Further recommendations based on clinical course. Nurse Practitioner note has been reviewed, I agree with a documented findings and plan of care. Patient was seen and examined.
[2018-01-31] MEDS: GABAPENTIN 100 MG CAP PO SCH ×3 (12:13→21:51)
--- NOTE | 2018-01-31 12:41 | P.OP ---
Date of Procedure: 01/31/18 Procedure(s) Performed: PREOPERATIVE DIAGNOSIS: Esophageal cancer POSTOPERATIVE DIAGNOSIS: Same PROCEDURE: Port-A-Cath placement SURGEON: Karen EBL: Minimal ANESTHESIA: Sedation COMPLICATIONS: None OPERATIVE PROCEDURE: Patient was brought and placed on the operative table in the supine position. The patient was sedated per anesthesia that time. The chest and neck were prepped and draped in usual sterile fashion. The ultrasound probe was used to identify the location of the right internal jugular vein. The skin was localized with lidocaine. The Seldinger needle was advanced into the IJ under ultrasound guidance. The wire was advanced through the needle under fluoroscopic guidance into the superior vena cava. A port pocket was created in the right infraclavicular location. The catheter was tunneled from the wire entrance site to the port pocket. The port was then connected to the catheter. The dilator introducer was threaded over the guidewire. The guidewire and dilator were then removed. The catheter was advanced through the introducer and introducer was then removed. The tip was seen to be in the right atrial junction. Port was flushed with both saline and a Hep-Lock solution. There was good flow both in and out of the port. The port was sutured in underlying tissues using 3-0 silk sutures. The subcutaneous tissues were reapproximated using 3-0 Vicryl sutures and the skin at both locations using 4-0 Monocryl sutures. Steri-Strips and sterile dressings then applied. DISPOSITION: Stable to recovery room
--- NOTE | 2018-01-31 12:42 | FL ---
FLUOROSCOPY 3 seconds of fluoroscopy time were utilized during Port-A-Cath insertion. 1 images document the proce dure.
--- NOTE | 2018-01-31 13:01 | XR ---
EXAMINATION TYPE: XR chest 1V confirm line [facility] DATE OF EXAM: 01/31/2018 HISTORY: Check line. REFERENCE: Previous study dated 01/28/2018. FINDINGS: There is a multilead pacing device in place on the left. There has been interval placement of a MediPort via a right internal jugular approach. Its tip is at the cavoatrial junction. The heart is enlarged. There is left basilar airspace disease. There is a left-sided effusion. There is vascular congestion and subtle interstitial change. IMPRESSION: 1. I DO NOT SEE A CATHETER INSERTION COMPLICATION. 2. CARDIOMEGALY. 3. LEFT BASILAR AIRSPACE DISEASE WITH CONCOMITANT EFFUSION. 4. I CANNOT EXCLUDE MILD HEART FAILURE.
[2018-01-31 13:03] LABS: Glucose,Whole Blood 95 mg/dL (75-99)
[2018-01-31 14:26] LABS: HGB 7.9 gm/dL (11.4-16.0); Hypochromasia Marked; MCH 29.2 pg (25.0-35.0); MCHC 30.5 g/dL (31.0-37.0); MCV 95.8 fL (80.0-100.0); Mean Platelet Volume 8.6; Platelet Count 312 k/uL (150-450); Poikilocytosis Slight; RBC 2.72 m/uL (3.80-5.40); RDW 15.1 % (11.5-15.5); WBC 8.4 k/uL (3.8-10.6)
--- NOTE | 2018-01-31 14:27 | P.PN ---
Subjective Progress Note Date: 01/31/18 Principal diagnosis: Systolic heart failure exacerbation Patient is doing well today. She is a little bit sleepy as she just returned from a chest port placement. She was noted to have worsening alkalosis this morning. No acute events overnight. No further bleeding through PEG tube. Objective - Vital Signs Vital signs: Vital Signs Temp 97.4 F L 01/31/18 12:35 Pulse 60 01/31/18 13:05 Resp 16 01/31/18 13:05 BP 104/54 01/31/18 13:05 Pulse Ox 100 01/31/18 13:05 Intake & Output 01/30/18 01/31/18 01/31/18 18:59 06:59 18:59 Intake Total 0 100 410 Output Total 1625 1800 45 Balance -1625 -1700 365 Weight 64.6 kg Intake: IV 310 0.9% NS FLUSH 110 Tube Feeding 0 0 Other 100 100 Output: Urine 1625 1800 40 Estimated Blood Loss 5 Other: Voiding Method Indwelling Catheter Indwelling Catheter Indwelling Catheter - Exam General: The patient is awake and alert, in no distress. She appears chronically ill Eye: there is normal conjunctiva bilaterally. Neck: The neck is supple, there is no JVD. Cardiovascular: Normal S1-S2, no S3-S4, no murmurs. Respiratory: Lungs clear to anterior chest auscultation bilaterally Gastrointestinal: Abdomen is soft, there is mild to moderate tenderness in the epigastric area Musculoskeletal: There is +1 pedal edema. Neurological:. Speech is normal. Skin: Skin is warm and dry - Labs CBC & Chem 7: 01/31/18 06:03 01/31/18 06:03 Labs: Abnormal Lab Results - Last 24 Hours (Table) 01/30/18 01/30/18 01/30/18 Range/Units 03:57 03:57 20:40 RBC (3.80-5.40) m/uL Hgb (11.4-16.0) gm/dL Hct (34.0-46.0) % Sodium (137-145) mmol/L Potassium (3.5-5.1) mmol/L Chloride (98-107) mmol/L Carbon Dioxide (22-30) mmol/L BUN (7-17) mg/dL POC Glucose (mg/dL) 109 H (75-99) mg/dL Calcium (8.4-10.2) mg/dL Iron 22 L (50-170) ug/dL Iron Saturation 7.75 L (12.00-45.00) Prealbumin 6.0 L (18.0-42.0) mg/dL 01/31/18 01/31/18 Range/Units 06:03 06:03 RBC 2.73 L (3.80-5.40) m/uL Hgb 8.3 L (11.4-16.0) gm/dL Hct 26.2 L (34.0-46.0) % Sodium 136 L (137-145) mmol/L Potassium 3.4 L (3.5-5.1) mmol/L Chloride 91 L (98-107) mmol/L Carbon Dioxide 40 H* (22-30) mmol/L BUN 22 H (7-17) mg/dL POC Glucose (mg/dL) (75-99) mg/dL Calcium 8.2 L (8.4-10.2) mg/dL Iron (50-170) ug/dL Iron Saturation (12.00-45.00) Prealbumin (18.0-42.0) mg/dL Assessment and Plan Assessment: 1. Acute systolic heart failure exacerbation, with elevated BNP and evidence of fluid overload both clinically and on x-ray. Started on IV Lasix 40 mg every 12 hours, now diuresis on hold given contraction alkalosis. Echocardiogram showed EF of 35%. Cardiology consulted, appreciate recommendation . We will continue telemetry monitoring. Monitor kidney function and electrolytes closely. 2. Dyspnea, most likely secondary to underlying heart failure exacerbation. Computed tomography scan of the chest was negative for PE. 3. 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 Plan to switch care locally to Dr. Garrett with oncology. Status post chest MediPort insertion on 01/31. Plan to start chemo when patient gets stronger as an outpatient. 4. Chronic atrial fibrillation: Rate controlled. 12-lead ECG in the emergency room showed atrial flutter. Cardiology following 5. History of chronic lower extremity DVT, on anticoagulation with Lovenox. Currently on hold secondary to GI bleed 6. Constipation, started on bowel regimen. Computed tomography scan of the abdomen with no obstruction. 7. Status post PEG tube insertion secondary to underlying esophageal cancer. Dietitian consulted. 8. Mild pancreatitis on presentation, lipase level improved. We will continue to monitor clinically. Start tube feeding 9. Upper GI bleed: With small amount of blood and blood clots noted in the PEG tube. Probably related to tumor bleeds from her esophageal cancer. Seen and evaluated by GI. No endoscopy at this time. Transfuse as needed for hemoglobin below 7. Currently hemoglobin stable Today, I reviewed her medication list and lab work results. We will continue current regimen. Repeat lab work in the morning. Appreciate consultants recommendations. Plan for today: -Resume tube feeding and monitor closely for signs of bleeding -Continue to hold Lovenox until I discussed risks and benefits with her daughter -Continue supportive care -PT/OT evaluation
--- NOTE | 2018-01-31 15:13 | P.PN ---
Subjective Progress Note Date: 01/31/18 Principal diagnosis: seizure Neurology is following on a 77-year-old female for seizure. Patient was brought to the ED for shortness of breath and pain on 01/28/18. Patient has history of esophageal cancer with a diagnosis of 2-3 months ago. Patient also has a known seizure history with management via Keppra. Patient was off of her medication for approximately 3-5 days and began having breakthrough seizure. Yesterday, patient's Keppra was restarted 1000 mg IV loading and continued at 1000 mg twice a day. Patient has had no breakthrough seizure since reimplementation of medication. Nursing reports no neurological status changes. Family reported no neurological status changes. Today, patient was in a bedside chair resting in no acute distress. Family is at the bedside. Patient was alert and appeared more alert than yesterday. Patient states she is doing better. Objective - Vital Signs Vital signs: Vital Signs Temp 97.4 F L 01/31/18 12:35 Pulse 60 01/31/18 13:05 Resp 16 01/31/18 13:05 BP 104/54 01/31/18 13:05 Pulse Ox 100 01/31/18 13:05 Intake & Output 01/30/18 01/31/18 01/31/18 18:59 06:59 18:59 Intake Total 0 100 410 Output Total 1625 1800 45 Balance -1625 -1700 365 Weight 64.6 kg Intake: IV 310 0.9% NS FLUSH 110 Tube Feeding 0 0 Other 100 100 Output: Urine 1625 1800 40 Estimated Blood Loss 5 Other: Voiding Method Indwelling Catheter Indwelling Catheter Indwelling Catheter - Exam General appearance: Alert & oriented x4, no apparent distress. Head: Atraumatic, normocephalic, normal inspection Eyes: Well appearance, PERRLA, EOMI. Absent scleral icterus, conjunctival injection, nystagmus, periorbital swelling. Ear, nose and throat: Normal exam, mucous membranes moist Neck: Normal inspection, absent tenderness, lymphadenopathy. Respiratory: No increased work of breathing Cardiovascular: Regular rate, rhythm GI/abdominal: Normal bowel sounds, nondistended, no tenderness, no guarding, no rebound, no rigidity. Extremities: full range of motion, normal capillary refill, no tenderness, pedal edema joint swelling, calf tenderness. Neurological: cranial nerves II through XII intact no lateralizing weakness no seizure activity noted on physical exam no pronator drift and no nystagmus. Psychological: Mood and affect appropriate for setting. - Labs CBC & Chem 7: 01/31/18 13:58 01/31/18 06:03 Labs: Abnormal Lab Results - Last 24 Hours (Table) 01/30/18 01/30/18 01/30/18 Range/Units 03:57 03:57 20:40 RBC (3.80-5.40) m/uL Hgb (11.4-16.0) gm/dL Hct (34.0-46.0) % MCHC (31.0-37.0) g/dL Sodium (137-145) mmol/L Potassium (3.5-5.1) mmol/L Chloride (98-107) mmol/L Carbon Dioxide (22-30) mmol/L BUN (7-17) mg/dL POC Glucose (mg/dL) 109 H (75-99) mg/dL Calcium (8.4-10.2) mg/dL Iron 22 L (50-170) ug/dL Iron Saturation 7.75 L (12.00-45.00) Prealbumin 6.0 L (18.0-42.0) mg/dL 01/31/18 01/31/18 01/31/18 Range/Units 06:03 06:03 13:58 RBC 2.73 L 2.72 L (3.80-5.40) m/uL Hgb 8.3 L 7.9 L (11.4-16.0) gm/dL Hct 26.2 L 26.0 L (34.0-46.0) % MCHC 30.5 L (31.0-37.0) g/dL Sodium 136 L (137-145) mmol/L Potassium 3.4 L (3.5-5.1) mmol/L Chloride 91 L (98-107) mmol/L Carbon Dioxide 40 H* (22-30) mmol/L BUN 22 H (7-17) mg/dL POC Glucose (mg/dL) (75-99) mg/dL Calcium 8.2 L (8.4-10.2) mg/dL Iron (50-170) ug/dL Iron Saturation (12.00-45.00) Prealbumin (18.0-42.0) mg/dL Assessment and Plan (1) Seizure Narrative/Plan: Patient does have known seizure disorder. Patient is actively treating in our practice for disorder. Patient routinely utilizes Keppra 1000 mg twice a day. Reestablish Keppra at 1000 mg IV loading dose Continue Keppra 1000 mgtwice a day as maintenance dose EEG pending Advanced brain imaging declined by patient and family to rule out any other underlying etiology. Risks, benefits and alternatives of declining imaging were discussed with family. Family excepts risks. Continue seizure precautions per protocol. continue neuro checks as implemented. Current Visit: Yes Status: Acute Code(s): R56.9 - UNSPECIFIED CONVULSIONS SNOMED Code(s): 14848371 (2) Altered mental status Narrative/Plan: see #1 above. 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 Current Visit: Yes Status: Acute Code(s): C78.89 - SECONDARY MALIGNANT NEOPLASM OF OTHER DIGESTIVE ORGANS SNOMED Code(s): 988192711 (4) Systolic heart failure Narrative/Plan: defer to primary team and cardiology. Current Visit: Yes Status: Acute Code(s): I50.20 - UNSPECIFIED SYSTOLIC ( CONGESTIVE) HEART FAILURE SNOMED Code(s): 541216090 Plan: STATUS: Neurology will clear the patient from a neurological standpoint at this time. Contact our office with any questions or if a reconsult is needed at a later date. I have discussed the plan of care with the physician prior to implementation and he agrees with the plan as implemented.
[2018-01-31] MEDS ORDERED: FUROSEMIDE 40 MG TAB PO SCH (16:00)
[2018-01-31] MEDS: levETIRAcetam ORAL SOLN 500 MG/5 ML CUP PEG/G-TUBE SCH ×2 (16:23→21:52)
[2018-01-31] MEDS: SACUBITRIL/VALSARTAN 24 MG-26 MG TABLET PO SCH ×2 (16:23→21:51)
[2018-01-31] MEDS: FOLIC ACID 1 MG TAB PO SCH (16:25)
[2018-01-31] MEDS: SPIRONOLACTONE 25 MG TAB PO SCH (16:25)
[2018-01-31] MEDS: HYDROcodone/APAP 15 ML SOLUTION PO PRN ×2 (18:07→22:16)
[2018-02-01 06:31] LABS: Basophils % (A) 0 %; Eosinophils % (A) 0 %; HCT 24.2 % (34.0-46.0); HGB 7.4 gm/dL (11.4-16.0); Hypochromasia Marked; Lymphocytes # (A) 1.3 k/uL (1.0-4.8); Lymphocytes % (A) 20 %; MCHC 30.6 g/dL (31.0-37.0); Mean Platelet Volume 8.4; Monocytes # (A) 0.4 k/uL (0-1.0); Monocytes % (A) 6 %; Neutrophils # (A) 4.7 k/uL (1.3-7.7); Neutrophils % (A) 71 %; Platelet Count 291 k/uL (150-450); RBC 2.55 m/uL (3.80-5.40); RDW 15.1 % (11.5-15.5); WBC 6.6 k/uL (3.8-10.6)
[2018-02-01 06:43] LABS: Anion Gap 3 mmol/L; Blood Urea Nitrogen 23 mg/dL (7-17); Calcium 8.1 mg/dL (8.4-10.2); Carbon Dioxide 39 mmol/L (22-30); Chloride 92 mmol/L (98-107); Glucose 148 mg/dL (74-99); Magnesium 1.9 mg/dL (1.6-2.3); Potassium 3.7 mmol/L (3.5-5.1); Sodium 134 mmol/L (137-145)
[2018-02-01] MEDS: LEVOTHYROXINE 100 MCG TAB PO SCH (06:50)
[2018-02-01] MEDS ORDERED: FUROSEMIDE 40 MG TAB PO SCH (09:00)
--- NOTE | 2018-02-01 09:59 | P.PN ---
Subjective Progress Note Date: 02/01/18 Principal diagnosis: Systolic heart failure exacerbation Patient is doing well today. She was up in the chair when I saw her. She does not have any complaint at this time. Objective - Vital Signs Vital signs: Vital Signs Temp 98 F 02/01/18 09:30 Pulse 60 02/01/18 09:30 Resp 16 02/01/18 09:30 BP 98/64 02/01/18 09:30 Pulse Ox 95 02/01/18 09:30 Intake & Output 01/31/18 02/01/18 02/01/18 18:59 06:59 18:59 Intake Total 490 210 Output Total 45 2600 Balance 445 -2390 Weight 65.5 kg Intake: IV 390 0.9% NS FLUSH 190 Oral 0 Tube Feeding 0 210 Other 100 Output: Urine 40 2600 Uretheral (Diehl) 1900 Estimated Blood Loss 5 Other: Voiding Method Indwelling Catheter Indwelling Catheter - Exam General: The patient is awake and alert, in no distress. She appears chronically ill Eye: there is normal conjunctiva bilaterally. Neck: The neck is supple, there is no JVD. Cardiovascular: Normal S1-S2, no S3-S4, no murmurs. Respiratory: Lungs clear to anterior chest auscultation bilaterally Gastrointestinal: Abdomen is soft, there is mild to moderate tenderness in the epigastric area Musculoskeletal: There is +1 pedal edema. Neurological:. Speech is normal. Skin: Skin is warm and dry - Labs CBC & Chem 7: 02/01/18 06:08 02/01/18 06:08 Labs: Abnormal Lab Results - Last 24 Hours (Table) 01/30/18 01/30/18 01/31/18 Range/Units 03:57 03:57 13:58 RBC 2.72 L (3.80-5.40) m/uL Hgb 7.9 L (11.4-16.0) gm/dL Hct 26.0 L (34.0-46.0) % MCHC 30.5 L (31.0-37.0) g/dL Sodium (137-145) mmol/L Chloride (98-107) mmol/L Carbon Dioxide (22-30) mmol/L BUN (7-17) mg/dL Glucose (74-99) mg/dL Calcium (8.4-10.2) mg/dL Iron 22 L (50-170) ug/dL Iron Saturation 7.75 L (12.00-45.00) Prealbumin 6.0 L (18.0-42.0) mg/dL 02/01/18 02/01/18 Range/Units 06:08 06:08 RBC 2.55 L (3.80-5.40) m/uL Hgb 7.4 L (11.4-16.0) gm/dL Hct 24.2 L (34.0-46.0) % MCHC 30.6 L (31.0-37.0) g/dL Sodium 134 L (137-145) mmol/L Chloride 92 L (98-107) mmol/L Carbon Dioxide 39 H (22-30) mmol/L BUN 23 H (7-17) mg/dL Glucose 148 H (74-99) mg/dL Calcium 8.1 L (8.4-10.2) mg/dL Iron (50-170) ug/dL Iron Saturation (12.00-45.00) Prealbumin (18.0-42.0) mg/dL Assessment and Plan Assessment: This is a 77-year-old female with medical history significant for recently diagnosed metastatic esophageal cancer who presented to the hospital with worsening weakness and evidence of fluid overload. Patient was admitted to the hospital and was treated for the below mentioned medical problems. 1. Acute systolic heart failure exacerbation, with elevated BNP and evidence of fluid overload both clinically and on x-ray. Started on IV Lasix 40 mg every 12 hours, then switched to by mouth Lasix. Echocardiogram showed EF of 35%. Cardiology consulted, appreciate recommendation . We will continue telemetry monitoring. Monitor kidney function and electrolytes closely. 2. Dyspnea, now improved. most likely secondary to underlying heart failure exacerbation. Computed tomography scan of the chest was negative for PE. 3. 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 Plan to switch care locally to Dr. Garrett with oncology. Status post chest MediPort insertion on 01/31. Plan to start chemo when patient gets stronger as an outpatient. Follow-up with Dr. Garrett in the office as directed 4. Chronic atrial fibrillation: Rate controlled. 12-lead ECG in the emergency room showed atrial flutter. Cardiology following 5. History of chronic lower extremity DVT, on anticoagulation with Lovenox. 6. Constipation, started on bowel regimen. Computed tomography scan of the abdomen with no obstruction. 7. Status post PEG tube insertion at [facility] secondary to underlying esophageal cancer. Dietitian consulted. 8. Mild pancreatitis on presentation, lipase level improved. We will continue to monitor clinically. continue tube feeding 9. Upper GI bleed: With small amount of blood and blood clots noted in the PEG tube. Now resolved. Probably related to tumor bleeds from her esophageal cancer. Seen and evaluated by GI. No endoscopy at this time. Transfuse as needed for hemoglobin below 7. Currently hemoglobin stable Today, I reviewed her medication list and lab work results. We will continue current regimen. Repeat lab work in the morning. Appreciate consultants recommendations. Plan for today: -Discontinue Diehl catheter and check bladder scan every 8 hours to rule out urinary retention -Continue tube feeding and increase rate as directed by dietitian to reach goal of 45 mL per hour -Repeat lab work in the morning -Plan to discharge home with home care tomorrow and the caregiver of her daughter who is RN at this hospital -Discharge medications reconciliation done and prescription needed sent
[2018-02-01] MEDS: SODIUM FERRIC GLUCONAT-SUCROSE 125 MG in SODIUM CHLORIDE 0.9% 100 ML IVPB SCH (10:25)
[2018-02-01] MEDS: GABAPENTIN 100 MG CAP PO SCH ×3 (10:26→20:22)
[2018-02-01] MEDS: PANTOPRAZOLE 40 MG/10 ML VIAL IVP SCH (10:26)
[2018-02-01] MEDS: levETIRAcetam ORAL SOLN 500 MG/5 ML CUP PEG/G-TUBE SCH ×2 (10:26→20:23)
[2018-02-01] MEDS: SACUBITRIL/VALSARTAN 24 MG-26 MG TABLET PO SCH ×2 (10:26→20:22)
[2018-02-01] MEDS: SPIRONOLACTONE 25 MG TAB PO SCH (10:27)
[2018-02-01] MEDS: FOLIC ACID 1 MG TAB PO SCH (10:28)
[2018-02-01 10:32] VITALS: BMI 28.2
[2018-02-01] MEDS: HYDROcodone/APAP 15 ML SOLUTION PO PRN ×2 (10:42→20:31)
--- NOTE | 2018-02-01 13:19 | P.PN ---
Progress Note - Text Progress Note Date: 02/01/18 Patient seen after Port-A-Cath yesterday. She is doing well. Her incision is healing nicely. No symptoms of pain. We'll sign off. Please call if needed.
[2018-02-01] MEDS ORDERED: FUROSEMIDE 10 MG/ML 4 ML VIAL IV STA (13:25)
--- NOTE | 2018-02-01 13:25 | P.PN ---
Subjective Progress Note Date: 02/01/18 Mrs. Feliciano is a pleasant 77-year-old female being followed closely for chronic persistent atrial fibrillation, acute on chronic systolic heart failure , esophageal cancer with metastasis and cardiomyopathy. She follows with Dr. Grier in the office. Patient diuresed well on IV Lasix, she is currently on oral diuretics at this time. She was seen and examined sitting in chair at bedside. Continues to have at least 2+ peripheral edema. White blood cell count 6.6, hemoglobin 7.4, platelet count 291. Sodium 134, potassium 3.7, BUN 23, creatinine 0.5. Objective - Vital Signs Vital signs: Vital Signs Temp 98 F 02/01/18 09:30 Pulse 60 02/01/18 12:00 Resp 16 02/01/18 12:00 BP 97/58 02/01/18 12:00 Pulse Ox 100 02/01/18 12:00 Intake & Output 01/31/18 02/01/18 02/01/18 18:59 06:59 18:59 Intake Total 490 210 Output Total 45 2600 Balance 445 -2390 Weight 65.5 kg 65.5 kg Intake: IV 390 0.9% NS FLUSH 190 Oral 0 Tube Feeding 0 210 Other 100 Output: Urine 40 2600 Uretheral (Diehl) 1900 Estimated Blood Loss 5 Other: Voiding Method Indwelling Catheter Indwelling Catheter Indwelling Catheter - Exam GENERAL: Well-appearing, well-nourished and in no acute distress. NECK: Supple without JVD or thyromegaly. LUNGS: Breath sounds clear to auscultation bilaterally. Respiration equal and unlabored. No wheezes, rales or rhonchi. HEART: Irregular rate and rhythm with systolic ejection murmur at the base, no rubs or gallops. S1 and S2 heard. EXTREMITIES: Normal range of motion, 2-3+ b/l lower extremity edema non- pitting. No clubbing or cyanosis. Peripheral pulses intact. - Labs CBC & Chem 7: 02/01/18 06:08 02/01/18 06:08 Labs: Abnormal Lab Results - Last 24 Hours (Table) 01/31/18 02/01/18 02/01/18 Range/Units 13:58 06:08 06:08 RBC 2.72 L 2.55 L (3.80-5.40) m/uL Hgb 7.9 L 7.4 L (11.4-16.0) gm/dL Hct 26.0 L 24.2 L (34.0-46.0) % MCHC 30.5 L 30.6 L (31.0-37.0) g/dL Sodium 134 L (137-145) mmol/L Chloride 92 L (98-107) mmol/L Carbon Dioxide 39 H (22-30) mmol/L BUN 23 H (7-17) mg/dL Glucose 148 H (74-99) mg/dL Calcium 8.1 L (8.4-10.2) mg/dL Assessment and Plan Plan: ASSESSMENT #1 Acute on chronic systolic congestive heart failure, improving #2 Chronic persistent atrial fibrillation #3 Esophageal cancer with metastasis #4 Status post biventricular pacemaker insertion #5 Hypokalemia, replaced Plan From cardiology's perspective, we'll continue current dose of by mouth Lasix, we will give the patient a dose of IV Lasix today. Continue Aldactone and Entresto. Some of the patient's significant peripheral edema could also be secondary to malnutrition. We will continue to follow. DNP note has been reviewed, I agree with a documented findings and plan of care. Patient was seen and examined.
--- NOTE | 2018-02-01 14:49 | EEG ---
ELECTROENCEPHALOGRAM REPORT DATE OF SERVICE: 01/29/2018. REASON FOR TESTING: Altered mental status. DESCRIPTION OF THE PROCEDURE: This EEG was performed using a 21 channel digital electroencephalograph, following international 10-20 system. DESCRIPTION OF THE RECORDING: From the beginning of the tracing, with patient's eyes closed, the background rhythm was mostly consisting of 7 Hz theta frequency in the posterior occipital leads. No obvious asymmetry is seen. Photic stimulation was performed with no driving response seen. No pathological waves were elicited. Hyperventilation was not performed. The patient does reach stage II of sleep during the tracing and occasional K complexes are seen. Occasional muscle and movement artifacts are seen. No epileptiform discharges were seen. Her EKG lead showed a regular rate and rhythm. INTERPRETATION: This asleep and awake EEG is abnormal due to presence of generalized slowing of the background rhythm, mostly in the theta range. This is consistent with mild encephalopathy. No epileptiform discharges were seen. The absence of epileptiform discharges does not rule out the diagnosis of epilepsy; therefore clinical correlation is recommended. MMROQUE / INNAN: [id number] /
[2018-02-01] MEDS: MAGNESIUM SULFATE-D5W PMX 1 GM in DEXTROSE/WATER 1 100ML.BAG IVPB SCH ×2 (16:27→17:46)
[2018-02-01] MEDS: METOPROLOL TARTRATE 12.5 MG TAB PO SCH (20:22)
[2018-02-02 05:15] VITALS: RESP 16
[2018-02-02 06:30] LABS: Basophils % (A) 0 %; Eosinophils # (A) 0.1 k/uL (0-0.7); Eosinophils % (A) 1 %; HGB 7.7 gm/dL (11.4-16.0); Hypochromasia Marked; Lymphocytes # (A) 1.3 k/uL (1.0-4.8); Lymphocytes % (A) 16 %; MCH 28.7 pg (25.0-35.0); MCHC 29.7 g/dL (31.0-37.0); MCV 96.4 fL (80.0-100.0); Mean Platelet Volume 8.3; Monocytes # (A) 0.5 k/uL (0-1.0); Monocytes % (A) 6 %; Neutrophils # (A) 6.1 k/uL (1.3-7.7); Neutrophils % (A) 75 %; Platelet Count 288 k/uL (150-450); RBC 2.69 m/uL (3.80-5.40); RDW 15.1 % (11.5-15.5); WBC 8.2 k/uL (3.8-10.6)
[2018-02-02] MEDS: LEVOTHYROXINE 100 MCG TAB PO SCH (06:43)
[2018-02-02 07:02] LABS: Anion Gap 5 mmol/L; Blood Urea Nitrogen 20 mg/dL (7-17); Calcium 8.1 mg/dL (8.4-10.2); Carbon Dioxide 35 mmol/L (22-30); Chloride 93 mmol/L (98-107); Glucose 115 mg/dL (74-99); Magnesium 2.4 mg/dL (1.6-2.3); Potassium 3.4 mmol/L (3.5-5.1); Sodium 133 mmol/L (137-145)
[2018-02-02 08:11] VITALS: BP 92/47; PULSE 60; TEMP 97.8
[2018-02-02] MEDS ORDERED: POTASSIUM BICARBONATE/CIT AC 20 MEQ TABLET.EFF PO ONE (08:13)
[2018-02-02] MEDS ORDERED: FUROSEMIDE 40 MG TAB PO SCH (09:00)
[2018-02-02] MEDS: SODIUM FERRIC GLUCONAT-SUCROSE 125 MG in SODIUM CHLORIDE 0.9% 100 ML IVPB SCH (09:22)
[2018-02-02] MEDS: levETIRAcetam ORAL SOLN 500 MG/5 ML CUP PEG/G-TUBE SCH (09:23)
[2018-02-02] MEDS: GABAPENTIN 100 MG CAP PO SCH (09:23)
[2018-02-02] MEDS: PANTOPRAZOLE 40 MG/10 ML VIAL IVP SCH (09:23)
[2018-02-02] MEDS: FOLIC ACID 1 MG TAB PO SCH (09:24)
[2018-02-02] MEDS: SPIRONOLACTONE 25 MG TAB PO SCH (09:24)
[2018-02-02] MEDS: METOPROLOL TARTRATE 12.5 MG TAB PO SCH (09:24)
[2018-02-02] MEDS: SACUBITRIL/VALSARTAN 24 MG-26 MG TABLET PO SCH (09:24)
--- NOTE | 2018-02-02 10:28 | P.DS ---
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 fib Chronic lower extremity DVT Constipation Mild pancreatitis Upper GI bleed Hospital Course: Patient is a 77-year-old female with a complex past medical history significant for recently diagnosed metastatic esophageal cancer with metastasis to the liver, chronic systolic congestive heart failure, and chronic atrial fibrillation who presented to the emergency room with shortness of breath. She was subsequently diagnosed with acute exacerbation of congestive heart failure and an irritated to the selective care unit. She was placed on Lasix IV 3 times daily and cardiology was consulted. She was also noted to have mild pancreatitis and GI was consulted. GI recommended supportive care for her mild pancreatitis which had fully resolved by 01/29. Cardiology saw the patient a repeat echo was performed that showed an ejection fraction of 30-35%. On 01/29 she developed an episode of hypotension and her Lasix was subsequently transitioned to twice daily. She was also noted to have constipation. She had had a negative CT abdomen and pelvis at admission was started on a bowel regimen. She had reported a breakthrough seizure at home and had him for many stopped taking Brought after some confusion. She was seen by neurology EEG was repeated which was not consistent with epileptiform activity. Her Keppra was transitioned to liquid for ease of use with her PEG tube. On 01/30 her hemoglobin had decreased slightly and there is blood around her PEG tube. GI was notified but felt it was likely a small amount of bleeding from her tumor and that no urgent EGD was required. Dr. Jones was consulted for her Mediport placement and patient underwent this on 01/31 without complications. On 01/31 she was transitioned to oral diuretics by cardiology. She continued to progress well throughout her hospitalization. She had no significant GI bleed but did have some dried blood around her PEG tube site. Case was discussed with GI and she was approved to resume anticoagulation. Her prior Lovenox therapy was cost prohibitive and she was transitioned to Xarelto after discussion with Dr. Garrett. She is determined stable for discharge home. She has home health care in place as well as multiple assistive devices. Discharge plan was discussed with her daughter in detail. She was provided with new prescriptions for her Keppra liquid 1000 mg twice a day, spironolactone 25 mg daily, and Lopressor 12.5 mg twice a day. She will continue her tube feeds and she is currently at 40 MLS per hour that her goal be 45. She will follow-up with Dr. Garrett in 1 week, Dr. CAROLYNN iverson on 02/16, Dr. Ramirez on 02/15, and Dr. De La Fuente in 1 week. Patient seen and examined at bedside. Denies any chest pain, palpitations, or unusual shortness of breath. Is feeling hungry today. He complains of constipation but wants to take something at home. Denies any nausea or vomiting. No yogurt. Vital signs reviewed and stable. General: Ill-appearing, no distress, appears older than stated age, on Derm: Multiple areas of ecchymoses, warm, dry Head: atraumatic, normocephalic, symmetric Eyes: EOMI, no lid lag, anicteric sclera Mouth: no lip lesion, mucus membranes dry Cardiovascular: S1-S2 regular, no murmur, positive posterior tibial pulse bilateral, Lungs: Decreased breath sounds bilaterally without wheeze, no accessory muscle use Abdominal: soft, nontender to palpation, no guarding, no appreciable organomegaly Ext: no gross muscle atrophy, no edema, no contractures Neuro: CN II-XI grossly intact, no focal neuro deficits Psych: Alert, oriented, appropriate affect A total of 40 minutes of time were spent preparing this complex discharge summary . Pertinent Studies: CT abdomen and pelvis-multifocal liver lesions with the appearance of metastatic neoplasm, small volume simple-appearing peritoneal fluid in the cul- de-sac CTA of the chest-negative for pulmonary embolism, positive for bilateral pleural effusions and bibasilar atelectasis with interstitial phase pulmonary edema Echocardiogram-ejection fraction 30-35%, mild pulmonary hypertension, moderate mitral regurg EEG-generalized slowing consistent with mild encephalopathy Procedures: Port-A-Cath placed 01/31 Patient Condition at Discharge: Serious Plan - Discharge Summary Discharge Rx Participant: No New Discharge Prescriptions: New RX: Spironolactone [Aldactone] 25 mg PO DAILY #30 tab RX: Metoprolol Tartrate [Lopressor] 12.5 mg PO BID #60 tab Rivaroxaban [Xarelto] 20 mg PEG/G-TUBE DAILY #30 tab Continue RX: Levothyroxine Sodium [Synthroid] 100 mcg PO QAM RX: Aspirin 81 mg PO DAILY RX: Sacubitril/Valsartan [Entresto 24 mg-26 mg Tablet] 1 each PO BID RX: Thiamine [Vitamin B-1] 100 mg PO DAILY RX: Hydrocodone/Acetaminophen [Hycet 7.5 mg-325 mg/15 ml Soln] 5 - 10 ml PO Q4HR PRN PRN Reason: Pain RX: Acetaminophen Tab [Tylenol] 325 - 650 mg PO Q4H PRN PRN Reason: Pain RX: Omeprazole [PriLOSEC] 20 mg PO AC-BRKFST RX: Gabapentin [Neurontin] 100 mg PO TID RX: Furosemide [Lasix] 40 mg PO BID RX: Folic Acid 1 mg PO DAILY Discharge Medication List RX: Aspirin 81 mg PO DAILY 08/01/14 [History] RX: Levothyroxine Sodium [Synthroid] 100 mcg PO QAM 08/01/14 [History] RX: Sacubitril/Valsartan [Entresto 24 mg-26 mg Tablet] 1 each PO BID 12/01/17 [ History] RX: Acetaminophen Tab [Tylenol] 325 - 650 mg PO Q4H PRN 01/28/18 [History] RX: Folic Acid 1 mg PO DAILY 01/28/18 [History] RX: Furosemide [Lasix] 40 mg PO BID 01/28/18 [History] RX: Gabapentin [Neurontin] 100 mg PO TID 01/28/18 [History] RX: Hydrocodone/Acetaminophen [Hycet 7.5 mg-325 mg/15 ml Soln] 5 - 10 ml PO Q4HR PRN 01/28/18 [History] RX: Omeprazole [PriLOSEC] 20 mg PO AC-BRKFST 01/28/18 [History] RX: Thiamine [Vitamin B-1] 100 mg PO DAILY 01/28/18 [History] RX: Spironolactone [Aldactone] 25 mg PO DAILY #30 tab 02/01/18 [Rx] RX: Metoprolol Tartrate [Lopressor] 12.5 mg PO BID #60 tab 02/02/18 [Rx] Rivaroxaban [Xarelto] 20 mg PEG/G-TUBE DAILY #30 tab 02/02/18 [Rx] Follow up Appointment(s)/Referral(s): Cisco Grier MD [STAFF PHYSICIAN] - 4 Weeks Paul Garrett MD [STAFF PHYSICIAN] - 1 Week (Oncologist.) Delbert Sanchez MD [STAFF PHYSICIAN] - 02/16/18 2:00 pm Taina Ramirez MD [Primary Care Provider] - 02/15/18 1:45 pm (Thursday) Fabian De La Fuente MD [STAFF PHYSICIAN] - 1 Week [facility] Visiting Nurse, [NON-STAFF] - Patient Instructions/Handouts: A-fib (Atrial Fibrillation) (DC), Recurrent Seizures in Adults (DC) Activity/Diet/Wound Care/Special Instructions: Tube Feeding and Supplies - Active [facility] - [phone] Discharge Disposition: HOME WITH HOME HEALTH SERVICES
[2018-02-02] MEDS: HYDROcodone/APAP 15 ML SOLUTION PO PRN (11:55)
--- NOTE | 2018-02-02 13:51 | P.CONS ---
History of Present Illness - Reason for Consult Consult date: 01/29/18 Esophageal Carcinoma Requesting physician: Bran Shields - Chief Complaint Shortness of Breath - History of Present Illness This is a very pleasant 77 year old female patient who originally presented in November of 2017 for difficulty swallowing. She underwent an EGD with Dr. 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 Past Medical History Past Medical History: Atrial Fibrillation, Cancer, Heart Failure, CVA/TIA, Deep Vein Thrombosis (DVT), Pneumonia, Seizure Disorder, Thyroid Disorder Additional Past Medical History / Comment(s): hx difficulty swallowing and keeping solids down specifically meats/had egd w/ bx -positive for esophageal cancer-has had esophageal dilations w/2 stents since removed no chemo or radiation. pt stated pet scan spots on liver. last stroke mar 2011 (rt hand weaker), post stroke seizures last seizure December 2013, pneumonia,bronchitis, uti History of Any Multi-Drug Resistant Organisms: None Reported Past Surgical History: AICD, Bladder Surgery, Cholecystectomy, Hysterectomy Additional Past Surgical History / Comment(s): difibrillator/pacemaker 2016, left chest-[employer]tronic, stent in esaphagus december 2017, feeding tube ,egd/ dilations. stents(since removed) Past Anesthesia/Blood Transfusion Reactions: No Reported Reaction, Family History of Problems w/ Anesthesia Additional Past Anesthesia/Blood Transfusion Reaction / Comm: father had anesthesia for bladder bx and did not wake up after surgery at age 80 Type of Cardiac Device: AICD Device Placement Date:: 2016 Smoking Status: Never smoker - Past Family History father Family Medical History: Cancer Additional Family Medical History / Comment(s): bladder mother Family Medical History: Congestive Heart Failure (CHF), Deep Vein Thrombosis ( DVT) Medications and Allergies Home Medications Medication Instructions Recorded Confirmed Type Aspirin 81 mg PO DAILY 08/01/14 01/28/18 History Levothyroxine Sodium [Synthroid] 100 mcg PO QAM 08/01/14 01/28/18 History Sacubitril/Valsartan [Entresto 24 1 each PO BID 12/01/17 01/28/18 History mg-26 mg Tablet] Acetaminophen Tab [Tylenol] 325 - 650 mg PO Q4H PRN 01/28/18 01/28/18 History Folic Acid 1 mg PO DAILY 01/28/18 01/28/18 History Furosemide [Lasix] 40 mg PO BID 01/28/18 01/28/18 History Gabapentin [Neurontin] 100 mg PO TID 01/28/18 01/28/18 History Hydrocodone/Acetaminophen [Hycet 5 - 10 ml PO Q4HR PRN 01/28/18 01/28/18 History 7.5 mg-325 mg/15 ml Soln] Omeprazole [PriLOSEC] 20 mg PO AC-BRKFST 01/28/18 01/28/18 History Thiamine [Vitamin B-1] 100 mg PO DAILY 01/28/18 01/28/18 History Spironolactone [Aldactone] 25 mg PO DAILY #30 tab 02/01/18 Rx Metoprolol Tartrate [Lopressor] 12.5 mg PO BID #60 tab 02/02/18 Rx Rivaroxaban [Xarelto] 20 mg PEG/G-TUBE DAILY #30 tab 02/02/18 Rx Allergies Allergy/AdvReac Type Severity Reaction Status Date / Time shellfish derived Allergy Vomiting Verified 01/28/18 15:56 [id number]-[id number] Reductase AdvReac MUSCLE Verified 01/28/18 15:56 Inhibitor PAINS Physical Exam Vitals: Vital Signs Temp Pulse Resp BP Pulse Ox 01/29/18 12:00 98 F 60 16 110/58 96 01/29/18 09:38 97.5 F L 60 16 97/60 95 01/29/18 08:53 99 01/29/18 08:00 16 01/29/18 04:00 97.6 F 60 16 103/57 99 01/29/18 00:35 96.5 F L 60 16 100/53 96 01/28/18 20:30 97.4 F L 60 16 119/62 99 Intake and Output 01/29/18 01/29/18 01/29/18 06:59 14:59 22:59 Intake Total 20 0 Output Total 1200 725 Balance 20 -1200 -725 Intake: IV 20 0.9% NS FLUSH 20 Tube Feeding 0 0 Output: Urine 1200 725 Other: Voiding Method Indwelling Catheter Indwelling Catheter Weight 68.039 kg - Constitutional General appearance: cooperative, no acute distress - EENT Eyes: EOMI, PERRLA, dentition normal ENT: hard of hearing, NA/AT, normal oropharynx - Neck Trachea midline Neck: normal ROM - Respiratory Respiratory: bilateral: CTA (no increased effort) - Cardiovascular Rhythm: regular Heart sounds: normal: S1, S2 - Gastrointestinal General gastrointestinal: soft, tenderness - Integumentary Integumentary: pale - Neurologic Neurologic: CNII-XII intact - Musculoskeletal Musculoskeletal: generalized weakness - Psychiatric sleepy Psychiatric: A&O x's 3 Results CBC & Chem 7: 02/02/18 05:49 02/02/18 05:49 Labs: Abnormal Lab Results - Last 24 Hours (Table) 01/28/18 01/29/18 01/29/18 Range/Units 14:58 05:18 05:18 RBC 2.41 L (3.80-5.40) m/uL Hgb 7.4 L (11.4-16.0) gm/dL Hct 23.4 L (34.0-46.0) % RDW 15.9 H (11.5-15.5) % Lymphocytes # 0.9 L (1.0-4.8) k/uL Sodium 133 L (137-145) mmol/L Chloride 93 L (98-107) mmol/L Carbon Dioxide 35 H (22-30) mmol/L BUN 22 H (7-17) mg/dL Glucose 137 H (74-99) mg/dL Calcium 8.1 L (8.4-10.2) mg/dL Amylase 116 H (30-110) U/L Lipase 652 H (23-300) U/L 01/29/18 Range/Units 05:18 RBC (3.80-5.40) m/uL Hgb (11.4-16.0) gm/dL Hct (34.0-46.0) % RDW (11.5-15.5) % Lymphocytes # (1.0-4.8) k/uL Sodium (137-145) mmol/L Chloride (98-107) mmol/L Carbon Dioxide (22-30) mmol/L BUN (7-17) mg/dL Glucose (74-99) mg/dL Calcium (8.4-10.2) mg/dL Amylase (30-110) U/L Lipase 307 H (23-300) U/L Assessment and Plan Plan: Assessment and Recommendations: 1. Metastatic Adenocarcinoma of the Esophagus, Recent Diagnosis - - Was seeing Oncologist out of [facility], no treatment initated at this time, working on increasing overall performancy status and nutrition - Plan will be to have mediport placed during this admission and increase strength, likely discharge to rehabilitation facilities and after rehab will follow-up in office for plan and treatment options for new esophageal diagnosis - I have sent her original pathology for further molecular testing - Long discussion today with patient and daughter regarding, plan, natural history of disease and options based on overall performance status. 2. Dysphagia - Peg tube 3. Protein calorie malnutrition - Moderate - Peg tube with tube feedings per gun striper 4. Recent DVT - Has been receiving SQ lovenox as outpatient, ok for treatment eliquis or xarelto in place of lovenox 5. Acute systolic heart failure exacerbation, with elevated BNP and evidence of fluid overload both clinically and on x-ray. Started on IV Lasix 40 mg every 8 hours. I would obtain echocardiogram as no recent echo is available for me to review. Cardiology consulted. 6. Normocytic Anemia - - Monitor CBC and transfuse hemoglobin less than 7. - Will check nutritional panel Iron, B12 for decreased po intake Physician Attestation: I have completed the full history and physical of this patient and agree with above dictation by Ca Overton NP. DIctated as a scribe. Time with Patient: Greater than 30
--- NOTE | 2018-02-02 13:54 | P.PN ---
Subjective Progress Note Date: 02/02/18 Principal diagnosis: Metastatic Esophageal Cancer Patient is planning on discharge to rehab today Objective - Vital Signs Vital signs: Vital Signs Temp 97.8 F 02/02/18 07:50 Pulse 60 02/02/18 07:50 Resp 16 02/02/18 07:50 BP 92/47 02/02/18 07:50 Pulse Ox 99 02/02/18 07:50 Intake & Output 02/01/18 02/02/18 02/02/18 18:59 06:59 18:59 Intake Total 480 450 Output Total 500 500 Balance -20 -50 Weight 65.5 kg 62.9 kg Intake: Intake, IV Titration 100 Amount Sodium Ferric Gluconat- 100 Sucrose 125 mg In Sodium Chloride 0.9% 100 ml @ 100 mls/hr IVPB DAILY [facility] Rx#:[id number] Tube Feeding 200 450 Other 180 Output: Urine 500 500 Other: Voiding Method Bedside Commode Bedside Commode Bedside Commode - Constitutional General appearance: Present: cooperative, no acute distress - EENT Eyes: Present: EOMI, dentition normal ENT: Present: hard of hearing, NA/AT, normal oropharynx - Neck Details: Neck Supple Neck: Present: normal ROM - Respiratory Respiratory: bilateral: CTA (no increased effort) - Cardiovascular Rhythm: regular Heart sounds: normal: S1, S2 - Gastrointestinal General gastrointestinal: Present: soft, tenderness - Integumentary Integumentary: Present: pale - Neurologic Neurologic Comment(s): No focal Defects Neurologic: Present: CNII-XII intact - Musculoskeletal Musculoskeletal: Present: generalized weakness - Psychiatric Psychiatric: Present: A&O x's 3, appropriate affect - Labs CBC & Chem 7: 02/02/18 05:49 02/02/18 05:49 Labs: Abnormal Lab Results - Last 24 Hours (Table) 02/02/18 02/02/18 Range/Units 05:49 05:49 RBC 2.69 L (3.80-5.40) m/uL Hgb 7.7 L (11.4-16.0) gm/dL Hct 26.0 L (34.0-46.0) % MCHC 29.7 L (31.0-37.0) g/dL Sodium 133 L (137-145) mmol/L Potassium 3.4 L (3.5-5.1) mmol/L Chloride 93 L (98-107) mmol/L Carbon Dioxide 35 H (22-30) mmol/L BUN 20 H (7-17) mg/dL Creatinine 0.50 L (0.52-1.04) mg/dL Glucose 115 H (74-99) mg/dL Calcium 8.1 L (8.4-10.2) mg/dL Magnesium 2.4 H (1.6-2.3) mg/dL Assessment and Plan Plan: Assessment and Recommendations: 1. Metastatic Adenocarcinoma of the Esophagus, Recent Diagnosis - - Was seeing Oncologist out of [facility], no treatment initated at this time, working on increasing overall performancy status and nutrition - Plan will be to have mediport placed during this admission and increase strength, likely discharge to rehabilitation facilities and after rehab will follow-up in office for plan and treatment options for new esophageal diagnosis - I have sent her original pathology for further molecular testing - Will plan follow-up in office in 1-2 weeks, after discharge office 2. Dysphagia - Peg tube 3. Protein calorie malnutrition - Moderate - Peg tube with tube feedings per plant chief 4. Recent DVT - Has been receiving SQ lovenox as outpatient, ok for treatment eliquis or xarelto in place of lovenox 5. Acute systolic heart failure exacerbation, with elevated BNP and evidence of fluid overload both clinically and on x-ray. Started on IV Lasix 40 mg every 8 hours. I would obtain echocardiogram as no recent echo is available for me to review. Cardiology consulted. 6. Normocytic Anemia - - Monitor CBC and transfuse hemoglobin less than 7. - There is component ofr iron deficiency likely from lack of PO intake, If PO iron Supp are difficult for her to tolerate can initiate IV Iron as outpatient after she is discharged from [facility]
--- NOTE | 2018-02-02 14:51 | P.PN ---
Subjective Progress Note Date: 02/02/18 Mrs. Feliciano is a pleasant 77-year-old female being followed closely for chronic persistent atrial fibrillation, acute on chronic systolic heart failure , esophageal cancer with metastasis and cardiomyopathy. She follows with Dr. Grier in the office. Patient diuresed well on IV Lasix, she is currently on oral diuretics at this time. She was seen and examined sitting in chair at bedside. Continues to have at least 2+ peripheral edema. White blood cell count 6.6, hemoglobin 7.4, platelet count 291. Sodium 134, potassium 3.7, BUN 23, creatinine 0.5. 02/02/2018 patient seen and examined this morning, sitting up in the chair. Daughters at bedside. Anticipating discharge home today.pressure 92/40 with a heart rate in the 60s, 99% on room air. Objective - Vital Signs Vital signs: Vital Signs Temp 97.8 F 02/02/18 07:50 Pulse 60 02/02/18 07:50 Resp 16 02/02/18 07:50 BP 92/47 02/02/18 07:50 Pulse Ox 99 02/02/18 07:50 Intake & Output 02/01/18 02/02/18 02/02/18 18:59 06:59 18:59 Intake Total 480 450 Output Total 500 500 Balance -20 -50 Weight 65.5 kg 62.9 kg Intake: Intake, IV Titration 100 Amount Sodium Ferric Gluconat- 100 Sucrose 125 mg In Sodium Chloride 0.9% 100 ml @ 100 mls/hr IVPB DAILY [facility] Rx#:[id number] Tube Feeding 200 450 Other 180 Output: Urine 500 500 Other: Voiding Method Bedside Commode Bedside Commode Bedside Commode - Exam GENERAL: Well-appearing, well-nourished and in no acute distress. NECK: Supple without JVD or thyromegaly. LUNGS: Breath sounds clear to auscultation bilaterally. Respiration equal and unlabored. No wheezes, rales or rhonchi. HEART: Irregular rate and rhythm with systolic ejection murmur at the base, no rubs or gallops. S1 and S2 heard. EXTREMITIES: Normal range of motion, 2-3+ b/l lower extremity edema non- pitting. No clubbing or cyanosis. Peripheral pulses intact. - Labs CBC & Chem 7: 02/02/18 05:49 02/02/18 05:49 Labs: Abnormal Lab Results - Last 24 Hours (Table) 02/02/18 02/02/18 Range/Units 05:49 05:49 RBC 2.69 L (3.80-5.40) m/uL Hgb 7.7 L (11.4-16.0) gm/dL Hct 26.0 L (34.0-46.0) % MCHC 29.7 L (31.0-37.0) g/dL Sodium 133 L (137-145) mmol/L Potassium 3.4 L (3.5-5.1) mmol/L Chloride 93 L (98-107) mmol/L Carbon Dioxide 35 H (22-30) mmol/L BUN 20 H (7-17) mg/dL Creatinine 0.50 L (0.52-1.04) mg/dL Glucose 115 H (74-99) mg/dL Calcium 8.1 L (8.4-10.2) mg/dL Magnesium 2.4 H (1.6-2.3) mg/dL Assessment and Plan Plan: ASSESSMENT #1 Acute on chronic systolic congestive heart failure, improving #2 Chronic persistent atrial fibrillation #3 Esophageal cancer with metastasis #4 Status post biventricular pacemaker insertion #5 Hypokalemia, replaced Plan from cardiology's perspective, we'll continue the patient on her current medication. Anticipating discharge home today. DNP note has been reviewed, I agree with a documented findings and plan of care. Patient was seen and examined.
== END 2018-02-02 13:20 | disposition home health service (06) ==
LOC: EC 14:18 → INTOOBSV 17:23 → 6SEL 17:23 → UNDODISIN 02-02 13:20
PROVIDERS: ADMIT Internal Medicine; ATTEND Internal Medicine
PROC: 0JH63WZ Insertion of Totally Implantable Vascular Access Device into Chest Subcutaneous Tissue and Fascia, Percutaneous Approach (ICD-10-PCS; principal; 2018-01-31 12:00)
DX: I11.0 Hypertensive heart disease with heart failure (principal); I50.23 Acute on chronic systolic (congestive) heart failure; C15.5 Malignant neoplasm of lower third of esophagus; E43 Unspecified severe protein-calorie malnutrition; C78.7 Secondary malignant neoplasm of liver and intrahepatic bile duct; K85.90 Acute pancreatitis without necrosis or infection, unspecified; I48.1 Persistent atrial fibrillation; E87.3 Alkalosis; I48.92 Unspecified atrial flutter; K92.2 Gastrointestinal hemorrhage, unspecified; G40.909 Epilepsy, unspecified, not intractable, without status epilepticus; I48.2 Chronic atrial fibrillation; K59.00 Constipation, unspecified; E78.5 Hyperlipidemia, unspecified; E87.6 Hypokalemia; I25.5 Ischemic cardiomyopathy; I08.3 Combined rheumatic disorders of mitral, aortic and tricuspid valves; G93.40 Encephalopathy, unspecified; E07.9 Disorder of thyroid, unspecified; D64.9 Anemia, unspecified; I82.509 Chronic embolism and thrombosis of unspecified deep veins of unspecified lower extremity; Z93.1 Gastrostomy status; I95.9 Hypotension, unspecified; Z79.01 Long term (current) use of anticoagulants; Z79.82 Long term (current) use of aspirin; Z79.899 Other long term (current) drug therapy; Z79.890 Hormone replacement therapy; Z88.8 Allergy status to other drugs, medicaments and biological substances; Z91.013 Allergy to seafood; Z86.73 Personal history of transient ischemic attack (TIA), and cerebral infarction without residual deficits; Z87.891 Personal history of nicotine dependence; Z90.710 Acquired absence of both cervix and uterus; Z87.01 Personal history of pneumonia (recurrent); Z95.810 Presence of automatic (implantable) cardiac defibrillator; Z80.52 Family history of malignant neoplasm of bladder; Z82.49 Family history of ischemic heart disease and other diseases of the circulatory system; Z83.2 Family history of diseases of the blood and blood-forming organs and certain disorders involving the immune mechanism
CPT/HCPCS: 36561; 96376 ×3; 96365; 96366; 96372 ×2; 96375 ×3; 99285; 36415; 94640; 94760; 95819; 93005; 93306; 97116 ×3; 97161; 97165; 84134; 83880; 80053; 80048 ×5; 80177; 82607; 82728; 82150; 82746; 83540; 83550; 83605; 83690 ×2; 83735 ×6; 85025 ×6; 85027; 85610; 85730; 77001; 71046; 71275; 74177; G0378 ×6; C1788; J2250; J1200; J1642; J1940 ×4; J2930; J2001; J3010; J1650 ×2; J2916 ×2; J2270 ×3; J3475; J3480; J2704; J1953; C9113 ×3; Q9967; 96374

== ENCOUNTER 2018-02-04 17:08 | Inpatient (IN) | payer MEDICARE ==
[2018-02-04] MEDS ORDERED: MORPHINE SULFATE 2 MG/ML SYRINGE IVP STA (18:37)
[2018-02-04] MEDS ORDERED: ONDANSETRON 4 MG/2 ML VIAL IVP STA (18:37)
--- NOTE | 2018-02-04 18:42 | ED ---
General Adult HPI - General Chief complaint: Abdominal Pain Stated complaint: FEEDING TUBE PROBLEM, POSS CHF Time Seen by Provider: 02/04/18 17:20 Source: patient, RN notes reviewed Mode of arrival: wheelchair Limitations: no limitations - History of Present Illness Initial comments: This is a 71-year-old female has a history of esophageal cancer. Patient comes in today because of increased abdominal pain. Patient has been having abdominal pain for last 3 or 4 days it's from the left to the right side diffusely. Patient states the pain got significantly worse this morning and the patient rates it an 8-10 out of 10. Patient has no nausea vomiting patient has no diarrhea. Patient has had no recent fevers. Patient states she also has been noticing some leaking around the PEG tube. Patient denies any chest pain difficulty breathing shortness of breath. Patient denies any injury or trauma. - Related Data Home Medications Medication Instructions Recorded Confirmed Aspirin 81 mg PO DAILY 08/01/14 01/28/18 Levothyroxine Sodium [Synthroid] 100 mcg PO QAM 08/01/14 01/28/18 Sacubitril/Valsartan [Entresto 24 1 each PO BID 12/01/17 01/28/18 mg-26 mg Tablet] Acetaminophen Tab [Tylenol] 325 - 650 mg PO Q4H PRN 01/28/18 01/28/18 Folic Acid 1 mg PO DAILY 01/28/18 01/28/18 Furosemide [Lasix] 40 mg PO BID 01/28/18 01/28/18 Gabapentin [Neurontin] 100 mg PO TID 01/28/18 01/28/18 Hydrocodone/Acetaminophen [Hycet 5 - 10 ml PO Q4HR PRN 01/28/18 01/28/18 7.5 mg-325 mg/15 ml Soln] Omeprazole [PriLOSEC] 20 mg PO [id number] 01/28/18 01/28/18 Thiamine [Vitamin B-1] 100 mg PO DAILY 01/28/18 01/28/18 Previous Rx's Medication Instructions Recorded Spironolactone [Aldactone] 25 mg PO DAILY #30 tab 02/01/18 Metoprolol Tartrate [Lopressor] 12.5 mg PO BID #60 tab 02/02/18 Rivaroxaban [Xarelto] 20 mg PEG/G-TUBE DAILY #30 tab 02/02/18 Allergies Allergy/AdvReac Type Severity Reaction Status Date / Time shellfish derived Allergy Vomiting Verified 02/04/18 17:27 Sstgmgy-Oix-Pix Reductase AdvReac MUSCLE Verified 02/04/18 17:27 Inhibitor PAINS Review of Systems ROS Statement: Those systems with pertinent positive or pertinent negative responses have been documented in the HPI. ROS Other: All systems not noted in ROS Statement are negative. Past Medical History Past Medical History: Atrial Fibrillation, Cancer, Heart Failure, CVA/TIA, Deep Vein Thrombosis (DVT), Pneumonia, Seizure Disorder, Thyroid Disorder Additional Past Medical History / Comment(s): hx difficulty swallowing and keeping solids down specifically meats/had egd w/ bx -positive for esophageal cancer-has had esophageal dilations w/2 stents since removed no chemo or radiation. pt stated pet scan spots on liver. last stroke mar 2011 (rt hand weaker), post stroke seizures last seizure December 2013, pneumonia,bronchitis, uti History of Any Multi-Drug Resistant Organisms: None Reported Past Surgical History: AICD, Bladder Surgery, Cholecystectomy, Hysterectomy Additional Past Surgical History / Comment(s): difibrillator/pacemaker 2016, left chest-[employer]tronic, stent in esaphagus december 2017, feeding tube ,egd/ dilations. stents(since removed) Past Anesthesia/Blood Transfusion Reactions: No Reported Reaction, Family History of Problems w/ Anesthesia Additional Past Anesthesia/Blood Transfusion Reaction / Comment(s): father had anesthesia for bladder bx and did not wake up after surgery at age 80 Type of Cardiac Device: AICD Device Placement Date:: 2016 Past Psychological History: No Psychological Hx Reported Smoking Status: Never smoker Past Alcohol Use History: None Reported Past Drug Use History: None Reported - Past Family History father Family Medical History: Cancer Additional Family Medical History / Comment(s): bladder mother Family Medical History: Congestive Heart Failure (CHF), Deep Vein Thrombosis ( DVT) General Exam - General Exam Comments Initial Comments: GENERAL: Patient is well-developed and well-nourished. Patient is nontoxic and well- hydrated and is in moderate distress. ENT: Neck is soft and supple. No significant lymphadenopathy is noted. Oropharynx is clear. Moist mucous membranes. Neck has full range of motion without eliciting any pain. EYES: The sclera were anicteric and conjunctiva were pink and moist. Extraocular movements were intact and pupils were equal round and reactive to light. Eyelids were unremarkable. PULMONARY: Unlabored respirations. Good breath sounds bilaterally. No audible rales rhonchi or wheezing was noted. CARDIOVASCULAR: There is a regular rate and rhythm without any murmurs gallops or rubs. ABDOMEN: Soft and nontender with normal bowel sounds. No palpable organomegaly was noted. There is no palpable pulsatile mass. SKIN: Skin is clear with no lesions or rashes and otherwise unremarkable. NEUROLOGIC: Patient is alert and oriented x3. Cranial nerves II through XII are grossly intact. Motor and sensory are also intact. Normal speech, volume and content. Symmetrical smile. MUSCULOSKELETAL: Normal extremities with adequate strength and full range of motion. 2+ edema bilaterally LYMPHATICS: No significant lymphadenopathy is noted PSYCHIATRIC: Normal psychiatric evaluation. Limitations: no limitations Course Vital Signs 02/04/18 02/04/18 02/04/18 17:22 19:27 21:00 Temperature 98.3 F 98.9 F Pulse Rate 74 61 88 Respiratory 18 20 20 Rate Blood Pressure 100/66 111/55 99/56 O2 Sat by Pulse 99 98 99 Oximetry Medical Decision Making - Medical Decision Making I recommended we get a CAT scan family and patient did not want a CAT scan they stated she had too many CAT scans. I told him that the effects are typically years out and not acutely they still refused Patient eventually agreed to the CAT scan I get a CAT scan of the abdomen showed that the PEG tube is not a place it showed that there was metastatic liver disease unchanged. Showed bilateral pleural effusions unchanged. It also showed some decrease in pelvic fluid. His spoke with Dr. Potter and he agreed to admit the patient admitted the patient I wrote admitting orders. I counseled the Dr. Jones - Lab Data Result diagrams: 02/04/18 19:15 02/04/18 19:15 Lab Results 02/04/18 02/04/18 02/04/18 Range/Units 19:15 19:15 19:15 WBC 10.5 (3.8-10.6) k/uL RBC 3.21 L (3.80-5.40) m/uL Hgb 8.9 L (11.4-16.0) gm/dL Hct 30.6 L (34.0-46.0) % MCV 95.4 (80.0-100.0) fL MCH 27.8 (25.0-35.0) pg MCHC 29.2 L (31.0-37.0) g/dL RDW 15.9 H (11.5-15.5) % Plt Count 317 (150-450) k/uL Neutrophils % 70 % Lymphocytes % 20 % Monocytes % 6 % Eosinophils % 0 % Basophils % 0 % Neutrophils # 7.4 (1.3-7.7) k/uL Lymphocytes # 2.1 (1.0-4.8) k/uL Monocytes # 0.7 (0-1.0) k/uL Eosinophils # 0.1 (0-0.7) k/uL Basophils # 0.0 (0-0.2) k/uL Hypochromasia Marked Sodium 134 L (137-145) mmol/L Potassium 4.9 (3.5-5.1) mmol/L Chloride 99 (98-107) mmol/L Carbon Dioxide 25 (22-30) mmol/L Anion Gap 10 mmol/L BUN 23 H (7-17) mg/dL Creatinine 0.50 L (0.52-1.04) mg/dL Est GFR (CKD-EPI)AfAm >90 (>60 ml/min/1.73 sqM) Est GFR (CKD-EPI)NonAf >90 (>60 ml/min/1.73 sqM) Glucose 95 (74-99) mg/dL Plasma Lactic Acid Vish 1.4 (0.7-2.0) mmol/L Calcium 8.8 (8.4-10.2) mg/dL Total Bilirubin 0.5 (0.2-1.3) mg/dL AST 55 H (14-36) U/L ALT 41 (9-52) U/L Alkaline Phosphatase 131 H (38-126) U/L Total Protein 6.8 (6.3-8.2) g/dL Albumin 3.1 L (3.5-5.0) g/dL Amylase 117 H (30-110) U/L Lipase 620 H (23-300) U/L Urine Color Urine Appearance (Clear) Urine pH (5.0-8.0) Ur Specific [place] (1.001-1.035) Urine Protein (Negative) Urine Glucose (UA) (Negative) Urine Ketones (Negative) Urine Blood (Negative) Urine Nitrite (Negative) Urine Bilirubin (Negative) Urine Urobilinogen (<2.0) mg/dL Ur Leukocyte Esterase (Negative) Urine RBC (0-5) /hpf Urine WBC (0-5) /hpf Urine WBC Clumps (None) /hpf Ur Squamous Epith Cells (0-4) /hpf Urine Bacteria (None) /hpf 02/04/18 Range/Units 19:31 WBC (3.8-10.6) k/uL RBC (3.80-5.40) m/uL Hgb (11.4-16.0) gm/dL Hct (34.0-46.0) % MCV (80.0-100.0) fL MCH (25.0-35.0) pg MCHC (31.0-37.0) g/dL RDW (11.5-15.5) % Plt Count (150-450) k/uL Neutrophils % % Lymphocytes % % Monocytes % % Eosinophils % % Basophils % % Neutrophils # (1.3-7.7) k/uL Lymphocytes # (1.0-4.8) k/uL Monocytes # (0-1.0) k/uL Eosinophils # (0-0.7) k/uL Basophils # (0-0.2) k/uL Hypochromasia Sodium (137-145) mmol/L Potassium (3.5-5.1) mmol/L Chloride (98-107) mmol/L Carbon Dioxide (22-30) mmol/L Anion Gap mmol/L BUN (7-17) mg/dL Creatinine (0.52-1.04) mg/dL Est GFR (CKD-EPI)AfAm (>60 ml/min/1.73 sqM) Est GFR (CKD-EPI)NonAf (>60 ml/min/1.73 sqM) Glucose (74-99) mg/dL Plasma Lactic Acid Vish (0.7-2.0) mmol/L Calcium (8.4-10.2) mg/dL Total Bilirubin (0.2-1.3) mg/dL AST (14-36) U/L ALT (9-52) U/L Alkaline Phosphatase (38-126) U/L Total Protein (6.3-8.2) g/dL Albumin (3.5-5.0) g/dL Amylase (30-110) U/L Lipase (23-300) U/L Urine Color Yellow Urine Appearance Cloudy H (Clear) Urine pH 8.5 H (5.0-8.0) Ur Specific [place] 1.013 (1.001-1.035) Urine Protein 1+ H (Negative) Urine Glucose (UA) Negative (Negative) Urine Ketones Negative (Negative) Urine Blood Negative (Negative) Urine Nitrite Positive H (Negative) Urine Bilirubin Negative (Negative) Urine Urobilinogen 3.0 (<2.0) mg/dL Ur Leukocyte Esterase Large H (Negative) Urine RBC 2 (0-5) /hpf Urine WBC 116 H (0-5) /hpf Urine WBC Clumps Rare H (None) /hpf Ur Squamous Epith Cells <1 (0-4) /hpf Urine Bacteria Occasional H (None) /hpf Disposition Clinical Impression: Dislodged gastrostomy tube, Urinary tract infection, Dehydration, Abdominal pain, Pancreatitis Disposition: ADMITTED IP TO THIS HOSP Is patient prescribed a controlled substance at d/c from ED?: No Referrals: Taina Ramirez MD [Primary Care Provider] - 1-2 days Time of Disposition: 21:20
[2018-02-04 19:30] LABS: Basophils % (A) 0 %; Eosinophils # (A) 0.1 k/uL (0-0.7); Eosinophils % (A) 0 %; HCT 30.6 % (34.0-46.0); HGB 8.9 gm/dL (11.4-16.0); Hypochromasia Marked; Lymphocytes # (A) 2.1 k/uL (1.0-4.8); Lymphocytes % (A) 20 %; MCH 27.8 pg (25.0-35.0); MCHC 29.2 g/dL (31.0-37.0); MCV 95.4 fL (80.0-100.0); Mean Platelet Volume 8.5; Monocytes # (A) 0.7 k/uL (0-1.0); Monocytes % (A) 6 %; Neutrophils # (A) 7.4 k/uL (1.3-7.7); Neutrophils % (A) 70 %; Platelet Count 317 k/uL (150-450); RBC 3.21 m/uL (3.80-5.40); RDW 15.9 % (11.5-15.5); WBC 10.5 k/uL (3.8-10.6)
[2018-02-04 19:49] LABS: Appearance,Urine Cloudy (Clear); Bacteria,Urine Occasional /hpf; Bilirubin,Urine Negative (Negative); Blood,Urine Negative (Negative); Color,Urine Yellow; Glucose,Urine (UA) Negative (Negative); Ketones,Urine Negative (Negative); Leukocyte Esterase,Urine Large (Negative); Nitrite,Urine Positive (Negative); PH, Urine 8.5 (5.0-8.0); Protein,Urine 1+ (Negative); RBC,Urine 2 /hpf (0-5); Specific Gravity,Urine 1.013 (1.001-1.035); Squamous Epithelial Cell,Urine <1 /hpf (0-4); WBC,Urine 116 /hpf (0-5)
[2018-02-04 20:18] LABS: ALT 41 U/L (9-52); AST 55 U/L (14-36); Albumin 3.1 g/dL (3.5-5.0); Alkaline Phosphatase 131 U/L (38-126); Amylase 117 U/L (30-110); Anion Gap 10 mmol/L; Blood Urea Nitrogen 23 mg/dL (7-17); Calcium 8.8 mg/dL (8.4-10.2); Carbon Dioxide 25 mmol/L (22-30); Chloride 99 mmol/L (98-107); Glucose 95 mg/dL (74-99); Lipase 620 U/L (23-300); Potassium 4.9 mmol/L (3.5-5.1); Sodium 134 mmol/L (137-145); Total Bilirubin 0.5 mg/dL (0.2-1.3); Total Protein 6.8 g/dL (6.3-8.2)
[2018-02-04] MEDS ORDERED: cefTRIAXone 2,000 MG in SODIUM CHLORIDE 0.9% 100 ML IVPB STA (20:26)
[2018-02-04] MEDS ORDERED: cefTRIAXone IN SWFI 2,000 MG/20 ML SYRINGE IVP STA (20:27)
--- NOTE | 2018-02-04 20:51 | CT ---
EXAMINATION TYPE: CT abdomen pelvis w con DATE OF EXAM: 02/04/2018 COMPARISON: 01/28/2018 HISTORY: Abdominal pain around PEG tube. CT DLP: 607.6 mGycm Automated exposure control for dose reduction was used. TECHNIQUE: Helical acquisition of images was performed from the lung bases through the pelvis. CONTRAST: Performed without Oral Contrast and with IV Contrast, patient injected with 100ml mL of Isovue 300. FINDINGS: There are bilateral pleural effusions and larger on the left side. Heart is enlarged. There is a hiat al hernia. There is gastrostomy tube noted. The gastrostomy tube appears to be malpositioned and the tip is in the anterior abdominal wall. Tip is not in the stomach. There is a 2 cm poorly marginated area of hypodensity in the anterior left lobe of the liver. There a re other smaller hypodense foci in the liver. Spleen appears normal. There is no pancreatic mass. Bile ducts are not dilated. There is no adrenal m ass. Kidneys show satisfactory contrast opacification. There is no hydronephrosis. Bladder distends s moothly. There is no pelvic mass. There is no evidence of a bowel obstruction. There is some infiltra te and atelectasis in the left lower lobe and to lesser extent the right lower lobe. Lumbar spine ty ears intact. IMPRESSION: THERE IS MALPOSITION OF THE GASTROSTOMY TUBE. MULTIPLE HYPODENSE LIVER LESIONS SUGGESTIVE OF METASTATIC DISEASE APPEAR NOT SIGNIFICANTLY DIFFERENT. THERE IS CLEARING OF THE FLUID IN THE PELVIS COMPARED TO OLD EXAM. THERE IS DECREASE IN RIGHT PLEURAL EFFUSION COMPARED TO OLD EXAM. THERE ARE BILATERAL PLEURAL EFFUSIONS WITH BASILAR PULMONARY INFILTRA VERONIQUE AND ATELECTASIS.
[2018-02-04] MEDS ORDERED: SODIUM CHLORIDE 0.9% 1,000 ML IV ONE (21:21)
[2018-02-04] MEDS ORDERED: ONDANSETRON 4 MG/2 ML VIAL IVP PRN (21:30)
[2018-02-05] MEDS ORDERED: NALOXONE 0.4 MG/ML 1 ML VIAL IV PRN (00:57)
--- NOTE | 2018-02-05 01:29 | P.HPIM ---
History of Present Illness H&P Date: 02/04/18 Chief Complaint: acute abd pain patient was seen on 02/04/2018 in the ED , but due to technical difficulties with the computer system, charting was not performed until 02/05/2018 @1 am. Thorough chart review was performed. Seems like patient was admitted few days ago and discharged on February 02. She was admitted for acute CHF exacerbation. During that hospital course patient was diuresed and a repeat 2-D echocardiogram revealed left ventricular ejection fraction of 30%. She also known to have esophageal cancer with metastases to the liver and a PEG tube for nutrition and medication menstruation. Patient also known to have chronic lower extremity DVT and A. fib for which she is on Xarelto. There was also suspicion of breakthrough seizure during her last hospitalization however EEG did not reveal any epileptiform activity. She continues to be on Keppra. She was also found to have some mild pancreatitis which was resolved with supportive care. Today patient is presenting due to sudden onset epigastric abdominal pain that started afternoon she described it as dull achy pain 8-10 out of 10 in severity mainly in the epigastric region which radiated to the back with movement. Family also noticed some leakage around the PEG tube and noted that the PEG tube is abnormally looking and positioned for which they decided to bring her to the hospital for further evaluation. Otherwise patient denies any nausea or vomiting denies any fevers chills denies any diarrhea or changes in her bowel habits. She does complain of burning upon urinating. Again denies any fevers or chills. In the emergency department thorough workup was performed which showed possible urinary tract infection, elevated amylase and lipase, lipase is up to the admission level upon her last presentation which is around 600. CAT scan of the abdomen showed that the PEG tube is not in place. For which patient is admitted for further workup and evaluation by surgery. Family was not at bedside at the time of interview Patient otherwise feeling fine other than her epigastric abdominal pain Review of Systems Pertinent positives as noted in HPI. All other systems were reviewed and are negative Past Medical History Past Medical History: Atrial Fibrillation, Cancer, Heart Failure, CVA/TIA, Deep Vein Thrombosis (DVT), Pneumonia, Seizure Disorder, Thyroid Disorder Additional Past Medical History / Comment(s): hx difficulty swallowing and keeping solids down specifically meats/had egd w/ bx -positive for esophageal cancer-has had esophageal dilations w/2 stents since removed no chemo or radiation. pt stated pet scan spots on liver. last stroke mar 2011 (rt hand weaker), post stroke seizures last seizure December 2013, pneumonia,bronchitis, uti History of Any Multi-Drug Resistant Organisms: None Reported Past Surgical History: AICD, Bladder Surgery, Cholecystectomy, Hysterectomy Additional Past Surgical History / Comment(s): difibrillator/pacemaker 2016, left chest-[employer]tr[employer], stent in esaphagus december 2017, feeding tube ,egd/ dilations. stents(since removed) Past Anesthesia/Blood Transfusion Reactions: No Reported Reaction, Family History of Problems w/ Anesthesia Additional Past Anesthesia/Blood Transfusion Reaction / Comment(s): father had anesthesia for bladder bx and did not wake up after surgery at age 80 Type of Cardiac Device: AICD Device Placement Date:: 2016 Past Psychological History: No Psychological Hx Reported Additional Psychological History / Comment(s): pt lives with spouse,grand daughter nad her spouse and great grand daughter. pt receiving home care services pt stated either [facility] or [facility] not sure which. has hospital bed, walker, bsc, raised toilet seat w bars. Smoking Status: Never smoker Past Alcohol Use History: None Reported Additional Past Alcohol Use History / Comment(s): when asked if pt ever smoked pt stated no -never smoked Past Drug Use History: None Reported - Past Family History father Family Medical History: Cancer Additional Family Medical History / Comment(s): bladder mother Family Medical History: Congestive Heart Failure (CHF), Deep Vein Thrombosis ( DVT) Medications and Allergies Home Medications Medication Instructions Recorded Confirmed Type Aspirin 81 mg PEG/G-TUBE DAILY 08/01/14 02/04/18 History Levothyroxine Sodium [Synthroid] 100 mcg PEG/G-TUBE QAM 08/01/14 02/04/18 History Sacubitril/Valsartan [Entresto 24 1 tab PEG/G-TUBE BID 12/01/17 02/04/18 History mg-26 mg Tablet] Acetaminophen Tab [Tylenol] 325 - 650 mg PEG/G-TUBE Q4H PRN 01/28/18 02/04/18 History Folic Acid 1 mg PEG/G-TUBE DAILY 01/28/18 02/04/18 History Furosemide [Lasix] 40 mg PEG/G-TUBE BID 01/28/18 02/04/18 History Gabapentin [Neurontin] 100 mg PEG/G-TUBE BID 01/28/18 02/04/18 History Omeprazole [PriLOSEC] 20 mg PEG/G-TUBE DAILY 01/28/18 02/04/18 History Thiamine [Vitamin B-1] 100 mg PEG/G-TUBE DAILY 01/28/18 02/04/18 History Rivaroxaban [Xarelto] 20 mg PEG/G-TUBE DAILY #30 tab 02/02/18 02/04/18 Rx Metoprolol Tartrate [Lopressor] 12.5 mg PEG/G-TUBE BID 02/04/18 02/04/18 History Sennosides [Senna] 8.6 mg PEG/G-TUBE DAILY PRN 02/04/18 02/04/18 History Spironolactone [Aldactone] 25 mg PEG/G-TUBE DAILY 02/04/18 02/04/18 History levETIRAcetam [Keppra Oral 1,000 mg PEG/G-TUBE Q12H 02/04/18 02/04/18 History Solution] Allergies Allergy/AdvReac Type Severity Reaction Status Date / Time shellfish derived Allergy Vomiting Verified 02/04/18 21:33 Nhpbblc-Dir-Olc Reductase AdvReac MUSCLE Verified 02/04/18 21:33 Inhibitor PAINS Physical Exam Vitals: Vital Signs Temp Pulse Resp BP Pulse Ox 02/04/18 23:40 99.5 F 20 02/04/18 22:58 98.9 F 72 20 99/57 100 02/04/18 22:15 98.6 F 81 20 100/56 99 02/04/18 21:00 98.9 F 88 20 99/56 99 02/04/18 19:27 61 20 111/55 98 02/04/18 17:22 98.3 F 74 18 100/66 99 Intake and Output 02/04/18 02/04/18 02/05/18 14:59 22:59 06:59 Other: Weight 63.503 kg Constitutional: No acute distress, conversant, pleasant Eyes: Anicteric sclerae, moist conjunctiva, no lid-lag Pupils equal round reactive to light ENMT: NC/AT Oropharynx clear, no erythema, or exudates Neck: Supple, FROM, no masses, or JVD No carotid bruits No thyromegaly Lungs: Good breath sounds bilaterally clear to auscultation Clear to percussion Normal respiratory effort, no accessory muscle use Cardiovascular: Heart regular in rate and rhythm, Positive systolic murmurs, no gallops, or rubs Plus 23 peripheral edema Abdominal: Soft, tenderness to palpation of the epigastric region, firm mass palpable subcutaneously over the epigastric region surrounding the tube insertion area, skin surrounding the PEG tube insertion area looks dry and clean no drainage. PEG tube in the left subcostal region Tenderness to palpation around the PEG tube where the firm cutaneous masses felt and over the epigastric region, with voluntary guarding, no rebound or rigidity Abdomen moving with respiration Normoactive bowel sounds No hepatomegaly, No splenomegaly appreciated No palpable mass No abdominal wall hernia noted Skin: Normal temperature, tone, texture, turgor No induration No subcutaneous nodules No rash, lesions Stage II pressure ulcer over the coccyx Extremities: No digital cyanosis No clubbing Pedal pulses intact and symmetrical Radial pulses intact and symmetrical No calf tenderness Psychiatric: Alert and oriented to person, place Appropriate affect fair judgment Neuro Muscles Strength 3-4/5 in all 4 extremities Sensation to light touch grossly present throughout Cranial nerves II-XII grossly intact No focal sensory deficits Lymphatics: no palpable cervical or supraclavicular , or inguinal lymph nodes Results CBC & Chem 7: 02/04/18 19:15 02/04/18 19:15 Labs: Abnormal Lab Results - Last 24 Hours (Table) 02/04/18 02/04/18 02/04/18 Range/Units 19:15 19:15 19:31 RBC 3.21 L (3.80-5.40) m/uL Hgb 8.9 L (11.4-16.0) gm/dL Hct 30.6 L (34.0-46.0) % MCHC 29.2 L (31.0-37.0) g/dL RDW 15.9 H (11.5-15.5) % Sodium 134 L (137-145) mmol/L BUN 23 H (7-17) mg/dL Creatinine 0.50 L (0.52-1.04) mg/dL AST 55 H (14-36) U/L Alkaline Phosphatase 131 H (38-126) U/L Albumin 3.1 L (3.5-5.0) g/dL Amylase 117 H (30-110) U/L Lipase 620 H (23-300) U/L Urine Appearance Cloudy H (Clear) Urine pH 8.5 H (5.0-8.0) Urine Protein 1+ H (Negative) Urine Nitrite Positive H (Negative) Ur Leukocyte Esterase Large H (Negative) Urine WBC 116 H (0-5) /hpf Urine WBC Clumps Rare H (None) /hpf Urine Bacteria Occasional H (None) /hpf Thrombosis Risk Factor Assmnt - Choose All That Apply Each Factor Represents 1 point: Heart failure (<1month), Swollen legs (current) Each Risk Factor Represents 3 Points: Age 75 years or older Other congenital or acquired thrombophilia - If yes, enter type in comment: No Thrombosis Risk Factor Assessment Total Risk Factor Score: 5 Thrombosis Risk Factor Assessment Level: High Risk Assessment and Plan Assessment: 77-year-old female with history of systolic congestive heart failure, A. fib, metastatic esophageal cancer to the liver, status post PEG tube admitted to the hospital as an inpatient with anticipated length of stay of more than 48 hours due to acute mild pancreatitis and dislodgment of the PEG tube for surgical evaluation and further management. Plan: Mild acute pancreatitis recurrent Gentle hydration continue normal saline at 100 mL/h due to history of congestive heart failure Follow-up labs Pain control with morphine Nothing by mouth Follow-up lipase PEG tube malfunction Computed tomography scan showed misplaced PEG tube Surgery consultation Hold by mouth intake and PEG tube feeding Hold medications due to PEG tube malfunction History of seizures Switch Keppra to IV Urinary tract infection, no chronic Diehl Rocephin Follow-up cultures Stage II decub ulcer on the coccyx present on admission Local wound care Chronic conditions that are stable at this admission Systolic CHF with left ventricular ejection fraction of 30% Chronic lower extremity DVT A. fib on Xarelto Esophageal cancer with metastases to the liver Currently patient medications are held due to PEG malfunction DVT prophylaxis, avoid pharmacologic DVT prophylaxis due to possible intervention in the morning for PEG tube malfunction Antiembolic compression stocking Preformed a thorough record review from recent hospitalization as summarized in HPI Surrogate decision-maker: Patient daughter Andreina CODE STATUS: Full code Discussed with: Patient, ER, RN Anticipated discharge: 48-[address]: Home A total of 60 minutes was spent on the care of this complex patient more than 50 % of the time was spent in counseling and care coordination.
[2018-02-05] MEDS: MORPHINE SULFATE 2 MG/ML SYRINGE IVP PRN ×3 (03:55→21:58)
[2018-02-05] MEDS: levETIRAcetam IV 1,000 MG in SALINE 1 100ML.BAG IVPB SCH ×2 (07:56→21:21)
[2018-02-05] MEDS: cefTRIAXone IN SWFI 1,000 MG/10 ML SYRINGE IVP SCH (07:57)
[2018-02-05 08:14] LABS: Anisocytosis Slight; Basophils % (A) 0 %; Eosinophils # (A) 0.1 k/uL (0-0.7); Eosinophils % (A) 1 %; HGB 7.6 gm/dL (11.4-16.0); Hypochromasia Marked; Lymphocytes # (A) 1.8 k/uL (1.0-4.8); Lymphocytes % (A) 23 %; MCH 30.1 pg (25.0-35.0); MCHC 30.4 g/dL (31.0-37.0); MCV 99.1 fL (80.0-100.0); Macrocytosis Slight; Mean Platelet Volume 9.4; Monocytes # (A) 0.5 k/uL (0-1.0); Monocytes % (A) 6 %; Neutrophils # (A) 5.4 k/uL (1.3-7.7); Neutrophils % (A) 68 %; Platelet Count 264 k/uL (150-450); RBC 2.52 m/uL (3.80-5.40); RDW 16.6 % (11.5-15.5); WBC 7.9 k/uL (3.8-10.6)
[2018-02-05 08:47] LABS: ALT 41 U/L (9-52); AST 35 U/L (14-36); Albumin 2.4 g/dL (3.5-5.0); Alkaline Phosphatase 99 U/L (38-126); Amylase 91 U/L (30-110); Anion Gap 4 mmol/L; Blood Urea Nitrogen 21 mg/dL (7-17); Calcium 8.2 mg/dL (8.4-10.2); Carbon Dioxide 28 mmol/L (22-30); Chloride 102 mmol/L (98-107); Glucose 80 mg/dL (74-99); Lipase 499 U/L (23-300); Potassium 4.6 mmol/L (3.5-5.1); Sodium 134 mmol/L (137-145); Total Bilirubin 0.3 mg/dL (0.2-1.3); Total Protein 5.5 g/dL (6.3-8.2)
[2018-02-05 10:00] VITALS: BMI 27.3
[2018-02-05] MEDS ORDERED: PROPOFOL 10 MG/ML 20 ML VIAL IV ONE (11:28)
[2018-02-05] MEDS ORDERED: LIDOCAINE 1% INJ 10MG/ML (20 ML MDV) ONE (11:28)
[2018-02-05] MEDS ORDERED: SODIUM CHLORIDE 0.9% 900 ML IV ONE (11:35)
--- NOTE | 2018-02-05 12:09 | P.GSCN ---
History of Present Illness Consult date: 02/05/18 Reason for Consult: Malfunctioning PEG tube History of present illness: Patient well-known to our service. Yesterday the family noticed that there was formed the that had leaked around the outside of the PEG tube. There was pain there also with flushing of the catheter. CAT scan was performed and showed the hub of the catheter in the subcutaneous tissues. Review of Systems The patient denies any acute changes in vision or hearing, no shortness of breath, no dysuria or hematuria, no headache, no runny nose, no rectal bleeding or melena, no unexplained weight loss Past Medical History Past Medical History: Atrial Fibrillation, Cancer, Heart Failure, CVA/TIA, Deep Vein Thrombosis (DVT), Pneumonia, Seizure Disorder, Thyroid Disorder Additional Past Medical History / Comment(s): hx difficulty swallowing and keeping solids down specifically meats/had egd w/ bx -positive for esophageal cancer-has had esophageal dilations w/2 stents since removed no chemo or radiation. pt stated pet scan spots on liver. last stroke mar 2011 (rt hand weaker), post stroke seizures last seizure December 2013, pneumonia,bronchitis, uti History of Any Multi-Drug Resistant Organisms: None Reported Past Surgical History: AICD, Bladder Surgery, Cholecystectomy, Hysterectomy Additional Past Surgical History / Comment(s): difibrillator/pacemaker 2016, left chest-Medtronic, stent in esaphagus december 2017, feeding tube ,egd/ dilations. stents(since removed) Past Anesthesia/Blood Transfusion Reactions: No Reported Reaction, Family History of Problems w/ Anesthesia Additional Past Anesthesia/Blood Transfusion Reaction / Comm: father had anesthesia for bladder bx and did not wake up after surgery at age 80 Type of Cardiac Device: AICD Device Placement Date:: 2016 Past Psychological History: No Psychological Hx Reported Additional Psychological History / Comment(s): pt lives with spouse,grand daughter nad her spouse and great grand daughter. pt receiving home care services pt stated either [facility] or [facility] not sure which. has hospital bed, walker, bsc, raised toilet seat w bars. Smoking Status: Never smoker Past Alcohol Use History: None Reported Additional Past Alcohol Use History / Comment(s): when asked if pt ever smoked pt stated no -never smoked Past Drug Use History: None Reported - Past Family History father Family Medical History: Cancer Additional Family Medical History / Comment(s): bladder mother Family Medical History: Congestive Heart Failure (CHF), Deep Vein Thrombosis ( DVT) Medications and Allergies Home Medications Medication Instructions Recorded Confirmed Type Aspirin 81 mg PEG/G-TUBE DAILY 08/01/14 02/04/18 History Levothyroxine Sodium [Synthroid] 100 mcg PEG/G-TUBE QAM 08/01/14 02/04/18 History Sacubitril/Valsartan [Entresto 24 1 tab PEG/G-TUBE BID 12/01/17 02/04/18 History mg-26 mg Tablet] Acetaminophen Tab [Tylenol] 325 - 650 mg PEG/G-TUBE Q4H PRN 01/28/18 02/04/18 History Folic Acid 1 mg PEG/G-TUBE DAILY 01/28/18 02/04/18 History Furosemide [Lasix] 40 mg PEG/G-TUBE BID 01/28/18 02/04/18 History Gabapentin [Neurontin] 100 mg PEG/G-TUBE BID 01/28/18 02/04/18 History Omeprazole [PriLOSEC] 20 mg PEG/G-TUBE DAILY 01/28/18 02/04/18 History Thiamine [Vitamin B-1] 100 mg PEG/G-TUBE DAILY 01/28/18 02/04/18 History Rivaroxaban [Xarelto] 20 mg PEG/G-TUBE DAILY #30 tab 02/02/18 02/04/18 Rx Metoprolol Tartrate [Lopressor] 12.5 mg PEG/G-TUBE BID 02/04/18 02/04/18 History Sennosides [Senna] 8.6 mg PEG/G-TUBE DAILY PRN 02/04/18 02/04/18 History Spironolactone [Aldactone] 25 mg PEG/G-TUBE DAILY 02/04/18 02/04/18 History levETIRAcetam [Keppra Oral 1,000 mg PEG/G-TUBE Q12H 02/04/18 02/04/18 History Solution] Allergies Allergy/AdvReac Type Severity Reaction Status Date / Time shellfish derived Allergy Vomiting Verified 02/04/18 21:33 Jyxwyfb-Sxa-Pcc Reductase AdvReac MUSCLE Verified 02/04/18 21:33 Inhibitor PAINS Surgical - Exam Vital Signs Temp Pulse Resp BP Pulse Ox 98.3 F 74 18 100/66 99 02/04/18 17:22 08/02/18 17:22 02/04/18 17:22 02/04/18 17:22 02/04/18 17:22 Physical exam: General: Well-developed, well-nourished HEENT: Normocephalic, sclerae nonicteric Abdomen: Nontender, nondistended, PEG tube intact with mild tenderness in the bolsters only had about 2 cm Extremities: No edema Neuro: Alert and oriented Results - Labs 02/05/18 07:31 02/05/18 07:27 Abnormal Lab Results - Last 24 Hours (Table) 02/04/18 02/04/18 02/04/18 Range/Units 19:15 19:15 19:31 RBC 3.21 L (3.80-5.40) m/uL Hgb 8.9 L (11.4-16.0) gm/dL Hct 30.6 L (34.0-46.0) % MCHC 29.2 L (31.0-37.0) g/dL RDW 15.9 H (11.5-15.5) % Sodium 134 L (137-145) mmol/L BUN 23 H (7-17) mg/dL Creatinine 0.50 L (0.52-1.04) mg/dL Calcium (8.4-10.2) mg/dL AST 55 H (14-36) U/L Alkaline Phosphatase 131 H (38-126) U/L Total Protein (6.3-8.2) g/dL Albumin 3.1 L (3.5-5.0) g/dL Amylase 117 H (30-110) U/L Lipase 620 H (23-300) U/L Urine Appearance Cloudy H (Clear) Urine pH 8.5 H (5.0-8.0) Urine Protein 1+ H (Negative) Urine Nitrite Positive H (Negative) Ur Leukocyte Esterase Large H (Negative) Urine WBC 116 H (0-5) /hpf Urine WBC Clumps Rare H (None) /hpf Urine Bacteria Occasional H (None) /hpf 02/05/18 02/05/18 Range/Units 07:27 07:31 RBC 2.52 L (3.80-5.40) m/uL Hgb 7.6 L (11.4-16.0) gm/dL Hct 25.0 L (34.0-46.0) % MCHC 30.4 L (31.0-37.0) g/dL RDW 16.6 H (11.5-15.5) % Sodium 134 L (137-145) mmol/L BUN 21 H (7-17) mg/dL Creatinine (0.52-1.04) mg/dL Calcium 8.2 L (8.4-10.2) mg/dL AST (14-36) U/L Alkaline Phosphatase (38-126) U/L Total Protein 5.5 L (6.3-8.2) g/dL Albumin 2.4 L (3.5-5.0) g/dL Amylase (30-110) U/L Lipase 499 H (23-300) U/L Urine Appearance (Clear) Urine pH (5.0-8.0) Urine Protein (Negative) Urine Nitrite (Negative) Ur Leukocyte Esterase (Negative) Urine WBC (0-5) /hpf Urine WBC Clumps (None) /hpf Urine Bacteria (None) /hpf Diabetes panel 02/04/18 02/05/18 Range/Units 19:15 07:27 Sodium 134 L 134 L (137-145) mmol/L Potassium 4.9 4.6 (3.5-5.1) mmol/L Chloride 99 102 (98-107) mmol/L Carbon Dioxide 25 28 (22-30) mmol/L BUN 23 H 21 H (7-17) mg/dL Creatinine 0.50 L 0.52 (0.52-1.04) mg/dL Glucose 95 80 (74-99) mg/dL Calcium 8.8 8.2 L (8.4-10.2) mg/dL AST 55 H 35 (14-36) U/L ALT 41 41 (9-52) U/L Alkaline Phosphatase 131 H 99 (38-126) U/L Total Protein 6.8 5.5 L (6.3-8.2) g/dL Albumin 3.1 L 2.4 L (3.5-5.0) g/dL Calcium panel 02/04/18 02/05/18 Range/Units 19:15 07:27 Calcium 8.8 8.2 L (8.4-10.2) mg/dL Albumin 3.1 L 2.4 L (3.5-5.0) g/dL Pituitary panel 02/04/18 02/05/18 Range/Units 19:15 07:27 Sodium 134 L 134 L (137-145) mmol/L Potassium 4.9 4.6 (3.5-5.1) mmol/L Chloride 99 102 (98-107) mmol/L Carbon Dioxide 25 28 (22-30) mmol/L BUN 23 H 21 H (7-17) mg/dL Creatinine 0.50 L 0.52 (0.52-1.04) mg/dL Glucose 95 80 (74-99) mg/dL Calcium 8.8 8.2 L (8.4-10.2) mg/dL Adrenal panel 02/04/18 02/05/18 Range/Units 19:15 07:27 Sodium 134 L 134 L (137-145) mmol/L Potassium 4.9 4.6 (3.5-5.1) mmol/L Chloride 99 102 (98-107) mmol/L Carbon Dioxide 25 28 (22-30) mmol/L BUN 23 H 21 H (7-17) mg/dL Creatinine 0.50 L 0.52 (0.52-1.04) mg/dL Glucose 95 80 (74-99) mg/dL Calcium 8.8 8.2 L (8.4-10.2) mg/dL Total Bilirubin 0.5 0.3 (0.2-1.3) mg/dL AST 55 H 35 (14-36) U/L ALT 41 41 (9-52) U/L Alkaline Phosphatase 131 H 99 (38-126) U/L Total Protein 6.8 5.5 L (6.3-8.2) g/dL Albumin 3.1 L 2.4 L (3.5-5.0) g/dL Assessment and Plan (1) Dislodged gastrostomy tube Narrative/Plan: Will proceed with upper endoscopy with PEG tube replacement Current Visit: Yes Status: Acute Code(s): Z43.1 - ENCOUNTER FOR ATTENTION TO GASTROSTOMY SNOMED Code(s): 390688430
--- NOTE | 2018-02-05 12:11 | P.PCN ---
Procedure(s) Performed: PREOPERATIVE DIAGNOSIS: Malnutrition, PEG tube malfunction POSTOPERATIVE DIAGNOSIS: Same PROCEDURE: EGD with PEG tube replacement SURGEON: Karen EBL: Minimal ANESTHESIA: Sedation COMPLICATIONS: None OPERATIVE PROCEDURE: The patient was placed in the supine position on the endoscopy table. The patient was sedated per anesthesia that time. The previous PEG tube was removed without difficulty. This was very superficial and the abdominal wall. A new 18-[place] catheter balloon CHICHO tube was advanced into the stomach. For confirmation the Olympus gastroscope was inserted into the oropharynx and passed under direct visualization to the region of the duodenum. No obstruction was seen. The pylorus was widely patent. The stomach was carefully inspected. The stomach was fully insufflated with air. Catheter was noted to be entering the stomach appropriate. There was no large ulceration or significant inflammatory change around the entrance site of the tube. The balloon was filled to 10 mL and the bolster was tightened loosely at 5 cm. The patient's esophageal tumor did have some residual stricture formation but we were able to pass our pediatric gastroscope fairly easily through that area. A dressing was applied at the gastrostomy site. DISPOSITION: Stable to recovery room
--- NOTE | 2018-02-05 13:58 | P.PN ---
Subjective Progress Note Date: 02/05/18 Principal diagnosis: Malfunctioning PEG tube, Recurrent pancreatitis Patient was seen and examined after procedure. States is in alot of pain, waxing and waning. No nausea or vomiting. Has not had feeds with PEG for 2-3 days now. Objective - Vital Signs Vital signs: Vital Signs Temp 98.1 F 02/05/18 06:59 Pulse 61 02/05/18 06:59 Resp 16 02/05/18 06:59 BP 100/45 02/05/18 06:59 Pulse Ox 93 L 02/05/18 06:59 Intake & Output 02/04/18 02/05/18 02/05/18 18:59 06:59 18:59 Intake Total 25 Balance 25 Weight 63.503 kg 63.503 kg Intake: IV 25 Other: Voiding Method Diaper Diaper # Voids 2 0 - Exam General: non toxic, mild distress, appears at stated age Derm: warm, dry Head: atraumatic, normocephalic, symmetric Eyes: EOMI, no lid lag, anicteric sclera Mouth: no lip lesion, mucus membranes moist Cardiovascular: S1S2 reg, systolic murmur, 2+ lower extremity edema bilaterally , Lungs: CTA bilateral, no rhonchi, no rales , no accessory muscle use Abdominal: soft, tenderness to palpation around the PEG site with no rebound, no guarding, no appreciable organomegaly Ext: no gross muscle atrophy, no contractures Neuro: no focal neuro deficits Psych: Alert, oriented, appropriate affect - Labs CBC & Chem 7: 02/05/18 07:31 02/05/18 07:27 Labs: Abnormal Lab Results - Last 24 Hours (Table) 02/04/18 02/04/18 02/04/18 Range/Units 19:15 19:15 19:31 RBC 3.21 L (3.80-5.40) m/uL Hgb 8.9 L (11.4-16.0) gm/dL Hct 30.6 L (34.0-46.0) % MCHC 29.2 L (31.0-37.0) g/dL RDW 15.9 H (11.5-15.5) % Sodium 134 L (137-145) mmol/L BUN 23 H (7-17) mg/dL Creatinine 0.50 L (0.52-1.04) mg/dL Calcium (8.4-10.2) mg/dL AST 55 H (14-36) U/L Alkaline Phosphatase 131 H (38-126) U/L Total Protein (6.3-8.2) g/dL Albumin 3.1 L (3.5-5.0) g/dL Amylase 117 H (30-110) U/L Lipase 620 H (23-300) U/L Urine Appearance Cloudy H (Clear) Urine pH 8.5 H (5.0-8.0) Urine Protein 1+ H (Negative) Urine Nitrite Positive H (Negative) Ur Leukocyte Esterase Large H (Negative) Urine WBC 116 H (0-5) /hpf Urine WBC Clumps Rare H (None) /hpf Urine Bacteria Occasional H (None) /hpf 02/05/18 02/05/18 Range/Units 07:27 07:31 RBC 2.52 L (3.80-5.40) m/uL Hgb 7.6 L (11.4-16.0) gm/dL Hct 25.0 L (34.0-46.0) % MCHC 30.4 L (31.0-37.0) g/dL RDW 16.6 H (11.5-15.5) % Sodium 134 L (137-145) mmol/L BUN 21 H (7-17) mg/dL Creatinine (0.52-1.04) mg/dL Calcium 8.2 L (8.4-10.2) mg/dL AST (14-36) U/L Alkaline Phosphatase (38-126) U/L Total Protein 5.5 L (6.3-8.2) g/dL Albumin 2.4 L (3.5-5.0) g/dL Amylase (30-110) U/L Lipase 499 H (23-300) U/L Urine Appearance (Clear) Urine pH (5.0-8.0) Urine Protein (Negative) Urine Nitrite (Negative) Ur Leukocyte Esterase (Negative) Urine WBC (0-5) /hpf Urine WBC Clumps (None) /hpf Urine Bacteria (None) /hpf Assessment and Plan Assessment: Assessment 77-year-old female with past medical history of esophageal cancer status post PEG, atrial fibrillation, congestive heart failure, history of CVA, bilateral DVTs, seizure disorder, recurrent pancreatitis presents to the emergency department PEG tube malfunction and burning abdominal pain at that site. CT reveals dislodged PEG tube. Lab work also consistent with pancreatitis, and a urinary tract infection. Plan 1. PEG tube dysfunction: CT shows malposition of the PEG tube with stable liver lesions and bilateral pleural effusions. Morphine 2 mg IV Q4 PRN for pain. Zofran 4 mg IV Q6H PRN for N/V. FU Sx consult 2. Recurrent pancreatitis: Lipase 620 to 499. 307 on discharge previously. Will keep patient NPO for now, Morphine for pain control, Zofran for N/V. FU Lipase in the AM. 3. UTI: UA shows + nitrite, large LE and occasional bacteria. Continue Ceftriaxone 1g IV QD. FU UCx, BCx 4. Anemia: Hg 7.6 Hct 25 MCV 99.1. Iron studies from 01/2018 consistent with Iron def. anemia. Hold Xarelto due to drop in Hg, last dose of Lovenox yesterday. Transfuse if Hg < 7. FU CBC in the afternoon. 5. Decubitus ulcer: Known problem. Wound care. 6. Bilateral LE DVTs: Since 12/2017 per daughter. Hold Xarelto due to drop in Hg. SCD boots for now. 7. Atrial fibrillation: Restart Metoprolol 12.5 mg PO BID when able to PO. Holding Xarelto for drop in Hg. Telemetry monitoring. K > 4 Mg > 2. TSH 03/2017 within normal limits. 8. CHF: Stable. EF 30-35% on 01/2018 Echo. Restart Metoprolol 12.5 mg PO BID, Lasix 40 mg PO BID, Sacubitril/Valsartan PO BID, Spironolactone 25 mg PO daily when able to PO. Daily weights. Ins and Outs. K > 4 Mg > 2. 9. Esophageal CA: Stable. FU Oncology outPT. 10. Seizure disorder: Stable. Continue Keppra 1000 mg IV BID. SZ precautions. Fall precautions.
[2018-02-05 17:37] LABS: Anisocytosis Slight; HCT 27.4 % (34.0-46.0); HGB 8.2 gm/dL (11.4-16.0); Hypochromasia Marked; MCH 30.1 pg (25.0-35.0); MCV 100.4 fL (80.0-100.0); Macrocytosis Slight; Mean Platelet Volume 8.5; Platelet Count 278 k/uL (150-450); RBC 2.73 m/uL (3.80-5.40); RDW 16.5 % (11.5-15.5)
[2018-02-06] MEDS: MORPHINE SULFATE 2 MG/ML SYRINGE IVP PRN (04:41)
[2018-02-06 06:22] VITALS: BP 99/56; PULSE 61; RESP 18; TEMP 98
--- NOTE | 2018-02-06 07:45 | P.PN ---
Subjective Progress Note Date: 02/06/18 Principal diagnosis: PEG tube malfunction Patient was seen and examined. No acute events overnight. Patient reports improvement in abdominal pain. No nausea or vomiting. Looking forward to going home. Review of vitals show a blood pressure of 99/56. Heart rate 61. Oxygen saturation 94%. Review of blood work shows hemoglobin of 7.7, hematocrit of 25.8, sodium of 136 , BUN of 27, glucose of 65, lipase of 338. Objective - Vital Signs Vital signs: Vital Signs Temp 98.0 F 02/06/18 06:22 Pulse 61 02/06/18 06:22 Resp 18 02/06/18 06:22 BP 99/56 02/06/18 06:22 Pulse Ox 94 L 02/06/18 06:22 Intake & Output 02/05/18 02/06/18 02/06/18 18:59 06:59 18:59 Intake Total 25 Balance 25 Weight 63.503 kg 63.5 kg Intake: IV 25 Other: Voiding Method Diaper Diaper # Voids 0 2 - Exam General: non toxic, mild distress, appears at stated age Derm: warm, dry Head: atraumatic, normocephalic, symmetric Eyes: EOMI, no lid lag, anicteric sclera Mouth: no lip lesion, mucus membranes moist Cardiovascular: S1S2 reg, systolic murmur, 2+ lower extremity edema bilaterally , Lungs: CTA bilateral, no rhonchi, no rales , no accessory muscle use Abdominal: soft, tenderness to palpation around the PEG site with no rebound, no guarding, no appreciable organomegaly Ext: no gross muscle atrophy, no contractures Neuro: no focal neuro deficits Psych: Alert, oriented, appropriate affect - Labs CBC & Chem 7: 02/06/18 07:33 02/06/18 07:33 Labs: Abnormal Lab Results - Last 24 Hours (Table) 02/05/18 02/05/18 02/05/18 Range/Units 07:27 07:31 15:56 RBC 2.52 L 2.73 L (3.80-5.40) m/uL Hgb 7.6 L 8.2 L (11.4-16.0) gm/dL Hct 25.0 L 27.4 L (34.0-46.0) % MCV 100.4 H (80.0-100.0) fL MCHC 30.4 L 30.0 L (31.0-37.0) g/dL RDW 16.6 H 16.5 H (11.5-15.5) % Sodium 134 L (137-145) mmol/L BUN 21 H (7-17) mg/dL Calcium 8.2 L (8.4-10.2) mg/dL Total Protein 5.5 L (6.3-8.2) g/dL Albumin 2.4 L (3.5-5.0) g/dL Lipase 499 H (23-300) U/L Microbiology - Last 24 Hours (Table) 02/04/18 19:15 Blood Culture - Preliminary Blood No Growth after 24 hours Assessment and Plan Assessment: Assessment 77-year-old female with past medical history of esophageal cancer status post PEG, atrial fibrillation, congestive heart failure, history of CVA, bilateral DVTs, seizure disorder, recurrent pancreatitis presents to the emergency department PEG tube malfunction and burning abdominal pain at that site. CT reveals dislodged PEG tube. Lab work also consistent with pancreatitis, and a urinary tract infection. Plan 1. Hypoglycemia: BG 65 on BMP. Patient asymptomatic. Likely due to NPO status. Will start D5 at 20ml/h. Started on CLD. Tube feeding today. Hypoglycemic precautions. 2. Low BP: BP 99/56. SBP ~ 100s, seems like baseline for patient. SBP in the 70' s and 80's yesterday but suspect due to anesthesia during EGD. Patient asymptomatic. Will continue Lasix 40 mg PO BID, Metoprolol 12.5 mg PO BID, Sacubitril/Valsartan PO BID but cut down on Aldactone from 25mg PO daily to 12.5mg. 3. Recurrent pancreatitis: Lipase 620 to 338. 307 on discharge previously. Advance diet as tolerated. Morphine for pain control, Zofran for N/V. 4. PEG tube dysfunction: s/p EGD with PEG tube replacement 02/05/2018. CT shows malposition of the PEG tube with stable liver lesions and bilateral pleural effusions. Morphine 2 mg IV Q4 PRN for pain. Zofran 4 mg IV Q6H PRN for N/V. Will attempt to start tube feeds today. 5. UTI: UA shows + nitrite, large LE and occasional bacteria. BCx prelim 24H no growth. UCx uncollected, asked nurse to collect. Continue Ceftriaxone 1g IV QD. FU UCx, BCx 6. Anemia: Hg 7.7 Hct 25.8 MCV 97.3. Iron studies from 01/2018 consistent with Iron def. anemia. Mid-day CBC showed improvement, likely dilutional due to patient receiving 2 bags of NS on admission. Transfuse if Hg < 7. Restart Xarelto. 7. Decubitus ulcer: Known problem. Albumin 2.4. Optimize nutritional support. Wound care. 8. Bilateral LE DVTs: Since 12/2017 per daughter. With cause - Esophageal CA, decreased mobility. Restart Xarelto. 9. Atrial fibrillation: Restart Metoprolol 12.5 mg PO BID when able to PO. Xarelto for AC. Telemetry monitoring. K > 4 Mg > 2. TSH 03/2017 within normal limits. 10. CHF: Stable. EF 30-35% on 01/2018 Echo. Restart Metoprolol 12.5 mg PO BID, Lasix 40 mg PO BID, Sacubitril/Valsartan PO BID. Will cut down Aldactone from 25 mg PO daily to 12.5 due to hypotension. Daily weights. Ins and Outs. K > 4 Mg > 2. 11. Esophageal CA: Stable. FU Oncology outPT. 12. Seizure disorder: Stable. Continue Keppra 1000 mg IV BID. SZ precautions. Fall precautions. 13. Dispo: Patient to be DC today with a close FU with PCP within 1-2 days of discharge. Advised to FU with PCP for UCx results. Got 2 days of Rocephin IV, will DC on Keflex 500 mg PO BID x 5 days.
[2018-02-06] MEDS: levETIRAcetam IV 1,000 MG in SALINE 1 100ML.BAG IVPB SCH (08:09)
[2018-02-06] MEDS: cefTRIAXone IN SWFI 1,000 MG/10 ML SYRINGE IVP SCH (08:09)
[2018-02-06 08:13] LABS: Anisocytosis Slight; HCT 25.8 % (34.0-46.0); HGB 7.7 gm/dL (11.4-16.0); Hypochromasia Marked; MCH 29.1 pg (25.0-35.0); MCV 97.3 fL (80.0-100.0); Macrocytosis Slight; Mean Platelet Volume 8.7; Platelet Count 299 k/uL (150-450); RBC 2.65 m/uL (3.80-5.40); RDW 16.5 % (11.5-15.5); WBC 7.2 k/uL (3.8-10.6)
[2018-02-06 08:26] LABS: Anion Gap 7 mmol/L; Blood Urea Nitrogen 27 mg/dL (7-17); Calcium 8.6 mg/dL (8.4-10.2); Carbon Dioxide 27 mmol/L (22-30); Chloride 102 mmol/L (98-107); Glucose 65 mg/dL (74-99); Lipase 338 U/L (23-300); Potassium 4.6 mmol/L (3.5-5.1); Sodium 136 mmol/L (137-145)
[2018-02-06] MEDS ORDERED: DEXTROSE 5%-0.9% NACL 1,000 ML IV SCH (09:00)
[2018-02-06] MEDS ORDERED: SACUBITRIL/VALSARTAN 24 MG-26 MG TABLET PO SCH (09:30)
[2018-02-06] MEDS ORDERED: SPIRONOLACTONE 25 MG TAB PEG/G-TUBE SCH (09:30)
[2018-02-06] MEDS ORDERED: levETIRAcetam ORAL SOLN 500 MG/5 ML CUP PEG/G-TUBE SCH (09:30)
--- NOTE | 2018-02-06 16:14 | P.DS ---
Providers Date of admission: 02/04/18 21:22 Expected date of discharge: 02/06/18 Attending physician: Brian Grijalva MD Consults: 02/04/18 21:21 Consult Physician Urgent Consulting Provider: Andre Jones Reason/Comments: PEG tube dislodged, abdominal pain, pancreatitis Do you want consulting provider notified?: Yes Primary care physician: Taina Ramirez - Nini Diagnosis(es) (1) Hypoglycemia Status: Acute (2) Low BP Status: Acute (3) Recurrent pancreatitis Status: Acute (4) PEG tube malfunction Status: Acute Hospital Course: Patient is a 77-year-old female with past medical history of esophageal cancer status post PEG, atrial fibrillation, congestive heart failure with EF of 30-35% , history of CVA, bilateral DVT, seizure disorder, hypothyroidism presented to the ED for acute onset epigastric abdominal pain, which was 8 out of 10 in severity, radiating to the back with movement. Family also noted leakage around the PEG tube and abnormal positioning which prompted them to bring her in. Patient also complained about dysuria. In the ED patient was found to have a hemoglobin of 8.9, hematocrit of 30.6, sodium of 134, BUN of 23, AST of 55, ALK of 131, lipase 628, amylase of 117. UA showed positive nitrite and large leukocyte esterase. She was admitted for PEG tube displacement, recurrent pancreatitis, and treatment for a urinary tract infection. CT of the abdomen was done which showed malpositioning of the PEG tube with stable liver lesions and bilateral pleural effusions. Surgery was consulted at this time and patient underwent EGD with PEG tube replacement on 02/05/2018. Her pain was well controlled at the time of discharge. Her lipase was trended for her recurrent pancreatitis. Her lipase trended down from 620 on admission to 338 on discharge. Patient was started on Rocephin IV for her urinary tract infection. Urine cultures were collected and pending at the time of discharge. Patient was initially found to be anemic with a hemoglobin of 8.9 and hematocrit of 30.6. On day 2 her hemoglobin dropped to 7.6 with a hematocrit of 25. This was thought to be dilutional, as she received 2 liters of normal saline during her hospitalization. Her hemoglobin remained stable during her hospitalization and she was restarted on Xarelto 20 mg QHS on discharge. Patient was noted to have a low blood pressure during her admission. On February 05, she she was hypotensive with a systolic blood pressure as low as 74. This was thought to be due to the anesthesia that was used during her EGD and PEG tube replacement. Her blood pressure remained borderline low and was 99/56 on discharge. Patient was instructed to continue her home dose of Metoprolol ( lowest dose) and Lasix but was advised to cut down her Aldactone from 25 mg by mouth daily to 12.5 mg. Patient was advised to follow-up with her primary care provider within 1-2 days of discharge for the results of her urine culture. During her hospitalization she received 2 days of IV Rocephin, I discharged her on Keflex 500 mg by mouth twice a day for 5 days to complete a total of 7 days of antibiotics for her UTI. More than 30 minutes was spent preparing this complex discharge. General: non toxic, mild distress, appears at stated age Derm: warm, dry Head: atraumatic, normocephalic, symmetric Eyes: EOMI, no lid lag, anicteric sclera Mouth: no lip lesion, mucus membranes moist Cardiovascular: S1S2 reg, systolic murmur, 2+ lower extremity edema bilaterally , Lungs: CTA bilateral, no rhonchi, no rales , no accessory muscle use Abdominal: soft, tenderness to palpation around the PEG site with no rebound, no guarding, no appreciable organomegaly Ext: no gross muscle atrophy, no contractures Neuro: no focal neuro deficits Psych: Alert, oriented, appropriate affect Pertinent Studies: Abdominal CT Lipase Procedures: EGD Patient Condition at Discharge: Stable Plan - Discharge Summary Discharge Rx Participant: No New Discharge Prescriptions: New Cephalexin [Keflex Susp] 10 ml PEG/G-TUBE Q12HR #100 ml Spironolactone [Aldactone] 12.5 mg PEG/G-TUBE DAILY #0 tab Continue Levothyroxine Sodium [Synthroid] 100 mcg PEG/G-TUBE QAM Sacubitril/Valsartan [Entresto 24 mg-26 mg Tablet] 1 tab PEG/G-TUBE BID Thiamine [Vitamin B-1] 100 mg PEG/G-TUBE DAILY Acetaminophen Tab [Tylenol] 325 - 650 mg PEG/G-TUBE Q4H PRN PRN Reason: Pain Omeprazole [PriLOSEC] 20 mg PEG/G-TUBE DAILY Gabapentin [Neurontin] 100 mg PEG/G-TUBE BID Furosemide [Lasix] 40 mg PEG/G-TUBE BID Folic Acid 1 mg PEG/G-TUBE DAILY Rivaroxaban [Xarelto] 20 mg PEG/G-TUBE DAILY #30 tab levETIRAcetam [Keppra Oral Solution] 1,000 mg PEG/G-TUBE Q12H Sennosides [Senna] 8.6 mg PEG/G-TUBE DAILY PRN PRN Reason: Constipation Metoprolol Tartrate [Lopressor] 12.5 mg PEG/G-TUBE BID Discontinued Aspirin 81 mg PEG/G-TUBE DAILY Spironolactone [Aldactone] 25 mg PEG/G-TUBE DAILY Discharge Medication List Levothyroxine Sodium [Synthroid] 100 mcg PEG/G-TUBE QAM 08/01/14 [History] Sacubitril/Valsartan [Entresto 24 mg-26 mg Tablet] 1 tab PEG/G-TUBE BID [History] Acetaminophen Tab [Tylenol] 325 - 650 mg PEG/G-TUBE Q4H PRN 01/28/18 [History] Folic Acid 1 mg PEG/G-TUBE DAILY 01/28/18 [History] Furosemide [Lasix] 40 mg PEG/G-TUBE BID 01/28/18 [History] Gabapentin [Neurontin] 100 mg PEG/G-TUBE BID 01/28/18 [History] Omeprazole [PriLOSEC] 20 mg PEG/G-TUBE DAILY 01/28/18 [History] Thiamine [Vitamin B-1] 100 mg PEG/G-TUBE DAILY 01/28/18 [History] Rivaroxaban [Xarelto] 20 mg PEG/G-TUBE DAILY #30 tab 02/02/18 [Rx] Metoprolol Tartrate [Lopressor] 12.5 mg PEG/G-TUBE BID 02/04/18 [History] Sennosides [Senna] 8.6 mg PEG/G-TUBE DAILY PRN 02/04/18 [History] levETIRAcetam [Keppra Oral Solution] 1,000 mg PEG/G-TUBE Q12H 02/04/18 [History] Cephalexin [Keflex Susp] 10 ml PEG/G-TUBE Q12HR #100 ml 02/06/18 [Rx] Spironolactone [Aldactone] 12.5 mg PEG/G-TUBE DAILY #0 tab 02/06/18 [Rx] Follow up Appointment(s)/Referral(s): Taina Ramirez MD [Primary Care Provider] - 1-2 days [facility] Visiting Nurse, [NON-STAFF] - Activity/Diet/Wound Care/Special Instructions: Diet: Resume diet from prior to admission. Please follow up with your primary care provider within 1-2 days of discharge. Note for the PCP: Please follow up with the urine culture, which was taken during hospitalization. Discharge Disposition: HOME SELF-CARE Pending Studies Pending Results: Urine culture to be followed up by PCP.
[2018-02-06] MEDS ORDERED: RIVAROXABAN 20 MG TAB PO SCH (17:30)
== END 2018-02-06 14:06 | disposition home health service (06) | DRG 393 ==
LOC: EC 17:08 → 4MS4W 21:22
PROVIDERS: ADMIT Internal Medicine; ATTEND Internal Medicine
PROC: 0D20XUZ Change Feeding Device in Upper Intestinal Tract, External Approach (ICD-10-PCS; principal; 2018-02-05 07:50)
DX: K94.23 Gastrostomy malfunction (principal); K85.90 Acute pancreatitis without necrosis or infection, unspecified; C15.9 Malignant neoplasm of esophagus, unspecified; C78.7 Secondary malignant neoplasm of liver and intrahepatic bile duct; I82.509 Chronic embolism and thrombosis of unspecified deep veins of unspecified lower extremity; N39.0 Urinary tract infection, site not specified; K86.1 Other chronic pancreatitis; I50.22 Chronic systolic (congestive) heart failure; E03.9 Hypothyroidism, unspecified; E16.2 Hypoglycemia, unspecified; E86.0 Dehydration; G40.909 Epilepsy, unspecified, not intractable, without status epilepticus; I48.91 Unspecified atrial fibrillation; L89.152 Pressure ulcer of sacral region, stage 2; R13.10 Dysphagia, unspecified; I95.9 Hypotension, unspecified; I11.0 Hypertensive heart disease with heart failure; I25.10 Atherosclerotic heart disease of native coronary artery without angina pectoris; D50.9 Iron deficiency anemia, unspecified; Z90.710 Acquired absence of both cervix and uterus; Z86.73 Personal history of transient ischemic attack (TIA), and cerebral infarction without residual deficits; Z79.899 Other long term (current) drug therapy; Z79.01 Long term (current) use of anticoagulants; Z79.82 Long term (current) use of aspirin; Z95.810 Presence of automatic (implantable) cardiac defibrillator; Z88.8 Allergy status to other drugs, medicaments and biological substances; Z91.013 Allergy to seafood; Z90.49 Acquired absence of other specified parts of digestive tract; Z87.01 Personal history of pneumonia (recurrent); Z82.49 Family history of ischemic heart disease and other diseases of the circulatory system; Z80.9 Family history of malignant neoplasm, unspecified; Y83.3 Surgical operation with formation of external stoma as the cause of abnormal reaction of the patient, or of later complication, without mention of misadventure at the time of the procedure; Y92.9 Unspecified place or not applicable
CPT/HCPCS: 36415; 43246; 74177; 80048; 80053; 81001; 82150; 83605; 83690; 85025; 85027; 87040; 87086; 96374; 96375; 99285

== ENCOUNTER → 2018-05-12 | Outpatient (CLI) | payer MEDICARE ==
--- NOTE | 2018-05-12 12:32 | FL ---
EXAMINATION TYPE: FL barium swallow w video DATE OF EXAM: 05/12/2018 MODIFIED SWALLOW / DEGLUTITION STUDY CLINICAL HISTORY: Dysphagia. History of distal esophageal cancer. TECHNIQUE: Deglutition study is performed utilizing thin liquid barium, honey thick liquid barium, a nd barium thick applesauce. A total of 2 minutes 38 seconds of fluoroscopic time was utilized during procedure. 0 spot images are saved to PACS. COMPARISON: CT abdomen and pelvis February 04, 2018. FINDINGS: The oral and pharyngeal phases show mild delay in initiation with satisfactory propagation with all modalities tested. There is no evidence of penetration or aspiration with any modality test ed. No significant pharyngeal residue was appreciated. Poor esophageal motility with pooling of cont rast up to proximal portion of esophagus is noted due to obstruction near site of neoplasm in distal esophagus near diaphragmatic hiatus. IMPRESSION: No penetration or aspiration. Unremarkable pharyngeal phase. Please refer to speech ther apist notes for further details if necessary.
== END | disposition home or self-care (01) ==
LOC: RADFLMAIN 10:55
PROVIDERS: ATTEND Internal Medicine Hematology & Oncology
DX: R13.10 Dysphagia, unspecified (principal)
CPT/HCPCS: 74230

== ENCOUNTER → 2018-05-13 | Outpatient (CLI) | payer MEDICARE ==
[2018-05-13 12:53] LABS: Blood Urea Nitrogen 17 mg/dL (7-17)
--- NOTE | 2018-05-13 16:18 | CT ---
EXAMINATION TYPE: CT ChestAbdPelvis w con DATE OF EXAM: 05/13/2018 INDICATION: Esophageal cancer COMPARISON: CT abdomen pelvis 02/04/2018 CT DLP: 602 mGycm CONTRAST: Performed without Oral Contrast and with IV Contrast, patient injected with 100 mL of Isovue 300. TECHNIQUE: Axial images at 5 mm thick sections. Reconstructed images in the coronal plane. Delayed images through the kidneys. FINDINGS: CT CHEST: Portion of the thyroid visualized is normal. No suspicious lung nodules are evident. There are scattered areas of pneumonitis within the mid and l ower lung [place] which are nonspecific. Atelectasis, infectious etiologies, and metastasis could be c onsidered. No solid components are identified on mediastinal windows. No enlarged mediastinal or hilar adenopathy is evident. The ascending aorta diameter at the level of the main pulmonary artery is 4.1 cm. The main pulmonary artery diameter at the bifurcation is 3.6 cm. Reflux into the esophagus is evident. CT ABDOMEN: PEG tube enters the stomach and is within the contrast within the stomach. Liver: Previous hypodensity within the left lobe liver is poorly visualized on the early phase of con trast. On delayed imaging there are several ill-defined hypodense areas within the right and left lob e liver. This would include suspicious lesions measure 1. 91.0 cm at the right dome of the diaphragm, a caudate head mass measuring 2.4 cm. Mid right lobe liver lesion measuring 1.5 cm. There are nadia us ill-defined hypoechoic dense lesions in the inferior right lobe liver measuring less than 1 cm. Th e left lobe finding is identified measuring 0.8 cm. Spleen: Normal Pancreas: Somewhat atrophic. Adrenal glands: The adrenal glands are normal. Gallbladder: Normal Kidneys: No masses are evident. No hydronephrosis is present. No cysts are present. Delayed images were obtained through the kidneys, which remain unremarkable. Aorta: Vascular calcification is within the aorta. Inferior vena cava: Normal. CT PELVIS: Phleboliths within the pelvis. Loops of bowel within the abdomen and pelvis are normal. There are loops of bowel which are incom pletely distended or lack oral contrast limiting their evaluation. Scattered diverticuli are present. No acute diverticulitis is evident. Appendix: Not clearly identified. No suspicious inflammatory changes are evident. Urinary bladder: Normal. Genitourinary structures: Uterus appears atrophic. Adnexal regions are clear. Osseous structures: No suspicious lytic or sclerotic lesions. Facet hypertrophy is present within the lower lumbar spine. IMPRESSIONS: 1. Multiple scattered hypodense lesions within the liver. This appears to be increasing in number fro m the comparison. 2. Scattered areas of pneumonitis within the mid and lower lung [place] is nonspecific. 3. Gastroesophageal reflux in the distal esophagus.
== END ==
LOC: RADCTMAIN 12:03
PROVIDERS: ATTEND Internal Medicine Hematology & Oncology
DX: C15.5 Malignant neoplasm of lower third of esophagus (principal); K76.89 Other specified diseases of liver; J18.9 Pneumonia, unspecified organism; K21.9 Gastro-esophageal reflux disease without esophagitis; Z91.013 Allergy to seafood
CPT/HCPCS: 82565; 84520; 71260; 74177; J1642; Q9967

== ENCOUNTER 2018-06-27 18:46 | Inpatient (IN) | payer MEDICARE ==
--- NOTE | 2018-06-27 19:19 | ED ---
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 Daughters are bedside who are both nurses and state that she has been very weak since yesterday and they're concerned about worsening congestive heart failure which she does have a history of. She complains of shortness of breath as well as wheezing and they also note that she had a fever of 100.2F on Thursday. Her last chemo was 6 weeks ago and she currently denies any significant abdominal pain or nausea/ vomiting/diarrhea. Family also states that they cannot take her abdomen was more distended than normal nor is there significant lower extremity edema. - Related Data Home Medications Medication Instructions Recorded Confirmed Levothyroxine Sodium [Synthroid] 100 mcg PEG/G-TUBE QAM 08/01/14 06/27/18 Sacubitril/Valsartan [Entresto 24 1 tab PEG/G-TUBE BID 12/01/17 06/27/18 mg-26 mg Tablet] Furosemide [Lasix] 40 mg PEG/G-TUBE DAILY PRN 01/28/18 06/27/18 Gabapentin [Neurontin] 100 mg PEG/G-TUBE BID 01/28/18 06/27/18 levETIRAcetam [Keppra Oral 1,000 mg PEG/G-TUBE Q12H 02/04/18 06/27/18 Solution] Acetaminophen [Tylenol Arthritis] 650 mg PEG/G-TUBE Q6H PRN 06/27/18 06/27/18 Diphenoxylate HCl/Atropine 1 tab PEG/G-TUBE DAILY 06/27/18 06/27/18 [Lomotil 2.5-0.025 mg Tablet] Hydrocodone/Acetaminophen [Hycet 5 - 10 ml PEG/G-TUBE Q8H PRN 06/27/18 06/27/18 7.5 mg-325 mg/15 ml Soln] Ondansetron [Zofran ODT] 4 mg PEG/G-TUBE Q6H PRN 06/27/18 06/27/18 Ranitidine Syrup [Zantac Syrup] 150 mg PEG/G-TUBE BID 06/27/18 06/27/18 Sertraline [Zoloft] 50 mg PEG/G-TUBE HS 06/27/18 06/27/18 Spironolactone [Aldactone] 25 mg PEG/G-TUBE DAILY 06/27/18 06/27/18 Previous Rx's Medication Instructions Recorded Rivaroxaban [Xarelto] 20 mg PEG/G-TUBE DAILY #30 tab 02/02/18 Allergies Allergy/AdvReac Type Severity Reaction Status Date / Time shellfish derived AdvReac Vomiting Verified 06/27/18 19:19 [id number] Reductase AdvReac MUSCLE Verified 06/27/18 19:19 Inhibitor PAINS Review of Systems ROS Statement: Those systems with pertinent positive or pertinent negative responses have been documented in the HPI. Constitutional: Positive for chills, fatigue and fever. HENT: Negative for congestion. Respiratory: Negative for chest tightness, and wheezing. Negative for cough. positive for shortness of breath. Cardiovascular: Negative for chest pain and palpitations. Gastrointestinal: Positive for abdominal pain. Negative for abdominal distention , diarrhea, nausea and vomiting. Genitourinary: Negative for dysuria. Musculoskeletal: Negative for back pain, neck pain and neck stiffness. Skin: Negative for color change. Neurological: Negative for dizziness, speech difficulty, weakness and light- headedness. Psychiatric/Behavioral: Negative for agitation and confusion. Negative for anxiety ROS Other: All systems not noted in ROS Statement are negative. Past Medical History Past Medical History: Atrial Fibrillation, Cancer, Heart Failure, CVA/TIA, Deep Vein Thrombosis (DVT), Pneumonia, Seizure Disorder, Thyroid Disorder Additional Past Medical History / Comment(s): hx difficulty swallowing and keeping solids down specifically meats/had egd w/ bx -positive for esophageal cancer-has had esophageal dilations w/2 stents since removed no chemo or radiation. pt stated pet scan spots on liver. last stroke mar 2011 (rt hand weaker), post stroke seizures last seizure December 2013, pneumonia,bronchitis, uti History of Any Multi-Drug Resistant Organisms: None Reported Past Surgical History: AICD, Bladder Surgery, Cholecystectomy, Hysterectomy Additional Past Surgical History / Comment(s): difibrillator/pacemaker 2016, left chest-[employer]tr[employer], stent in esaphagus december 2017, feeding tube ,egd/ dilations. stents(since removed) Past Anesthesia/Blood Transfusion Reactions: No Reported Reaction, Family History of Problems w/ Anesthesia Additional Past Anesthesia/Blood Transfusion Reaction / Comment(s): father had anesthesia for bladder bx and did not wake up after surgery at age 80 Type of Cardiac Device: AICD Device Placement Date:: 2016 Past Psychological History: No Psychological Hx Reported Smoking Status: Never smoker Past Alcohol Use History: None Reported Past Drug Use History: None Reported - Past Family History father Family Medical History: Cancer Additional Family Medical History / Comment(s): bladder mother Family Medical History: Congestive Heart Failure (CHF), Deep Vein Thrombosis ( DVT) General Exam - General Exam Comments Initial Comments: Constitutional: Pt is oriented to person, place, and time. Pt appears well- developed and well-nourished. No distress. HENT: Head: Normocephalic and atraumatic. Eyes: EOM are normal. Neck: Normal range of motion. Neck supple. Cardiovascular: Normal rate, regular rhythm, S1 normal, S2 normal and normal heart sounds. Exam reveals no gallop and no friction rub. No murmur heard. Pulmonary/Chest: Effort normal and breath sounds normal. No tachypnea and no bradypnea. No respiratory distress. No wheezes or rales noted. Abdominal: Soft. Bowel sounds are normal. Pt exhibits no shifting dullness, no distension, no pulsatile liver, no fluid wave, no abdominal bruit and no ascites. There is no tenderness. There is no rigidity, no rebound, no guarding, no tenderness at McBurney's point and negative De La Cruz's sign. PEG tube is in place with no surrounding erythema Musculoskeletal: Normal range of motion. Neurological: Pt is alert and oriented to person, place, and time. No cranial nerve deficit. Skin: Skin is warm and dry. No rash noted. Pt is not diaphoretic. No erythema. No pallor. Psychiatric: Pt has a normal mood and affect. Pt behavior is normal. Thought content normal. Limitations: physical limitation Course Vital Signs 06/27/18 06/27/18 06/27/18 18:48 19:14 21:45 Temperature 97.3 F L 98.2 F Pulse Rate 72 60 60 Respiratory 20 22 24 Rate Blood Pressure 110/80 104/46 96/46 O2 Sat by Pulse 94 L 95 97 Oximetry 06/27/18 06/27/18 06/27/18 22:20 22:36 23:23 Temperature Pulse Rate 65 67 60 Respiratory 22 25 H Rate Blood Pressure 93/59 97/67 89/36 O2 Sat by Pulse 96 95 96 Oximetry Medical Decision Making - Medical Decision Making Laboratory studies showed that there was significant leukocytosis of 20.8 but there was no clear source of infection as urinalysis was negative for infection and chest x-ray showed bilateral effusions. Nonetheless, because the patient is currently undergoing treatment for cancer, it was thought that it would be most appropriate to aggressively treat possible infection and therefore the patient was started on vancomycin and Zosyn. Additionally, there was electrolyte derangements which included hyperkalemia of 6.4 as well as hyponatremia of 125. Because of this, the patient was given calcium gluconate, insulin/D50. They're also no significant EKG changes which would require emergent dialysis. From a cardiac standpoint, troponin was elevated 0.081 and therefore the patient was given aspirin. Also BNP was measured at 5960. Because the patient's blood pressure was marginal, only 20 mg of Lasix were initiated and further Lasix throughout the night were not ordered because of the blood pressure. In this regards, discussion was had with the and daughter and it was recommended that because of blood pressure was low, central line as well as vasopressor should be initiated. However, they currently declined and stated that the patient normally has low blood pressure is usually fully functional and therefore they wanted to watch the patient overnight to see if pressors would be needed in the morning. Because of the overall poor state of the patient, it was thought that ICU would be most appropriate. Case was discussed with Dr. Felix who agreed.Explained all labs and diagnostic test results and that we will admit patient to hospital. Pt is agreeable to plan and case has been discussed with Dr. Grijalva and they agree to accept the pt. - Lab Data Result diagrams: 06/27/18 20:45 06/27/18 20:45 Lab Results 06/27/18 06/27/18 06/27/18 Range/Units 20:00 20:45 20:45 WBC 20.8 H (3.8-10.6) k/uL RBC 2.42 L (3.80-5.40) m/uL Hgb 8.3 L (11.4-16.0) gm/dL Hct 25.0 L (34.0-46.0) % MCV 103.4 H (80.0-100.0) fL MCH 34.3 (25.0-35.0) pg MCHC 33.2 (31.0-37.0) g/dL RDW 15.5 (11.5-15.5) % Plt Count 195 (150-450) k/uL Neutrophils % 90 % Lymphocytes % 3 % Monocytes % 5 % Eosinophils % 0 % Basophils % 0 % Neutrophils # 18.8 H (1.3-7.7) k/uL Lymphocytes # 0.6 L (1.0-4.8) k/uL Monocytes # 1.1 H (0-1.0) k/uL Eosinophils # 0.1 (0-0.7) k/uL Basophils # 0.0 (0-0.2) k/uL Hypochromasia Slight Macrocytosis Moderate PT (9.0-12.0) sec INR (<1.2) APTT (22.0-30.0) sec Sodium 125 L (137-145) mmol/L Potassium 6.4 H* (3.5-5.1) mmol/L Chloride 83 L (98-107) mmol/L Carbon Dioxide 34 H (22-30) mmol/L Anion Gap 8 mmol/L BUN 62 H (7-17) mg/dL Creatinine 0.90 (0.52-1.04) mg/dL Est GFR (CKD-EPI)AfAm 72 (>60 ml/min/1.73 sqM) Est GFR (CKD-EPI)NonAf 63 (>60 ml/min/1.73 sqM) Glucose 130 H (74-99) mg/dL Plasma Lactic Acid Vish (0.7-2.0) mmol/L Calcium 9.2 (8.4-10.2) mg/dL Total Bilirubin 0.4 (0.2-1.3) mg/dL AST 62 H (14-36) U/L ALT 37 (9-52) U/L Alkaline Phosphatase 287 H (38-126) U/L Troponin I (0.000-0.034) ng/mL NT-Pro-B Natriuret Pep pg/mL Total Protein 7.0 (6.3-8.2) g/dL Albumin 3.0 L (3.5-5.0) g/dL Lipase 154 (23-300) U/L Urine Color Urine Appearance (Clear) Urine pH (5.0-8.0) Ur Specific [place] (1.001-1.035) Urine Protein (Negative) Urine Glucose (UA) (Negative) Urine Ketones (Negative) Urine Blood (Negative) Urine Nitrite (Negative) Urine Bilirubin (Negative) Urine Urobilinogen (<2.0) mg/dL Ur Leukocyte Esterase (Negative) Influenza Type A RNA Not Detected (Not Detectd) Influenza Type B (PCR) Not Detected (Not Detectd) 06/27/18 06/27/18 06/27/18 Range/Units 20:45 20:45 20:45 WBC (3.8-10.6) k/uL RBC (3.80-5.40) m/uL Hgb (11.4-16.0) gm/dL Hct (34.0-46.0) % MCV (80.0-100.0) fL MCH (25.0-35.0) pg MCHC (31.0-37.0) g/dL RDW (11.5-15.5) % Plt Count (150-450) k/uL Neutrophils % % Lymphocytes % % Monocytes % % Eosinophils % % Basophils % % Neutrophils # (1.3-7.7) k/uL Lymphocytes # (1.0-4.8) k/uL Monocytes # (0-1.0) k/uL Eosinophils # (0-0.7) k/uL Basophils # (0-0.2) k/uL Hypochromasia Macrocytosis PT 10.6 (9.0-12.0) sec INR 1.0 (<1.2) APTT 23.7 (22.0-30.0) sec Sodium (137-145) mmol/L Potassium (3.5-5.1) mmol/L Chloride (98-107) mmol/L Carbon Dioxide (22-30) mmol/L Anion Gap mmol/L BUN (7-17) mg/dL Creatinine (0.52-1.04) mg/dL Est GFR (CKD-EPI)AfAm (>60 ml/min/1.73 sqM) Est GFR (CKD-EPI)NonAf (>60 ml/min/1.73 sqM) Glucose (74-99) mg/dL Plasma Lactic Acid Vish 1.1 (0.7-2.0) mmol/L Calcium (8.4-10.2) mg/dL Total Bilirubin (0.2-1.3) mg/dL AST (14-36) U/L ALT (9-52) U/L Alkaline Phosphatase (38-126) U/L Troponin I 0.081 H* (0.000-0.034) ng/mL NT-Pro-B Natriuret Pep pg/mL Total Protein (6.3-8.2) g/dL Albumin (3.5-5.0) g/dL Lipase (23-300) U/L Urine Color Urine Appearance (Clear) Urine pH (5.0-8.0) Ur Specific [place] (1.001-1.035) Urine Protein (Negative) Urine Glucose (UA) (Negative) Urine Ketones (Negative) Urine Blood (Negative) Urine Nitrite (Negative) Urine Bilirubin (Negative) Urine Urobilinogen (<2.0) mg/dL Ur Leukocyte Esterase (Negative) Influenza Type A RNA (Not Detectd) Influenza Type B (PCR) (Not Detectd) 06/27/18 06/27/18 Range/Units 20:45 21:00 WBC (3.8-10.6) k/uL RBC (3.80-5.40) m/uL Hgb (11.4-16.0) gm/dL Hct (34.0-46.0) % MCV (80.0-100.0) fL MCH (25.0-35.0) pg MCHC (31.0-37.0) g/dL RDW (11.5-15.5) % Plt Count (150-450) k/uL Neutrophils % % Lymphocytes % % Monocytes % % Eosinophils % % Basophils % % Neutrophils # (1.3-7.7) k/uL Lymphocytes # (1.0-4.8) k/uL Monocytes # (0-1.0) k/uL Eosinophils # (0-0.7) k/uL Basophils # (0-0.2) k/uL Hypochromasia Macrocytosis PT (9.0-12.0) sec INR (<1.2) APTT (22.0-30.0) sec Sodium (137-145) mmol/L Potassium (3.5-5.1) mmol/L Chloride (98-107) mmol/L Carbon Dioxide (22-30) mmol/L Anion Gap mmol/L BUN (7-17) mg/dL Creatinine (0.52-1.04) mg/dL Est GFR (CKD-EPI)AfAm (>60 ml/min/1.73 sqM) Est GFR (CKD-EPI)NonAf (>60 ml/min/1.73 sqM) Glucose (74-99) mg/dL Plasma Lactic Acid Vish (0.7-2.0) mmol/L Calcium (8.4-10.2) mg/dL Total Bilirubin (0.2-1.3) mg/dL AST (14-36) U/L ALT (9-52) U/L Alkaline Phosphatase (38-126) U/L Troponin I (0.000-0.034) ng/mL NT-Pro-B Natriuret Pep 5960 pg/mL Total Protein (6.3-8.2) g/dL Albumin (3.5-5.0) g/dL Lipase (23-300) U/L Urine Color Yellow Urine Appearance Clear (Clear) Urine pH 5.0 (5.0-8.0) Ur Specific [place] 1.017 (1.001-1.035) Urine Protein Trace H (Negative) Urine Glucose (UA) Negative (Negative) Urine Ketones Trace H (Negative) Urine Blood Negative (Negative) Urine Nitrite Negative (Negative) Urine Bilirubin Negative (Negative) Urine Urobilinogen 2.0 (<2.0) mg/dL Ur Leukocyte Esterase Negative (Negative) Influenza Type A RNA (Not Detectd) Influenza Type B (PCR) (Not Detectd) - EKG Data EKG Comments: EKG shows sinus rhythm with occasional premature ventricular complexes and fusion complexes. Rate is 65 bpm, AR interval 188, QRS 38, QTC 343. Disposition Clinical Impression: CHF exacerbation, Hyperkalemia, Hyponatremia, SIRS (systemic inflammatory response syndrome), Elevated troponin Disposition: ADMITTED IP TO THIS HOSP Condition: Poor Referrals: Taina Ramirez MD [Primary Care Provider] - 1-2 days Decision to Admit Reason: Admit from EC Decision Date: 06/28/18 Decision Time: 00:51
--- NOTE | 2018-06-27 20:22 | XR ---
EXAMINATION TYPE: XR chest 2V DATE OF EXAM: 06/27/2018 COMPARISON: 01/31/2018 HISTORY: Fever and short of breath TECHNIQUE: Frontal and lateral views of the chest are obtained. FINDINGS: There is blunting of the costophrenic angles. There is pulmonary vascular congestion. Ther e is right central venous catheter with tip in the superior vena cava. There is left axillary pacemak er with the lead tips over the right ventricle. There are chest leads. IMPRESSION: Mild congestive heart failure. There is improved aeration of the left lower lobe compare d to last exam. Heart failure unchanged.
[2018-06-27 21:17] LABS: Basophils % (A) 0 %; Eosinophils # (A) 0.1 k/uL (0-0.7); Eosinophils % (A) 0 %; HGB 8.3 gm/dL (11.4-16.0); Hypochromasia Slight; Lymphocytes # (A) 0.6 k/uL (1.0-4.8); Lymphocytes % (A) 3 %; MCH 34.3 pg (25.0-35.0); MCHC 33.2 g/dL (31.0-37.0); MCV 103.4 fL (80.0-100.0); Macrocytosis Moderate; Mean Platelet Volume 8.8; Monocytes # (A) 1.1 k/uL (0-1.0); Monocytes % (A) 5 %; Neutrophils # (A) 18.8 k/uL (1.3-7.7); Neutrophils % (A) 90 %; Platelet Count 195 k/uL (150-450); RBC 2.42 m/uL (3.80-5.40); RDW 15.5 % (11.5-15.5); WBC 20.8 k/uL (3.8-10.6)
[2018-06-27 21:28] LABS: Partial Thromboplastin Time 23.7 sec (22.0-30.0); Prothrombin Time 10.6 sec (9.0-12.0)
[2018-06-27 21:31] LABS: Calcium 9.2 mg/dL (8.4-10.2); Total Bilirubin 0.4 mg/dL (0.2-1.3)
[2018-06-27 21:35] LABS: Potassium 6.4 mmol/L (3.5-5.1)
[2018-06-27 21:36] LABS: Appearance,Urine Clear (Clear); Bilirubin,Urine Negative (Negative); Blood,Urine Negative (Negative); Color,Urine Yellow; Glucose,Urine (UA) Negative (Negative); Ketones,Urine Trace (Negative); Leukocyte Esterase,Urine Negative (Negative); Nitrite,Urine Negative (Negative); Protein,Urine Trace (Negative); Specific Gravity,Urine 1.017 (1.001-1.035)
[2018-06-27] MEDS ORDERED: INSULIN REGULAR 100 UNIT/ML VIAL IV ONE (21:52)
[2018-06-27] MEDS ORDERED: DEXTROSE 50%-WATER 50 ML SYRINGE IVP STA (21:52)
[2018-06-27] MEDS ORDERED: FUROSEMIDE 10 MG/ML 4 ML VIAL IV STA (21:52)
[2018-06-27] MEDS ORDERED: CALCIUM GLUCONATE 1,000 MG in SODIUM CHLORIDE 0.9% 100 ML IVPB ONE (21:53)
[2018-06-27] MEDS ORDERED: ASPIRIN 81 MG PO STA (22:00)
--- NOTE | 2018-06-27 23:40 | CT ---
EXAMINATION TYPE: CT abdomen pelvis w con DATE OF EXAM: 06/27/2018 COMPARISON: 05/13/2018 HISTORY: weakness CT DLP: 740.1 mGycm Automated exposure control for dose reduction was used. TECHNIQUE: Helical acquisition of images was performed from the lung bases through the pelvis. CONTRAST: Performed without Oral Contrast and with IV Contrast, patient injected with 100mL mL of Isovue 300. FINDINGS: There are bilateral pleural effusions. Heart is enlarged. There is pericardial effusion. There is hernandez e infiltrate and atelectasis at the lung bases. There are numerous variable sized hypodense masses throughout the liver that measure up to 3 cm. The bile ducts are not dilated. There is no evidence of a pancreatic mass. Spleen appears normal. Stomach is unremarkable. Gallbladder is not seen. There is no adrenal mass. Kidneys show satisfactory contrast opacification. There is no hydronephrosi s. There is no retroperitoneal adenopathy. There is no free fluid in the pelvis. Bladder distends smo othly. There is no inguinal hernia. There is no evidence of a pelvic mass. Appendix is not seen. Ther e is no sign of a thickened appendix. There is no mesenteric edema. There is subcutaneous edema aroun d the abdomen. I see no bony destructive process. IMPRESSION: THERE ARE NUMEROUS HYPODENSE LIVER LESIONS CONSISTENT WITH EXTENSIVE HEPATIC METASTATIC DISEASE. THIS IS SIGNIFICANTLY MORE THAN LAST CT SCAN. THERE IS SMALL HIATAL HERNIA THAT IS DECREASED COMPARED TO OLD EXAM. CARDIOMEGALY. BILATERAL PLEURAL EFFUSIONS AND BASILAR ATELECTASIS APPEAR NEW COMPARED TO LA ST EXAM. SUBCUTANEOUS EDEMA AROUND THE ABDOMEN INCREASED COMPARED TO LAST EXAM.
[2018-06-28] MEDS ORDERED: NALOXONE 0.4 MG/ML 1 ML VIAL IV PRN (00:42)
[2018-06-28] MEDS ORDERED: ACETAMINOPHEN PEG/G-TUBE PRN (00:48)
[2018-06-28] MEDS ORDERED: ONDANSETRON ODT 4 MG TAB PEG/G-TUBE PRN (00:48)
[2018-06-28] MEDS ORDERED: HYDROCODONE PEG/G-TUBE PRN (00:48)
[2018-06-28] MEDS ORDERED: VANCOMYCIN IV PER PHARMACY 1 EACH MISC MISCELLANE PRN (00:51)
[2018-06-28] MEDS ORDERED: VANCOMYCIN 1,000 MG in SODIUM CHLORIDE 0.9% 250 ML IVPB SCH (02:00)
--- NOTE | 2018-06-28 02:18 | P.HPIM ---
History of Present Illness H&P Date: 06/28/18 Chief Complaint: Lethargy and weakness 77-year-old female with history of esophageal cancer with metastases to the liver at history of CHF systolic with left ventricular ejection fraction of 30%. Patient is unable to provide any meaningful history at this point due to lethargy history was obtained by talking to the patient daughter was a nurse and to the patient Patient was at her baseline status of health until one week ago when she started showing evidence of generalized weakness and started using a walker to ambulate. However normally she does not require any assistive device for ambulation. Patient has received her most recent chemotherapy 6 weeks ago and her most recent radiation therapy 3 weeks ago. Patient multiple times has made clear that her wishes are to continue to fight the cancer and to be a full code. Patient family brought the patient today due to worsening generalized weakness and lethargy. Patient has been complaining of abdominal pain for 4 weeks mainly left lower quadrant and right lower quadrant. Patient has been having hard small stools. Patient family denies any coughing denies any recent traveling denies any diarrhea denies any report of changes in her urinary habits. In the ER patient was found to have hyperkalemia hyponatremia and shallow rapid breathing. Further imaging suggested bilateral pleural effusion moderate in size, abdominal CAT scan showed worsening of liver metastasis along with constipation. Patient will be sent to the ICU for close monitoring Review of Systems Limited review of systems due to patient's mentation Past Medical History Past Medical History: Atrial Fibrillation, Cancer, Heart Failure, CVA/TIA, Deep Vein Thrombosis (DVT), Pneumonia, Seizure Disorder, Thyroid Disorder Additional Past Medical History / Comment(s): hx difficulty swallowing and keeping solids down specifically meats/had egd w/ bx -positive for esophageal cancer-has had esophageal dilations w/2 stents since removed no chemo or radiation. pt stated pet scan spots on liver. last stroke mar 2011 (rt hand weaker), post stroke seizures last seizure December 2013, pneumonia,bronchitis, uti History of Any Multi-Drug Resistant Organisms: None Reported Past Surgical History: AICD, Bladder Surgery, Cholecystectomy, Hysterectomy Additional Past Surgical History / Comment(s): difibrillator/pacemaker 2016, left chest-[employer]tr[employer], stent in esaphagus december 2017, feeding tube ,egd/ dilations. stents(since removed) Past Anesthesia/Blood Transfusion Reactions: No Reported Reaction, Family History of Problems w/ Anesthesia Additional Past Anesthesia/Blood Transfusion Reaction / Comment(s): father had anesthesia for bladder bx and did not wake up after surgery at age 80 Type of Cardiac Device: AICD Device Placement Date:: 2016 Past Psychological History: No Psychological Hx Reported Smoking Status: Never smoker Past Alcohol Use History: None Reported Past Drug Use History: None Reported - Past Family History father Family Medical History: Cancer Additional Family Medical History / Comment(s): bladder mother Family Medical History: Congestive Heart Failure (CHF), Deep Vein Thrombosis ( DVT) Medications and Allergies Home Medications Medication Instructions Recorded Confirmed Type Levothyroxine Sodium [Synthroid] 100 mcg PEG/G-TUBE QAM 08/01/14 06/27/18 History Sacubitril/Valsartan [Entresto 24 1 tab PEG/G-TUBE BID 12/01/17 06/27/18 History mg-26 mg Tablet] Furosemide [Lasix] 40 mg PEG/G-TUBE DAILY PRN 01/28/18 06/27/18 History Gabapentin [Neurontin] 100 mg PEG/G-TUBE BID 01/28/18 06/27/18 History Rivaroxaban [Xarelto] 20 mg PEG/G-TUBE DAILY #30 tab 02/02/18 06/27/18 Rx levETIRAcetam [Keppra Oral 1,000 mg PEG/G-TUBE Q12H 02/04/18 06/27/18 History Solution] Acetaminophen [Tylenol Arthritis] 650 mg PEG/G-TUBE Q6H PRN 06/27/18 06/27/18 History Diphenoxylate HCl/Atropine 1 tab PEG/G-TUBE DAILY 06/27/18 06/27/18 History [Lomotil 2.5-0.025 mg Tablet] Hydrocodone/Acetaminophen [Hycet 5 - 10 ml PEG/G-TUBE Q8H PRN 06/27/18 06/27/18 History 7.5 mg-325 mg/15 ml Soln] Ondansetron [Zofran ODT] 4 mg PEG/G-TUBE Q6H PRN 06/27/18 06/27/18 History Ranitidine Syrup [Zantac Syrup] 150 mg PEG/G-TUBE BID 06/27/18 06/27/18 History Sertraline [Zoloft] 50 mg PEG/G-TUBE HS 06/27/18 06/27/18 History Spironolactone [Aldactone] 25 mg PEG/G-TUBE DAILY 06/27/18 06/27/18 History Allergies Allergy/AdvReac Type Severity Reaction Status Date / Time shellfish derived AdvReac Vomiting Verified 06/27/18 19:19 Kfwtzay-Kih-Vgx Reductase AdvReac MUSCLE Verified 06/27/18 19:19 Inhibitor PAINS Physical Exam Vitals: Vital Signs Temp Pulse Resp BP Pulse Ox 06/28/18 01:39 62 15 103/39 98 06/27/18 23:23 60 25 H 89/36 96 06/27/18 22:36 67 22 97/67 95 06/27/18 22:20 65 93/59 96 06/27/18 21:45 98.2 F 60 24 96/46 97 06/27/18 19:14 60 22 104/46 95 06/27/18 18:48 97.3 F L 72 20 110/80 94 L Intake and Output 06/27/18 06/27/18 06/28/18 14:59 22:59 06:59 Other: Weight 57.153 kg Constitutional: No acute distress, lethargic but easily arousable Eyes: Anicteric sclerae, moist conjunctiva, no lid-lag Pupils equal round reactive to light ENMT: NC/AT Oropharynx clear, no erythema, exudates Neck: Supple, FROM, no masses, or JVD No carotid bruits No thyromegaly Lungs: Decreased breath sounds admitted in lower lung, diffuse inspiratory rales Dull to percussion at lung bases Shallow abdominal breathing, Cardiovascular: Heart regular in rate and rhythm, No murmurs, gallops, or rubs No peripheral edema Abdominal: Soft Tenderness to palpation at the left lower quadrant , no guarding, rebound or rigidity Abdomen moving with respiration Normoactive bowel sounds No hepatomegaly, No splenomegaly No palpable mass No abdominal wall hernia noted Skin: Stage II decubitus ulcer with erythema over the sacrum very small ulcer of half by half centimeter over base of erythema of 10 x 10 cm No induration No subcutaneous nodules No rash, lesions Extremities: No digital cyanosis No clubbing Pedal pulses intact and symmetrical Radial pulses intact and symmetrical No calf tenderness Psychiatric: Alert and oriented to person, place but not to time Lethargic but easily arousable Neuro Muscles Strength 3/5 in all 4 extremities Sensation to light touch grossly present throughout Cranial nerves II-XII grossly intact No focal sensory deficits Lymphatics: no palpable cervical or supraclavicular , or inguinal lymph nodes Results CBC & Chem 7: 06/27/18 20:45 06/27/18 20:45 Labs: Abnormal Lab Results - Last 24 Hours (Table) 06/27/18 06/27/18 06/27/18 Range/Units 20:45 20:45 20:45 WBC 20.8 H (3.8-10.6) k/uL RBC 2.42 L (3.80-5.40) m/uL Hgb 8.3 L (11.4-16.0) gm/dL Hct 25.0 L (34.0-46.0) % MCV 103.4 H (80.0-100.0) fL Neutrophils # 18.8 H (1.3-7.7) k/uL Lymphocytes # 0.6 L (1.0-4.8) k/uL Monocytes # 1.1 H (0-1.0) k/uL Sodium 125 L (137-145) mmol/L Potassium 6.4 H* (3.5-5.1) mmol/L Chloride 83 L (98-107) mmol/L Carbon Dioxide 34 H (22-30) mmol/L BUN 62 H (7-17) mg/dL Glucose 130 H (74-99) mg/dL AST 62 H (14-36) U/L Alkaline Phosphatase 287 H (38-126) U/L Troponin I 0.081 H* (0.000-0.034) ng/mL Albumin 3.0 L (3.5-5.0) g/dL Urine Protein (Negative) Urine Ketones (Negative) 06/27/18 Range/Units 21:00 WBC (3.8-10.6) k/uL RBC (3.80-5.40) m/uL Hgb (11.4-16.0) gm/dL Hct (34.0-46.0) % MCV (80.0-100.0) fL Neutrophils # (1.3-7.7) k/uL Lymphocytes # (1.0-4.8) k/uL Monocytes # (0-1.0) k/uL Sodium (137-145) mmol/L Potassium (3.5-5.1) mmol/L Chloride (98-107) mmol/L Carbon Dioxide (22-30) mmol/L BUN (7-17) mg/dL Glucose (74-99) mg/dL AST (14-36) U/L Alkaline Phosphatase (38-126) U/L Troponin I (0.000-0.034) ng/mL Albumin (3.5-5.0) g/dL Urine Protein Trace H (Negative) Urine Ketones Trace H (Negative) Assessment and Plan Assessment: 77 year old female with history of Systolic CHF, esophageal cancer with mets to liver. admitted as inpatient with anticipated length of stay >48 hours for FAUSTINO with bilaeral pleural effusion due to acute CHF exacerbation, patient also has elevated WBC with unknown source of infection. CT scan showed worsening mets to the liver, along with significant constipation patient will be diuresed, cultures sent Plan: acute on chronic systolic CHF exacerbation most recent left ventricular ejection fraction of 30% bilateral pleural effusion generalized weakness and debility low blood pressure IV diuresis as tolerated patient is full code, OK to use pressors, and intubate if needed close monitoring in the ICU resume home meds Leukocytosis, unknown underlying cause, no obvious sign of acute infection Follow-up blood cultures No fevers, monitor vital signs closely Chronic anemia due to chronic disease Patient family denies any recent GI bleeding Continue to monitor hemoglobin Hyperkalemia follow up closely s/p insulin and D50 repeat levels q4 hr hyponatremia, possibly due to CHF exacerbation follow up levels post IV diuresis and reassess. seizure precautions chronic afib s/p pacemaker on xarelto history of DVT resume xarelto esophageal cancer with mets to the liver, s/p PEG insertion patient NPO due to abd pain abd pain most likely due to constipation soap shaye enema PO stool softner Stage II decubitus ulcer over the sacrum Local wound care DVT PPx on xarelto as above Preformed a thorough record review from recent hospitalization patient hospitalized back in February for acute urinary tract infection and acute pancreatitis. Patient has esophageal cancer with metastases to the liver status post PEG insertion Surrogate decision-maker: *Patient daughter Janene CODE STATUS: Full code Discussed with: Patient, ER, RN Anticipated discharge: 48-[address]: Pending clinical course A total of 60 minutes was spent on the care of this complex patient more than 50 % of the time was spent in counseling and care coordination.
[2018-06-28] MEDS ORDERED: BISACODYL 10 MG SUPP RECTAL STA (02:19)
[2018-06-28] MEDS ORDERED: POLYETHYLENE GLYCOL 3350 17 GM POWD.PACK PO STA (02:19)
[2018-06-28] MEDS ORDERED: DOCUSATE ORAL SOLN 100 MG/10 ML CUP PO PRN (02:20)
[2018-06-28 02:48] LABS: Glucose,Whole Blood 93 mg/dL (75-99)
[2018-06-28] MEDS: PIPERACILLIN-TAZOBACTAM 3.375 GM in SODIUM CHLORIDE 0.9% 100 ML IVPB SCH ×3 (03:58→20:14)
[2018-06-28 05:53] LABS: Basophils % (A) 0 %; Eosinophils # (A) 0.1 k/uL (0-0.7); Eosinophils % (A) 0 %; HCT 27.2 % (34.0-46.0); HGB 8.5 gm/dL (11.4-16.0); Hypochromasia Slight; Lymphocytes # (A) 0.7 k/uL (1.0-4.8); Lymphocytes % (A) 4 %; MCH 33.1 pg (25.0-35.0); MCHC 31.4 g/dL (31.0-37.0); MCV 105.5 fL (80.0-100.0); Macrocytosis Moderate; Mean Platelet Volume 8.2; Monocytes % (A) 6 %; Neutrophils % (A) 88 %; Platelet Count 184 k/uL (150-450); RBC 2.58 m/uL (3.80-5.40); RDW 15.6 % (11.5-15.5); WBC 18.2 k/uL (3.8-10.6)
[2018-06-28 06:04] LABS: Calcium 9.4 mg/dL (8.4-10.2); Magnesium 2.4 mg/dL (1.6-2.3); Phosphorus 5.1 mg/dL (2.5-4.5); Potassium 5.9 mmol/L (3.5-5.1)
[2018-06-28] MEDS ORDERED: LEVOTHYROXINE 100 MCG TAB PEG/G-TUBE SCH (06:30)
[2018-06-28] MEDS ORDERED: SODIUM POLYSTYRENE SULFONATE 15 GM/60 ML BOTTLE PO STA (07:23)
[2018-06-28] MEDS: IPRATROPIUM-ALBUTEROL 3 ML NEB INHALATION PRN ×4 (07:47→19:02)
[2018-06-28] MEDS: FUROSEMIDE 10 MG/ML 4 ML VIAL IV SCH ×2 (08:11→22:04)
[2018-06-28] MEDS: levETIRAcetam ORAL SOLN 500 MG/5 ML CUP PEG/G-TUBE SCH ×2 (08:12→22:06)
[2018-06-28] MEDS: PANTOPRAZOLE 40 MG/10 ML VIAL IV SCH (08:12)
[2018-06-28] MEDS: RIVAROXABAN 20 MG TAB PO SCH (08:12)
[2018-06-28] MEDS: GABAPENTIN 100 MG CAP PEG/G-TUBE SCH ×2 (08:12→22:05)
[2018-06-28] MEDS: RANITIDINE SYRUP 150 MG/10 ML CUP PEG/G-TUBE SCH ×2 (08:12→22:06)
[2018-06-28] MEDS: SPIRONOLACTONE 25 MG TAB PEG/G-TUBE SCH (08:13)
[2018-06-28] MEDS: SACUBITRIL/VALSARTAN 24 MG-26 MG TABLET PO SCH ×2 (08:13→22:06)
[2018-06-28 09:54] LABS: Calcium 9.6 mg/dL (8.4-10.2)
[2018-06-28 10:07] LABS: Potassium 5.7 mmol/L (3.5-5.1)
--- NOTE | 2018-06-28 10:21 | P.CRDCN ---
History of Present Illness Consult date: 06/28/18 History of present illness: This is a 77-year-old femalewith history of ischemic cardiomyopathy status post by the ICD, chronic congestive heart failure with metastatic cancer to the liver. Patient has received radiation therapy and also chemotherapy. Patient is brought to the emergency room with complaints of progressive weakness and shortness of breath and altered mental status. Patient to the time of my examination is sleepy and drowsy and barely arousable. She is going to get a computed tomography scan of the of the brain. Computed tomography scan of the abdomen showed persistent multiple nodules in the liver. Her blood work showed evidence some hyponatremia and hyperkalemia. BUN and creatinine are normal. Her white count is elevated. Chest x-ray showed evidence of mild CHF but not any worse than previous x-rays. The possibility of underlying sepsis or other metabolic issues to be constricted. Patient is currently on Entresto and also IV Lasix. She is diuresing fairly well. She is running a low blood pressures in the range of 70-80 systolic. Apparently patient is chronically low blood pressures. Overall clinical status is critical. She is made no CODE STATUS. I would continue with current medical therapy. Follow her electrolytes. If she becomes severely hypotensive, we may have to hold Entresto.prognosis is poor. Review of Systems not obtained Past Medical History Past Medical History: Atrial Fibrillation, Cancer, Heart Failure, CVA/TIA, Deep Vein Thrombosis (DVT), Pneumonia, Seizure Disorder, Thyroid Disorder Additional Past Medical History / Comment(s): hx difficulty swallowing and keeping solids down specifically meats/had egd w/ bx -positive for esophageal cancer-has had esophageal dilations w/2 stents since removed no chemo or radiation. pt stated pet scan spots on liver. last stroke mar 2011 (rt hand weaker), post stroke seizures last seizure December 2013, pneumonia,bronchitis, uti History of Any Multi-Drug Resistant Organisms: None Reported Past Surgical History: AICD, Bladder Surgery, Cholecystectomy, Hysterectomy Additional Past Surgical History / Comment(s): difibrillator/pacemaker 2016, left chest-[employer]tr[employer], stent in esaphagus december 2017, feeding tube ,egd/ dilations. stents(since removed) Past Anesthesia/Blood Transfusion Reactions: No Reported Reaction, Family History of Problems w/ Anesthesia Additional Past Anesthesia/Blood Transfusion Reaction / Comment(s): father had anesthesia for bladder bx and did not wake up after surgery at age 80 Type of Cardiac Device: AICD Device Placement Date:: 2016 Smoking Status: Never smoker - Past Family History father Family Medical History: Cancer Additional Family Medical History / Comment(s): bladder mother Family Medical History: Congestive Heart Failure (CHF), Deep Vein Thrombosis ( DVT) Medications and Allergies Home Medications Medication Instructions Recorded Confirmed Type Levothyroxine Sodium [Synthroid] 100 mcg PEG/G-TUBE QAM 08/01/14 06/27/18 History Sacubitril/Valsartan [Entresto 24 1 tab PEG/G-TUBE BID 12/01/17 06/27/18 History mg-26 mg Tablet] Furosemide [Lasix] 40 mg PEG/G-TUBE DAILY PRN 01/28/18 06/27/18 History Gabapentin [Neurontin] 100 mg PEG/G-TUBE BID 01/28/18 06/27/18 History Rivaroxaban [Xarelto] 20 mg PEG/G-TUBE DAILY #30 tab 02/02/18 06/27/18 Rx levETIRAcetam [Keppra Oral 1,000 mg PEG/G-TUBE Q12H 02/04/18 06/27/18 History Solution] Acetaminophen [Tylenol Arthritis] 650 mg PEG/G-TUBE Q6H PRN 06/27/18 06/27/18 History Diphenoxylate HCl/Atropine 1 tab PEG/G-TUBE DAILY 06/27/18 06/27/18 History [Lomotil 2.5-0.025 mg Tablet] Hydrocodone/Acetaminophen [Hycet 5 - 10 ml PEG/G-TUBE Q8H PRN 06/27/18 06/27/18 History 7.5 mg-325 mg/15 ml Soln] Ondansetron [Zofran ODT] 4 mg PEG/G-TUBE Q6H PRN 06/27/18 06/27/18 History Ranitidine Syrup [Zantac Syrup] 150 mg PEG/G-TUBE BID 06/27/18 06/27/18 History Sertraline [Zoloft] 50 mg PEG/G-TUBE HS 06/27/18 06/27/18 History Spironolactone [Aldactone] 25 mg PEG/G-TUBE DAILY 06/27/18 06/27/18 History Allergies Allergy/AdvReac Type Severity Reaction Status Date / Time shellfish derived AdvReac Vomiting Verified 06/27/18 19:19 Dzbjbzm-Zhc-Jcm Reductase AdvReac MUSCLE Verified 06/27/18 19:19 Inhibitor PAINS Physical Exam Vitals: Vital Signs Temp Pulse Resp BP Pulse Ox 06/28/18 10:00 59 L 11 L 79/43 97 06/28/18 09:30 59 L 6 L 98 06/28/18 09:00 59 L 21 93/56 98 06/28/18 08:30 59 L 19 87/51 98 06/28/18 08:02 59 L 06/28/18 08:00 97.7 F 60 13 85/53 100 06/28/18 07:47 61 98 06/28/18 07:30 60 22 87/51 97 06/28/18 07:00 59 L 19 87/58 93 L 06/28/18 06:30 60 22 88/46 94 L 06/28/18 06:00 60 18 87/58 93 L 06/28/18 05:30 59 L 14 73/46 98 06/28/18 05:00 59 L 12 86/56 98 06/28/18 04:00 60 20 106/44 98 06/28/18 03:30 60 15 89/55 97 06/28/18 03:10 60 19 77/47 98 06/28/18 03:00 97.4 F L 59 L 22 89/57 98 06/28/18 02:00 52 L 15 90/54 94 L 06/28/18 01:39 62 15 103/39 98 06/27/18 23:23 60 25 H 89/36 96 06/27/18 22:36 67 22 97/67 95 06/27/18 22:20 65 93/59 96 06/27/18 21:45 98.2 F 60 24 96/46 97 06/27/18 19:14 60 22 104/46 95 06/27/18 18:48 97.3 F L 72 20 110/80 94 L Intake and Output 06/27/18 06/28/18 06/28/18 22:59 06:59 14:59 Intake Total 430 220 Output Total 350 350 Balance 80 -130 Intake: IV 430 100 Normal saline 80 50 Piperacillin-Tazobactam 3 100 50 .375 gm In Sodium Chloride 0.9% 100 ml @ 25 mls/hr IVPB Q8H [facility] Rx#: [id number] Vancomycin 1,000 mg In 250 Sodium Chloride 0.9% 250 ml @ 125 mls/hr IVPB Q24H [facility] Rx#:[id number] Other 120 Output: Urine 350 350 Other: Voiding Method Indwelling Catheter Indwelling Catheter Weight 57.153 kg 61 kg 61 kg GENERAL EXAM: Patient is drowsy and lethargic and barely arousable HEENT: Normocephalic. Normal reaction of pupils, equal size NECK: No masses, no nuchal rigidity. CHEST: No chest wall deformity. LUNGS: diminished breath sounds at bases HEART: S1 and S2 normal ABDOMEN:distended SKIN: No rashes CENTRAL NERVOUS SYSTEM: patient is a lethargic and not responding. Most all extremities EXTREMITIES: No cyanosis, clubbing or edema. Results 06/28/18 05:44 06/28/18 08:37 Cardiac Enzymes 06/27/18 06/27/18 06/28/18 Range/Units 20:45 20:45 01:38 AST 62 H (14-36) U/L Troponin I 0.081 H* 0.087 H* (0.000-0.034) ng/mL 06/28/18 Range/Units 08:37 AST (14-36) U/L Troponin I 0.083 H* (0.000-0.034) ng/mL Coagulation 06/27/18 Range/Units 20:45 PT 10.6 (9.0-12.0) sec APTT 23.7 (22.0-30.0) sec CBC 06/27/18 06/28/18 Range/Units 20:45 05:44 WBC 20.8 H 18.2 H (3.8-10.6) k/uL RBC 2.42 L 2.58 L (3.80-5.40) m/uL Hgb 8.3 L 8.5 L (11.4-16.0) gm/dL Hct 25.0 L 27.2 L (34.0-46.0) % Plt Count 195 184 (150-450) k/uL Comprehensive Metabolic Panel 06/27/18 06/28/18 06/28/18 Range/Units 20:45 05:44 08:37 Sodium 125 L 127 L 127 L (137-145) mmol/L Potassium 6.4 H* 5.9 H 5.7 H (3.5-5.1) mmol/L Chloride 83 L 88 L 88 L (98-107) mmol/L Carbon Dioxide 34 H 32 H 31 H (22-30) mmol/L BUN 62 H 61 H 60 H (7-17) mg/dL Creatinine 0.90 0.87 0.86 (0.52-1.04) mg/dL Glucose 130 H 95 97 (74-99) mg/dL Calcium 9.2 9.4 9.6 (8.4-10.2) mg/dL AST 62 H (14-36) U/L ALT 37 (9-52) U/L Alkaline Phosphatase 287 H (38-126) U/L Total Protein 7.0 (6.3-8.2) g/dL Albumin 3.0 L (3.5-5.0) g/dL Current Medications Generic Name Dose Route Start Last Admin Trade Name Freq PRN Reason Stop Dose Admin Albuterol/Ipratropium 3 ml 06/28/18 00:42 06/28/18 07:47 Duoneb 0.5 Mg-3 Mg/3 Ml Soln INHALATION 3 ml RT-Q4H PRN Administration Shortness Of Breath Or Wheezing Docusate Sodium 100 mg 06/28/18 02:20 Colace Oral Soln PO BID PRN Constipation Furosemide 40 mg 06/28/18 09:00 06/28/18 08:11 Lasix IV 40 mg BID [facility] Administration Gabapentin 100 mg 06/28/18 09:00 06/28/18 08:12 Neurontin PEG/G-TUBE 100 mg BID [facility] Administration Piperacillin Sod/Tazobactam 100 mls @ 25 mls/hr 06/28/18 02:00 06/28/18 09:12 Sod 3.375 gm/ Sodium Chloride IVPB 25 mls/hr Q8H [facility] Administration Vancomycin HCl 1,250 mg/ 250 mls @ 125 mls/hr 06/28/18 16:00 Sodium Chloride IVPB Q16H [facility] Levetiracetam 1,000 mg 06/28/18 09:00 06/28/18 08:12 Keppra Oral Soln PEG/G-TUBE 1,000 mg Q12HR [facility] Administration Levothyroxine Sodium 100 mcg 06/28/18 06:30 06/28/18 08:11 Synthroid PEG/G-TUBE 100 mcg QAM@0630 [facility] Administration Miscellaneous Information 1 each 06/30/18 15:00 Vancomycin Trough Due MISCELLANE 06/30/18 15:01 ONCE ONE Naloxone HCl 0.2 mg 06/28/18 00:42 Narcan IV Q2M PRN Opioid Reversal Hydrocodone/ 5 ml 06/28/18 00:48 Acetaminophen [Hycet PEG/G-TUBE 7.5 Mg-325 Mg/15 Ml Q8H PRN Soln] Pain Ondansetron HCl 4 mg 06/28/18 00:48 Zofran Odt PEG/G-TUBE Q6H PRN Nausea And Vomiting Pantoprazole Sodium 40 mg 06/28/18 09:00 06/28/18 08:12 Protonix IV 40 mg DAILY [facility] Administration Ranitidine HCl 150 mg 06/28/18 09:00 06/28/18 08:12 Zantac Syrup PEG/G-TUBE 150 mg BID [facility] Administration Rivaroxaban 20 mg 06/28/18 09:00 06/28/18 08:12 Xarelto PO 20 mg DAILY [facility] Administration Sacubitril/Valsartan 1 each 06/28/18 09:00 06/28/18 08:13 Entresto 24 Mg-26 Mg Tablet PO 1 each BID [facility] Administration Sertraline HCl 50 mg 06/28/18 21:00 Zoloft PEG/G-TUBE HS [facility] Spironolactone 25 mg 06/28/18 09:00 06/28/18 08:13 Aldactone PEG/G-TUBE 25 mg DAILY [facility] Administration Intake and Output 06/27/18 06/28/18 06/28/18 22:59 06:59 14:59 Intake Total 430 220 Output Total 350 350 Balance 80 -130 Intake: IV 430 100 Normal saline 80 50 Piperacillin-Tazobactam 3 100 50 .375 gm In Sodium Chloride 0.9% 100 ml @ 25 mls/hr IVPB Q8H [facility] Rx#: [id number] Vancomycin 1,000 mg In 250 Sodium Chloride 0.9% 250 ml @ 125 mls/hr IVPB Q24H [facility] Rx#:[id number] Other 120 Output: Urine 350 350 Other: Voiding Method Indwelling Catheter Indwelling Catheter Weight 57.153 kg 61 kg 61 kg Patient Weight 06/29/18 06:59 Weight 61 kg 06/28/18 05:44 06/28/18 08:37 EKG Interpretations (text) showed atrial flutter with biventricular pacemaker rhythm. Assessment and Plan (1) Elevated troponin Current Visit: Yes Status: Acute Code(s): R74.8 - ABNORMAL LEVELS OF OTHER SERUM ENZYMES SNOMED Code(s): 431385656 (2) Hyperkalemia Current Visit: Yes Status: Acute Code(s): E87.5 - HYPERKALEMIA SNOMED Code (s): 10915136 (3) Hyponatremia Current Visit: Yes Status: Acute Code(s): E87.1 - HYPO-OSMOLALITY AND HYPONATREMIA SNOMED Code(s): 21783717 (4) SIRS (systemic inflammatory response syndrome) Current Visit: Yes Status: Acute Code(s): R65.10 - SIRS OF NON-INFECTIOUS ORIGIN W/O ACUTE ORGAN DYSFUNCTION SNOMED Code(s): 712190732 (5) Altered mental status Current Visit: No Status: Acute Code(s): R41.82 - ALTERED MENTAL STATUS, UNSPECIFIED SNOMED Code(s): 782214476 (6) Chronic atrial fibrillation Current Visit: No Status: Acute Code(s): I48.2 - CHRONIC ATRIAL FIBRILLATION SNOMED Code(s): 586430066 (7) Chronic congestive heart failure Current Visit: Yes Status: Acute Code(s): I50.9 - HEART FAILURE, UNSPECIFIED SNOMED Code(s): 87886826 Plan: it appears the whole picture is consistent with possible sepsis or other metabolic issues. Patient does have chronic CHF. Her troponin elevation is not consistent with acute myocardial infarction pattern. Could be related to multiple issues including hypoxia and also hypotension. Continue current medical therapy. Patient is getting computed tomography scan of the head. Overall prognosis is poor
--- NOTE | 2018-06-28 11:02 | CT ---
EXAMINATION TYPE: CT brain wo con DATE OF EXAM: 06/28/2018 HISTORY: Altered mental status changes CT DLP: 1046.4 mGycm. Automated Exposure Control for Dose Reduction was Utilized. TECHNIQUE: CT scan of the head is performed without contrast. COMPARISON: CT brain June 23, 2013. FINDINGS: There is no acute intracranial hemorrhage or midline shift identified. There is diffuse v entricular and sulcal prominence consistent with diffuse age-related cerebral atrophy. There is low- attenuation in the periventricular white matter consistent with chronic small vessel ischemic change. Old infarct left frontoparietal region and the MCA distribution is redemonstrated. The globes are i ntact and the visualized sinuses are clear. IMPRESSION: No acute intracranial hemorrhage or midline shift. There is mild diffuse age-related ce rebral atrophy and chronic small vessel ischemic change with old left MCA distribution infarct all re demonstrated.
--- NOTE | 2018-06-28 11:21 | P.CNPUL ---
History of Present Illness Consult date: 06/28/18 Requesting physician: Brian Grijalva Reason for consult: dyspnea, other Chief complaint: Weakness, shortness of breath, low-grade fever History of present illness: This is a 77-year-old white male patient of Dr. Ramirez, with past medical history of metastatic esophageal cancer, with metastasis to the liver, who had been receiving chemotherapy, chronic atrial fibrillation, permanent pacemaker/AICD in place, chronic congestive heart failure, previous CVA/TIA, DVT , previous episodes of pneumonia, seizure disorder, hypothyroidism, PEG tube placement for esophageal narrowing with previous history of esophageal dilations and stents placement and removal, was brought into the emergency department on 06/26/2018 by her daughters, for evaluation of increasing weakness , shortness of breath, some wheezing, and low-grade fevers. Her last chemo was 6 weeks ago. Family was concerned about some increased abdominal distention and lower extremity edema. No abdominal pain, nausea, vomiting or diarrhea. Chest x-ray showed pulmonary vascular congestion, blunting of the costophrenic angles, mild congestive heart failure. CT of the abdomen and pelvis showed numerous hypodense liver lesions consistent with extensive hepatic metastatic disease, that were significantly more than last computed tomography scan, showed a small hiatal hernia, cardiomegaly, bilateral pleural effusions and basilar atelectasis. Subcutaneous edema around the abdomen. EKG showed sinus rhythm with occasional pacemaker spikes. Brain CT showed no acute findings, there was mild diffuse age-related cerebral atrophy and chronic small vessel ischemic change, with old left MCA distribution infarct. Labs showed a CBC of 20.8, hemoglobin of 8.3, sodium was 125, potassium is 6.4, chloride was 83, CO2 is 34, BUN was 62, creatinine 0.90, AST was 62, alkaline phosphatase was 287, troponins were 0.081, 0.087, 0.083, proBNP was elevated at 5960. Influenza was negative, urinalysis showed trace protein and trace ketones. Patient has been intermittently hypotensive, with systolic in the 70s and diastolic in the 40s. Apparently patient chronically runs a low blood pressure, asymptomatic. Afebrile. She was started on empiric antibiotics in the form of vancomycin and Zosyn, cardiology is consulted. Patient is extremely weak, somnolent, she opens her eyes, and tries to answer, but mostly time her speech is incoherent. Did say she was in the hospital. Not in any apparent distress right now. Review of Systems All systems: negative Constitutional: Reports weakness, Denies chills, Denies fever Eyes: denies blurred vision, denies pain Ears, nose, mouth and throat: Denies headache, Denies sore throat Cardiovascular: Reports decreased exercise tolerance, Reports dyspnea on exertion, Reports leg edema, Denies chest pain, Denies shortness of breath Respiratory: Reports dyspnea, Denies cough Gastrointestinal: Denies abdominal pain, Denies diarrhea, Denies nausea, Denies vomiting Genitourinary: Denies dysuria, Denies hematuria Musculoskeletal: Denies myalgias Integumentary: Denies pruritus, Denies rash Neurological: Denies numbness, Denies weakness Psychiatric: Denies anxiety, Denies depression Endocrine: Denies fatigue, Denies weight change Past Medical History Past Medical History: Atrial Fibrillation, Cancer, Heart Failure, CVA/TIA, Deep Vein Thrombosis (DVT), Pneumonia, Seizure Disorder, Thyroid Disorder Additional Past Medical History / Comment(s): hx difficulty swallowing and keeping solids down specifically meats/had egd w/ bx -positive for esophageal cancer-has had esophageal dilations w/2 stents since removed no chemo or radiation. pt stated pet scan spots on liver. last stroke mar 2011 (rt hand weaker), post stroke seizures last seizure December 2013, pneumonia,bronchitis, uti History of Any Multi-Drug Resistant Organisms: None Reported Past Surgical History: AICD, Bladder Surgery, Cholecystectomy, Hysterectomy Additional Past Surgical History / Comment(s): difibrillator/pacemaker 2016, left chest-[employer], stent in esaphagus december 2017, feeding tube ,egd/ dilations. stents(since removed) Past Anesthesia/Blood Transfusion Reactions: No Reported Reaction, Family History of Problems w/ Anesthesia Additional Past Anesthesia/Blood Transfusion Reaction / Comment(s): father had anesthesia for bladder bx and did not wake up after surgery at age 80 Type of Cardiac Device: AICD Device Placement Date:: 2016 Smoking Status: Never smoker - Past Family History father Family Medical History: Cancer Additional Family Medical History / Comment(s): bladder mother Family Medical History: Congestive Heart Failure (CHF), Deep Vein Thrombosis ( DVT) Medications and Allergies Home Medications Medication Instructions Recorded Confirmed Type Levothyroxine Sodium [Synthroid] 100 mcg PEG/G-TUBE QAM 08/01/14 06/27/18 History Sacubitril/Valsartan [Entresto 24 1 tab PEG/G-TUBE BID 12/01/17 06/27/18 History mg-26 mg Tablet] Furosemide [Lasix] 40 mg PEG/G-TUBE DAILY PRN 01/28/18 06/27/18 History Gabapentin [Neurontin] 100 mg PEG/G-TUBE BID 01/28/18 06/27/18 History Rivaroxaban [Xarelto] 20 mg PEG/G-TUBE DAILY #30 tab 02/02/18 06/27/18 Rx levETIRAcetam [Keppra Oral 1,000 mg PEG/G-TUBE Q12H 02/04/18 06/27/18 History Solution] Acetaminophen [Tylenol Arthritis] 650 mg PEG/G-TUBE Q6H PRN 06/27/18 06/27/18 History Diphenoxylate HCl/Atropine 1 tab PEG/G-TUBE DAILY 06/27/18 06/27/18 History [Lomotil 2.5-0.025 mg Tablet] Hydrocodone/Acetaminophen [Hycet 5 - 10 ml PEG/G-TUBE Q8H PRN 06/27/18 06/27/18 History 7.5 mg-325 mg/15 ml Soln] Ondansetron [Zofran ODT] 4 mg PEG/G-TUBE Q6H PRN 06/27/18 06/27/18 History Ranitidine Syrup [Zantac Syrup] 150 mg PEG/G-TUBE BID 06/27/18 06/27/18 History Sertraline [Zoloft] 50 mg PEG/G-TUBE HS 06/27/18 06/27/18 History Spironolactone [Aldactone] 25 mg PEG/G-TUBE DAILY 06/27/18 06/27/18 History Allergies Allergy/AdvReac Type Severity Reaction Status Date / Time shellfish derived AdvReac Vomiting Verified 06/27/18 19:19 Gfrnktu-Gih-Dxx Reductase AdvReac MUSCLE Verified 06/27/18 19:19 Inhibitor PAINS Physical Exam Vitals: Vital Signs Temp Pulse Resp BP Pulse Ox 06/28/18 10:00 59 L 11 L 79/43 97 06/28/18 09:30 59 L 6 L 98 06/28/18 09:00 59 L 21 93/56 98 06/28/18 08:30 59 L 19 87/51 98 06/28/18 08:02 59 L 06/28/18 08:00 97.7 F 60 13 85/53 100 06/28/18 07:47 61 98 06/28/18 07:30 60 22 87/51 97 06/28/18 07:00 59 L 19 87/58 93 L 06/28/18 06:30 60 22 88/46 94 L 06/28/18 06:00 60 18 87/58 93 L 06/28/18 05:30 59 L 14 73/46 98 06/28/18 05:00 59 L 12 86/56 98 06/28/18 04:00 60 20 106/44 98 06/28/18 03:30 60 15 89/55 97 06/28/18 03:10 60 19 77/47 98 06/28/18 03:00 97.4 F L 59 L 22 89/57 98 06/28/18 02:00 52 L 15 90/54 94 L 06/28/18 01:39 62 15 103/39 98 06/27/18 23:23 60 25 H 89/36 96 06/27/18 22:36 67 22 97/67 95 06/27/18 22:20 65 93/59 96 06/27/18 21:45 98.2 F 60 24 96/46 97 06/27/18 19:14 60 22 104/46 95 06/27/18 18:48 97.3 F L 72 20 110/80 94 L Intake and Output 06/27/18 06/28/18 06/28/18 22:59 06:59 14:59 Intake Total 430 220 Output Total 350 350 Balance 80 -130 Intake: IV 430 100 Normal saline 80 50 Piperacillin-Tazobactam 3 100 50 .375 gm In Sodium Chloride 0.9% 100 ml @ 25 mls/hr IVPB Q8H [facility] Rx#: [id number] Vancomycin 1,000 mg In 250 Sodium Chloride 0.9% 250 ml @ 125 mls/hr IVPB Q24H [facility] Rx#:[id number] Other 120 Output: Urine 350 350 Other: Voiding Method Indwelling Catheter Indwelling Catheter Weight 57.153 kg 61 kg 61 kg GENERAL EXAM: Somnolent, weak, pale, 77-year-old elderly frail chronically ill an 77-year-old female comfortable in no apparent distress. HEAD: Normocephalic/atraumatic. EYES: Normal reaction of pupils, equal size. Conjunctiva pink, sclera white. NOSE: Clear with pink turbinates. THROAT: No erythema or exudates. NECK: No masses, no JVD, no thyroid enlargement, no adenopathy. CHEST: No chest wall deformity. Symmetrical expansion. LUNGS: Equal air entry with no crackles, wheeze, rhonchi or dullness. CVS: Regular rate and rhythm, normal S1 and S2, no gallops, no murmurs, no rubs ABDOMEN: Soft, nontender. No hepatosplenomegaly, normal bowel sounds, no guarding or rigidity. EXTREMITIES: No clubbing, lower extremity edema, no cyanosis, 2+ pulses and upper and lower extremities. MUSCULOSKELETAL: Muscle strength and tone normal. SPINE: No scoliosis or deformity SKIN: No rashes CENTRAL NERVOUS SYSTEM: Alert and oriented -1. No focal deficits, tone is normal in all 4 extremities. Results - Laboratory Findings CBC and BMP: 06/28/18 05:44 06/28/18 08:37 PT/INR, D-dimer PT 10.6 sec (9.0-12.0) 06/27/18 20:45 INR 1.0 (<1.2) 06/27/18 20:45 Abnormal lab findings: Abnormal Labs 06/27/18 06/27/18 06/27/18 20:45 20:45 20:45 WBC 20.8 H RBC 2.42 L Hgb 8.3 L Hct 25.0 L MCV 103.4 H RDW Neutrophils # 18.8 H Lymphocytes # 0.6 L Monocytes # 1.1 H Sodium 125 L Potassium 6.4 H* Chloride 83 L Carbon Dioxide 34 H BUN 62 H Glucose 130 H Phosphorus Magnesium AST 62 H Alkaline Phosphatase 287 H Troponin I 0.081 H* Albumin 3.0 L Urine Protein Urine Ketones 06/27/18 06/28/18 06/28/18 21:00 01:38 05:44 WBC 18.2 H RBC 2.58 L Hgb 8.5 L Hct 27.2 L MCV 105.5 H RDW 15.6 H Neutrophils # 16.0 H Lymphocytes # 0.7 L Monocytes # Sodium Potassium Chloride Carbon Dioxide BUN Glucose Phosphorus Magnesium AST Alkaline Phosphatase Troponin I 0.087 H* Albumin Urine Protein Trace H Urine Ketones Trace H 06/28/18 06/28/18 06/28/18 05:44 08:37 08:37 WBC RBC Hgb Hct MCV RDW Neutrophils # Lymphocytes # Monocytes # Sodium 127 L 127 L Potassium 5.9 H 5.7 H Chloride 88 L 88 L Carbon Dioxide 32 H 31 H BUN 61 H 60 H Glucose Phosphorus 5.1 H Magnesium 2.4 H AST Alkaline Phosphatase Troponin I 0.083 H* Albumin Urine Protein Urine Ketones - Diagnostic Findings Chest x-ray: report reviewed, image reviewed Additional studies: Brain CT, abdomen and pelvis CT, chest x-ray, EKG reviewed Assessment and Plan Plan: Assessment: #1. Altered mental status present on admission, possibly related to sepsis. CT brain did not show any acute findings #2. Severe generalized weakness #3. Elevated troponin #4. Chronic congestive heart failure #5. Intermittent hypotension, rule out infectious etiology and sepsis #6. Leucocytosis #7. Hyponatremia #8. Hyperkalemia #9. Chronic A. fib #10. Permanent pacemaker/AICD #11. Esophageal cancer with metastasis to the liver, and CT of the abdomen and pelvis shows progression of the disease #12. PEG tube in place, for esophageal narrowing, patient has had previous esophageal dilations and stent put in and subsequent removal #13. Disorder, previous history of CVA/TIA #14. Hypothyroidism or graft #15. Previous concerns of pneumonia Plan: Continue current antibiotic coverage, cultures have been collected and sent, are pending at this time, patient is afebrile, CT of the abdomen and pelvis was reviewed, and shows progression of metastatic disease in the liver. We had an extensive discussion with patient's daughter, and her prognosis is poor based on her poor baseline functional performance, multiple comorbidities, and metastatic disease. It was agreed that the patient will be a status DO NOT RESUSCITATE, continue supportive care for now. Cardiogram has been ordered and is pending at this time, hyperkalemia has been treated, we'll check TSH, and serum cortisol level. Monitor patient's renal profile and electrolytes. GI and DVT prophylaxis. Overall prognosis is extremely guarded I performed a history & physical examination of the patient and discussed their management with my nurse practitioner, Radha Lee. I reviewed the nurse practitioner's note and agree with the documented findings and plan of care. Lung sounds are diminished with a few rhonchi.. The findings and the impression was discussed with the patient. I attest to the documentation by the nurse practitioner. Time with Patient: Greater than 30
[2018-06-28 12:01] LABS: T4, Free (Free Thyroxine) 2.18 ng/dL (0.78-2.19)
[2018-06-28 12:04] LABS: Hemoglobin A1C 5.5 % (4.0-6.0)
--- NOTE | 2018-06-28 14:39 | ECHOF ---
Referral Reason:pericardial effusion MEASUREMENTS -------- HEIGHT: 152.4 cm WEIGHT: 60.8 kg BP: 79/43 RVIDd: 2.8 cm (< 3.3) IVSd: 1.0 cm (0.6 - 1.1) LVIDd: 4.0 cm (3.9 - 5.3) LVPWd: 1.0 cm (0.6 - 1.1) IVSs: 1.3 cm LVIDs: 3.2 cm LVPWs: 1.3 cm LAESV Index (A-L): 56.84 ml/m Ao Diam: 3.5 cm (2.0 - 3.7) AV Cusp: 1.8 cm (1.5 - 2.6) LA Diam: 4.5 cm (2.7 - 3.8) EPSS: 1.2 cm AR PHT: 740 ms RAP: 5.00 mmHg RVSP: 29.01 mmHg MV EF SLOPE: 136.95 mm/s (70 - 150) MV EXCURSION: 2.22 cm (> 18.000) FINDINGS -------- Undetermined rhythm. This was a technically adequate study. The left ventricular size is normal. There is mild concentric left ventricular hypertrophy. Overa ll left ventricular systolic function is mild-moderately impaired with, an EF between 40 - 45 %. Se ptal wall motion is delayed, and consistent with conduction delay/bundle branch block. Septal Hypok inesis Apical Hypokinesis. The right ventricle is normal in size. The right ventricular systolic function is mildly impaired. LA is severely dilated >40 ml/m2 Electronic pacemaker lead seen in the right ventricular cavity. RA appears enlarged. Aortic valve is trileaflet and is mildly thickened. There is htfu-lj-zoitstfu aortic regurgitation. There is no evidence of aortic stenosis. The mitral valve leaflets are mildly thickened. Mild mitral annular calcification present. Modera te mitral regurgitation is present. Moderate tricuspid regurgitation present. There is no evidence of pulmonary hypertension. The rig ht ventricular systolic pressure, as measured by Doppler, is 29.01mmHg. The pulmonic valve was not well visualized. The aortic root size is normal. IVC Not well visulized. There is no pericardial effusion. CONCLUSIONS -------- 1. Undetermined rhythm. 2. This was a technically adequate study. 3. The left ventricular size is normal. 4. There is mild concentric left ventricular hypertrophy. 5. Septal wall motion is delayed, and consistent with conduction delay/bundle branch block. 6. Septal Hypokinesis 7. Apical Hypokinesis. 8. The right ventricle is normal in size. 9. The right ventricular systolic function is mildly impaired. 10. LA is severely dilated >40 ml/m2 11. Electronic pacemaker lead seen in the right ventricular cavity. 12. RA appears enlarged. 13. Aortic valve is trileaflet and is mildly thickened. 14. There is feaw-pc-bisibuss aortic regurgitation. 15. The mitral valve leaflets are mildly thickened. 16. Mild mitral annular calcification present. 17. Moderate mitral regurgitation is present. 18. Moderate tricuspid regurgitation present. 19. There is no evidence of pulmonary hypertension. 20. The right ventricular systolic pressure, as measured by Doppler, is 29.01mmHg. 21. The pulmonic valve was not well visualized. 22. The aortic root size is normal. 23. IVC Not well visulized. 24. There is no pericardial effusion. HOME HEALTH CNA: Morales Patel RDCS
[2018-06-28] MEDS: ACETAMINOPHEN TAB 325 MG TAB PO PRN (15:13)
[2018-06-28] MEDS: VANCOMYCIN 1,250 MG in SODIUM CHLORIDE 0.9% 250 ML IVPB SCH (15:17)
[2018-06-28] MEDS: SERTRALINE 50 MG TAB PEG/G-TUBE SCH (22:06)
[2018-06-29] MEDS: PIPERACILLIN-TAZOBACTAM 3.375 GM in SODIUM CHLORIDE 0.9% 100 ML IVPB SCH ×2 (02:30→15:50)
[2018-06-29] MEDS: ACETAMINOPHEN TAB 325 MG TAB PO PRN (05:00)
[2018-06-29 06:03] LABS: Basophils % (A) 0 %; Eosinophils # (A) 0.1 k/uL (0-0.7); Eosinophils % (A) 1 %; HCT 26.8 % (34.0-46.0); HGB 8.4 gm/dL (11.4-16.0); Hypochromasia Moderate; Lymphocytes # (A) 0.5 k/uL (1.0-4.8); Lymphocytes % (A) 4 %; MCHC 31.4 g/dL (31.0-37.0); MCV 105.2 fL (80.0-100.0); Macrocytosis Moderate; Mean Platelet Volume 8.4; Monocytes # (A) 0.7 k/uL (0-1.0); Monocytes % (A) 6 %; Neutrophils # (A) 11.1 k/uL (1.3-7.7); Neutrophils % (A) 87 %; Platelet Count 183 k/uL (150-450); RBC 2.55 m/uL (3.80-5.40); RDW 15.3 % (11.5-15.5); WBC 12.7 k/uL (3.8-10.6)
[2018-06-29 06:09] LABS: Albumin 2.6 g/dL (3.5-5.0); Calcium 9.1 mg/dL (8.4-10.2); Magnesium 2.1 mg/dL (1.6-2.3); Phosphorus 5.4 mg/dL (2.5-4.5); Potassium 4.6 mmol/L (3.5-5.1); Total Bilirubin 0.5 mg/dL (0.2-1.3); Total Protein 6.4 g/dL (6.3-8.2)
[2018-06-29] MEDS: LEVOTHYROXINE 75 MCG TAB PEG/G-TUBE SCH (06:33)
[2018-06-29] MEDS: RIVAROXABAN 20 MG TAB PO SCH (08:33)
[2018-06-29] MEDS: SPIRONOLACTONE 25 MG TAB PEG/G-TUBE SCH (08:33)
[2018-06-29] MEDS: GABAPENTIN 100 MG CAP PEG/G-TUBE SCH ×2 (08:34→21:33)
[2018-06-29] MEDS: levETIRAcetam ORAL SOLN 500 MG/5 ML CUP PEG/G-TUBE SCH ×2 (08:34→21:32)
[2018-06-29] MEDS: PANTOPRAZOLE 40 MG/10 ML VIAL IV SCH (08:35)
[2018-06-29] MEDS: RANITIDINE SYRUP 150 MG/10 ML CUP PEG/G-TUBE SCH (08:35)
[2018-06-29] MEDS: VANCOMYCIN 1,250 MG in SODIUM CHLORIDE 0.9% 250 ML IVPB SCH (08:35)
[2018-06-29] MEDS: HYDROmorphone 0.5 MG/0.5 ML SYRINGE IVP PRN ×2 (08:59→21:51)
[2018-06-29] MEDS ORDERED: HYDROmorphone 1 MG/ML 1 ML SYRINGE IVP PRN (09:11)
[2018-06-29 12:24] VITALS: BMI 26.3
--- NOTE | 2018-06-29 12:48 | PN ---
PROGRESS NOTE DATE OF SERVICE: 06/29/2018 This is a 77-year-old female seen in followup. She came to the ICU and was admitted with a diagnosis of altered mental status, possibly related to underlying sepsis. She has a history of severe generalized weakness, chronic congestive heart failure, hypotension, hyponatremia, hyperkalemia, chronic atrial fibrillation, status post permanent pacemaker/AICD, esophageal cancer with mets to the liver, status post PEG tube placement, previous history of CVA, hypothyroidism, and possible pneumonia. Currently, the patient is doing very poorly. Yesterday she was a FULL CODE. I talked to her daughter, Andreina, who works as a nurse on the pediatric floor. She was made a DNR. Apparently hospice is being consulted on her. She will leave the hospital at noon and hopefully head home. Her major issue right now is pain. Unnecessary medications were discontinued. I did ask the nurse to use Dilaudid 0.5-1 mg every 1-2 hours as needed for pain control.Her is at the bedside.The CT of the abdomen showed progression of her disease. She has progression of metastatic deposits and foci within the liver.Overall prognosis is poor. Again, I did have that conversation with the daughter yesterday. Temperature 97.1, heart rate 61, respiratory rate 18, blood pressure is only 71/ 53 with mean of 59, room air saturation 88%. Appears very weak and lethargic. She is able to speak in full sentences. Does seem mildly tachypneic. HEENT examination is grossly unremarkable. Mucous membranes are dry. Neck is supple. Cardiovascular examination reveals regular rhythm and rate. Heart rate is about 60 beats per minute. S1, S2 normal. Lungs reveal relatively clear breath sounds. A few scattered rhonchi. No wheezes or crackles. Abdomen is soft. Bowel sounds are heard. Extremities are intact. No cyanosis, clubbing, or edema. Skin without rash. Neurologic examination is nonfocal. LABORATORY DATA: White count 12.7, hemoglobin 8.4, hematocrit 26.8, platelet count normal, sodium 128, potassium 4.6, chloride 99, CO2 of 32, anion gap is 7, BUN and creatinine were 54 and 0.78. Her troponin was 0.083. TSH was 7.610. The rest of the labs are reviewed. Microbiologic studies are negative thus far. Medications are reviewed. All unnecessary medications were discontinued. ASSESSMENT: 1. Mental status changes of unclear etiology. Brain CT did not show an acute abnormality. 2. Severe generalized weakness. 3. Elevated troponin levels, rule out myocardial ischemia versus supply demand mismatch. 4. Chronic congestive heart failure. 5. Hypotension. 6. Hyponatremia. 7. Hyperkalemia. 8. Chronic atrial fibrillation. 9. Status post permanent pacemaker/AICD placement. 10.History of esophageal cancer with metastasis to the liver, which has progressed significantly. 11.Status post PEG tube placement. 12.Previous history of cerebrovascular accident. 13.Hypothyroidism. PLAN: Dated 06/29/2018. Overall prognosis is very poor. I had a long conversation with the daughter, Mallory, yesterday. She agrees that the patient should be DNR. She would not want mother on the ventilator. To me the most humane thing to do would be to go ahead and consult hospice to see if we cannot get her home so she could be with her family. Her biggest issues right now is pain. The only thing ordered was Tylenol. I have asked the nurse to use Dilaudid 0.5-1 mg every 1-2 hours p.r.n. Hopefully that will get her pain under better control. No additional recommendations are made. Prognosis is very poor. We will continue to follow. MMODL / IJN: [id number] / MAURA
--- NOTE | 2018-06-29 13:46 | P.PN ---
Subjective Progress Note Date: 06/29/18 The patient is a 77 yo F with a PMH of metastatic esophageal cancer s/p PEG tube , CHF s/p AICD placement, hypothyroidism, hyponatremia, and chronic A-fib who was admitted due to worsening mental status, lethargy, and abdominal pain. The patient was noted to be hypotensive in the ED and was admitted to the ICU. CT abdomen/pelvis revealed worsening metastatic disease of the liver with WBC count 20.8. She was started on broad spectrum IV abxs. Pulmonary service had a discussion with patient's family regarding goals of care and the agreement was made to make patient DNR/DNI with a consultation for hospice service. The patient was seen and examined with family at the bedside on 06/29/18. The patient's family met with the hospice nurse earlier today and decided to take patient home tomorrow between 3 and 5 pm with home-hospice. The patient's mental status improved from yesterday and she is following commands and answering questions appropriately. She notes mild continued tito lower abdominal pain but otherwise denied any further complaints. Objective - Vital Signs Vital signs: Vital Signs Temp 97.1 F L 06/29/18 09:00 Pulse 60 06/29/18 11:00 Resp 15 06/29/18 11:00 BP 73/45 06/29/18 11:00 Pulse Ox 92 L 06/29/18 11:00 Intake & Output 06/28/18 06/29/18 06/29/18 18:59 06:59 18:59 Intake Total 385 590 425 Output Total 1080 970 245 Balance -695 -380 180 Weight 61 kg 61.1 kg 61.1 kg Intake: IV 265 280 275 Normal saline 90 155 25 Piperacillin-Tazobactam 3 175 125 .375 gm In Sodium Chloride 0.9% 100 ml @ 25 mls/hr IVPB Q8H [facility] Rx#: [id number] Vancomycin 1,000 mg In 250 Sodium Chloride 0.9% 250 ml @ 125 mls/hr IVPB Q24H [facility] Rx#:[id number] Tube Feeding 220 150 Other 120 90 Output: Urine 1080 970 245 Other: Voiding Method Indwelling Catheter Indwelling Catheter Indwelling Catheter - Exam General: Non-toxic, lethargic F, appears stated age HEENT: NC/AT, anicteric sclerae, moist conjunctiva, no lid-lag, PERRLA Cardiovascular: S1/S2 wnl, no murmurs, rubs, or gallops Lungs: Mild bibasilar rales, normal respiratory effort, no accessory muscle use Abdominal: Soft, nontender, non-distended, no guarding, rebound, or rigidity, PEG tube site w/ mild purulence, non-tender Skin: Warm, dry Extremities: No edema or contractures Psychiatric: Alert and oriented to person and place Neuro: Moving all extremities spontaneously, no focal sensory deficits - Labs CBC & Chem 7: 06/29/18 05:28 18 05:28 Labs: Abnormal Lab Results - Last 24 Hours (Table) 06/29/18 06/29/18 Range/Units 05:28 05:28 WBC 12.7 H (3.8-10.6) k/uL RBC 2.55 L (3.80-5.40) m/uL Hgb 8.4 L (11.4-16.0) gm/dL Hct 26.8 L (34.0-46.0) % MCV 105.2 H (80.0-100.0) fL Neutrophils # 11.1 H (1.3-7.7) k/uL Lymphocytes # 0.5 L (1.0-4.8) k/uL Sodium 128 L (137-145) mmol/L Chloride 89 L (98-107) mmol/L Carbon Dioxide 32 H (22-30) mmol/L BUN 54 H (7-17) mg/dL Glucose 117 H (74-99) mg/dL Phosphorus 5.4 H (2.5-4.5) mg/dL AST 47 H (14-36) U/L Alkaline Phosphatase 197 H (38-126) U/L Albumin 2.6 L (3.5-5.0) g/dL Microbiology - Last 24 Hours (Table) 06/27/18 21:00 Urine Culture - Final Urine,Catheterized 06/27/18 20:45 Blood Culture - Preliminary Blood No Growth after 24 hours Assessment and Plan Plan: Altered mental status of unknown etiology, likely secondary to advance metastatic disease -CT head unremarkable -CT abd showing progressive disease w/ mets to liver -Continue to monitor mental status Hx of CHF -Not in active fluid overload at this time -Lasix DCed -Cardiology recs and Echo appreciated Esophageal malignancy w/ metastasis to liver -- progressive disease -Family agreed on home-hospice placement, will be DCed tomorrow -Family doesn't wish to use pressors and patient will remain DNR/DNI -Patient restarted on tube-feeding -Started on Dilaudid prn for pain control Leukocytosis -Likely secondary to advanced malignancy -No clear source of infection -Will c/w broad spectrum IV abxs for now. Patient will not be DCed with abx Hyperkalemia, Hypermagnasemia, Hyperphosphatemia -Resolved Chronic A-fib -C/w Xarelto for now Macrocytic anemia -Likely due to chronic disease DVT//GI proph -Xarelto
[2018-06-29] MEDS ORDERED: SACUBITRIL/VALSARTAN 24 MG-26 MG TABLET PO SCH (21:00)
[2018-06-29] MEDS: SERTRALINE 50 MG TAB PEG/G-TUBE SCH (21:33)
[2018-06-30] MEDS: PIPERACILLIN-TAZOBACTAM 3.375 GM in SODIUM CHLORIDE 0.9% 100 ML IVPB SCH ×2 (00:07→10:04)
[2018-06-30 04:02] VITALS: TEMP 98.3
[2018-06-30 05:42] LABS: Basophils % (A) 0 %; Eosinophils # (A) 0.1 k/uL (0-0.7); Eosinophils % (A) 1 %; HCT 26.7 % (34.0-46.0); HGB 8.3 gm/dL (11.4-16.0); Hypochromasia Moderate; Lymphocytes # (A) 0.5 k/uL (1.0-4.8); Lymphocytes % (A) 6 %; MCH 32.4 pg (25.0-35.0); MCV 104.7 fL (80.0-100.0); Macrocytosis Moderate; Mean Platelet Volume 8.6; Monocytes # (A) 0.6 k/uL (0-1.0); Monocytes % (A) 7 %; Neutrophils # (A) 8.2 k/uL (1.3-7.7); Neutrophils % (A) 85 %; Platelet Count 194 k/uL (150-450); RBC 2.55 m/uL (3.80-5.40); RDW 15.4 % (11.5-15.5); WBC 9.7 k/uL (3.8-10.6)
[2018-06-30] MEDS: HYDROmorphone 0.5 MG/0.5 ML SYRINGE IVP PRN (05:43)
[2018-06-30 05:45] LABS: Anion Gap 6 mmol/L; Blood Urea Nitrogen 53 mg/dL (7-17); Calcium 8.9 mg/dL (8.4-10.2); Carbon Dioxide 35 mmol/L (22-30); Chloride 90 mmol/L (98-107); Glucose 135 mg/dL (74-99); Potassium 3.5 mmol/L (3.5-5.1); Sodium 131 mmol/L (137-145)
[2018-06-30] MEDS: LEVOTHYROXINE 75 MCG TAB PEG/G-TUBE SCH (05:48)
--- NOTE | 2018-06-30 09:09 | P.PN ---
Progress Note - Text Patient's blood pressure remains low at 80/45 mmHg pulse rate in the 60s respirations 16 She was admitted with heart failure symptoms and hypertension. She has metastatic cancer with known ischemic cardiopathy Suggest ENTRESTO for now Continue IV antibiotics Prognosis poor
[2018-06-30] MEDS: RIVAROXABAN 20 MG TAB PO SCH (10:56)
[2018-06-30] MEDS: GABAPENTIN 100 MG CAP PEG/G-TUBE SCH (10:56)
[2018-06-30] MEDS: levETIRAcetam ORAL SOLN 500 MG/5 ML CUP PEG/G-TUBE SCH (10:57)
[2018-06-30 12:08] VITALS: BP 84/47; PULSE 59; RESP 15
--- NOTE | 2018-06-30 13:17 | P.DS ---
Providers Date of admission: 06/28/18 00:51 Expected date of discharge: 06/30/18 Attending physician: Brian Grijalva MD Consults: 06/28/18 02:03 Consult Physician Routine Consulting Provider: Sarthak Felix Consult Reason/Comments: ICU Placement Do you want consulting provider notified?: Already Contacted 06/28/18 09:36 Consult Physician Urgent Consulting Provider: Betsey Chauhan Consult Reason/Comments: CHF exacerbation Do you want consulting provider notified?: Yes Primary care physician: [facility] Course: The patient is a 77 yo F with a PMH of metastatic esophageal cancer s/p PEG tube , CHF s/p AICD placement, hypothyroidism, hyponatremia, and chronic A-fib who was admitted due to worsening mental status, lethargy, and abdominal pain. The patient was noted to be hypotensive in the ED and was admitted to the ICU. CT abdomen/pelvis revealed worsening metastatic disease of the liver with WBC count 20.8. She was started on broad spectrum IV abxs. Pulmonary service had a discussion with patient's family regarding goals of care and the decision was made to make patient DNR/DNI with a consultation for hospice service. The patient's family met with the hospice team and decided to take the patient home w/ home-hospice. The patient's mental status improved following hospitalization. The patient's WBC count gradually improved and her electrolyte abnormalities resolved. Patient's blood cultures and urine cultures remained negative. The patient also had a large BM which improved her abdominal pain. The patient is presently stable and ready for discharge to home-hospice. Physical Examination General: Elderly smiling F, appears stated age HEENT: NC/AT, anicteric sclerae, moist conjunctiva, no lid-lag, PERRLA Cardiovascular: S1/S2 wnl, no murmurs, rubs, or gallops Lungs: Clear to auscultation, normal respiratory effort, no accessory muscle use Abdominal: Soft, nontender, non-distended, no guarding, rebound, or rigidity, PEG site intact Skin: Warm, dry Extremities: No edema or contractures Psychiatric: Alert and oriented to person and place Neuro: Moving all extremities spontaneously Discharge diagnosis: Metastatic esophageal cancer; CHF s/p AICD; Altered mental status of unknown etiology; Chronic A-fib, Macrocytic anemia Resolved: Hyperkalemia, Hypermagnasemia, Hyperphosphatemia; Leukocytosis A total of 60 minutes of time were spent preparing this complex discharge summary. Patient Condition at Discharge: Poor Plan - Discharge Summary New Discharge Prescriptions: Continue Levothyroxine Sodium [Synthroid] 100 mcg PEG/G-TUBE QAM Gabapentin [Neurontin] 100 mg PEG/G-TUBE BID Rivaroxaban [Xarelto] 20 mg PEG/G-TUBE DAILY #30 tab levETIRAcetam [Keppra Oral Solution] 1,000 mg PEG/G-TUBE Q12H Sertraline [Zoloft] 50 mg PEG/G-TUBE HS Ranitidine Syrup [Zantac Syrup] 150 mg PEG/G-TUBE BID Hydrocodone/Acetaminophen [Hycet 7.5 mg-325 mg/15 ml Soln] 5 - 10 ml PEG/G- TUBE Q8H PRN PRN Reason: Pain Discontinued Sacubitril/Valsartan [Entresto 24 mg-26 mg Tablet] 1 tab PEG/G-TUBE BID Furosemide [Lasix] 40 mg PEG/G-TUBE DAILY PRN PRN Reason: Edema Spironolactone [Aldactone] 25 mg PEG/G-TUBE DAILY Diphenoxylate HCl/Atropine [Lomotil 2.5-0.025 mg Tablet] 1 tab PEG/G-TUBE DAILY No Action Ondansetron [Zofran ODT] 4 mg PEG/G-TUBE Q6H PRN PRN Reason: Nausea And Vomiting Acetaminophen [Tylenol Arthritis] 650 mg PEG/G-TUBE Q6H PRN PRN Reason: Fever And/ Or Pain Discharge Medication List Levothyroxine Sodium [Synthroid] 100 mcg PEG/G-TUBE QAM 08/01/14 [History] Gabapentin [Neurontin] 100 mg PEG/G-TUBE BID 01/28/18 [History] Rivaroxaban [Xarelto] 20 mg PEG/G-TUBE DAILY #30 tab 02/02/18 [Rx] levETIRAcetam [Keppra Oral Solution] 1,000 mg PEG/G-TUBE Q12H 02/04/18 [History] Acetaminophen [Tylenol Arthritis] 650 mg PEG/G-TUBE Q6H PRN 06/27/18 [History] Hydrocodone/Acetaminophen [Hycet 7.5 mg-325 mg/15 ml Soln] 5 - 10 ml PEG/G-TUBE Q8H PRN 06/27/18 [History] Ondansetron [Zofran ODT] 4 mg PEG/G-TUBE Q6H PRN 06/27/18 [History] Ranitidine Syrup [Zantac Syrup] 150 mg PEG/G-TUBE BID 06/27/18 [History] Sertraline [Zoloft] 50 mg PEG/G-TUBE HS 06/27/18 [History] Follow up Appointment(s)/Referral(s): Taina Ramirez MD [Primary Care Provider] - 1-2 days Discharge Disposition: HOME WITH HOSPICE
[2018-06-30] MEDS ORDERED: VANCOMYCIN TROUGH DUE 1 EACH MISC MISCELLANE ONE (15:00)
--- NOTE | 2018-06-30 15:19 | CDI ---
Documentation Clarification Form Date: 06/30/2018 3:09:23 PM From: Bárbara Benz CCS, CCDS Admit Date: 06/28/2018 12:51:00 AM Patient Name: Glenis Feliciano Visit Number: [id number] Discharge Date: ATTENTION: The Clinical Documentation Specialists (CDI) and [facility] Coding Staff appreciate your assistance in clarifying documentation. Please respond to the clarification below the line at the bottom and electronically sign. The CDI & [facility] Coding staff will review the response and follow-up if needed. Please note: Queries are made part of the Legal Health Record. If you have any questions, please contact the author of this message via ITS. Dr. Piper Faith: The patient presented with the following: worsening mental status, lethargy & abdominal pain. Noted to be hypotensive in the ED & admitted to ICU. Per the 06/29 Pulmonary progress note: She came to the ICU and was admitted with a diagnosis of altered mental status, possibly related to underlying sepsis. History/Risk Factors: Metastatic esophageal cancer with PEG tube, systolic CHF, AICD, hypothyroidism, Hyponatremia & chronic A Fib. Clinical Indicators: VS: T 97.3*, R 20 (shallow,tachypnea), BP 110/80 - 93/59*, PO 97 ra WBC: 20.8; Lactic acid: (1.1) Blood Cxs pending after 48 hrs, Urine cx final: neg. Other Clinical Indicators: CT Abdomen/Pelvis: Worsening metastatic disease of the liver. Treatment: IV antibiotics, IV Dextrose/Water, IV Lasix, IV Insulin, IV Calcium gluconate, Albuterol INH, Made DNR/DNI by family & discharged home with home hospice. In your professional opinion, please clarify if these findings signify one of the following conditions, whether the condition is POA, and cause, if known: Sepsis ruled out Sepsis ruled in SIRS, without underlying infectious process Other, please specify Unable to determine Present on Admission: Yes or No (Last Revision: October 2017) SIRS, without underlying infectious process Present on Admission MTDD
== END 2018-06-30 16:29 | disposition hospice, home (50) | DRG 435 ==
LOC: EC 18:46 → 2SICU 06-28 00:51
PROVIDERS: ADMIT Internal Medicine; ATTEND Internal Medicine
DX: C78.7 Secondary malignant neoplasm of liver and intrahepatic bile duct (principal); I50.23 Acute on chronic systolic (congestive) heart failure; C15.9 Malignant neoplasm of esophagus, unspecified; E87.1 Hypo-osmolality and hyponatremia; J98.11 Atelectasis; R65.10 Systemic inflammatory response syndrome (SIRS) of non-infectious origin without acute organ dysfunction; D53.9 Nutritional anemia, unspecified; D63.8 Anemia in other chronic diseases classified elsewhere; D72.829 Elevated white blood cell count, unspecified; E03.9 Hypothyroidism, unspecified; E87.5 Hyperkalemia; G40.909 Epilepsy, unspecified, not intractable, without status epilepticus; I11.0 Hypertensive heart disease with heart failure; I25.5 Ischemic cardiomyopathy; I48.2 Chronic atrial fibrillation; K44.9 Diaphragmatic hernia without obstruction or gangrene; K59.00 Constipation, unspecified; L89.152 Pressure ulcer of sacral region, stage 2; Z66 Do not resuscitate; Z79.01 Long term (current) use of anticoagulants; Z82.49 Family history of ischemic heart disease and other diseases of the circulatory system; Z86.718 Personal history of other venous thrombosis and embolism; Z86.73 Personal history of transient ischemic attack (TIA), and cerebral infarction without residual deficits; Z90.710 Acquired absence of both cervix and uterus; Z92.21 Personal history of antineoplastic chemotherapy; Z92.3 Personal history of irradiation; Z93.1 Gastrostomy status; Z95.810 Presence of automatic (implantable) cardiac defibrillator
CPT/HCPCS: 36415; 70450; 71046; 74177; 80048; 80053; 81003; 82533; 83036; 83605; 83690; 83735; 83880; 84100; 84439; 84443; 84484; 85025; 85610; 85730; 87040; 87086; 87502; 93005; 93306; 94640; 96365; 96366; 96375; 99213; 99285